=== PATIENT | female | born 1930 | race Caucasian/White ===

== ENCOUNTER 2018-11-15 14:53 | Inpatient (IN) ==
[2018-11-15] MEDS ORDERED: traMADol 50 MG TABLET PO PRN (17:03)
[2018-11-15] MEDS ORDERED: Naloxone 0.4 MG/ML INJ IVP PRN (17:03)
--- NOTE | 2018-11-15 17:12 | Internal Med History&Physical ---
Date of Encounter: 11/15/18 Time of Encounter: 17:09 Internal Medicine - H&P: HPI Admitted From: Home Plans for Post Hospital Care: Home History of present illness: Ms. Reyes is a 88 year old female with past medical history of CHF, hypertension, hyperlipidemia, and irregular rhythm WHO presented to [facility] ED for shortness of breath. She went to see her PCP on Monday for urinary tract infection, a routine EKG found new onset of atrial fibrillation, patient was started on Bactrim. She already taking metoprolol and heart rate was controlled. She did not receive anticoagulation with unknown reason. She also has known history of CHF, about 2-1/2 weeks ago Lasix dose has been adjusted by nephrology due to worsening leg swelling. Today, patient states that he she experienced worsening shortness of breath, accompanied by daughter, she went to emergency room. Labs revealed an elevated troponin, patient received 1 dose of 40 mg Lasix IV, and was transferred to this hospital for further evaluation and management. Upon arrival, patient is alert and oriented 3. Her vital signs were stable with heart rate about 80 degrees. Telemetry showed atrial fibrillation, rate controlled. Patient will be admitted for further evaluation and treatment. CODE STATUS discussed with the patient, she wishes full code at this point. Past Med Surg Social Fam HX - Past Medical History Medical history: cancer, hyperlipidemia, hypertension Additional medical history: colon ca, Psychiatric history: no psych history - Past Surgical History Surgical History: colectomy Additional surgical history: CTR - Social History Smoking Status: Never smoker Smokeless Tobacco Status: No Alcohol use: none Drug use: none Internal Medicine - H&P: Meds Amlodipine Besylate 5 mg PO DAILY 05/10/17 [History] Aspirin [Lo-Dose Aspirin EC] 81 mg PO DAILY 05/10/17 [History] Atorvastatin Calcium [Lipitor] 20 mg PO HS 05/10/17 [History] Cranberry Conc/C/Bacill Coag [Cranberry Tablet] 1 each PO DAILY 05/10/17 [History] Ergocalciferol (VITAMIN D2) [Vitamin D] 400 unit PO DAILY 05/10/17 [History] Furosemide [Lasix] 40 mg PO TID 05/10/17 [History] Magnesium 500 mg PO DAILY 05/10/17 [History] Melatonin [Melatin] 3 mg PO HS 05/10/17 [History] Metoprolol Succinate 100 mg PO DAILY 05/10/17 [History] Multivit-Min/FA/Lycopen/Lutein [Centrum Silver Tablet] 1 each PO DAILY 05/10/17 [History] Oxybutynin [Ditropan] 5 mg PO HS 05/10/17 [History] raNITIdine HCl [Zantac] 150 mg PO BID 05/10/17 [History] Allergy/AdvReac Type Severity Reaction Status Date / Time No Known Allergies Allergy Verified 05/10/17 08:08 All Systems PM: A 10-system review of systems was performed and is negative for pertinent findings except as documented above in the HPI. Review of systems: REVIEW OF SYSTEMS: CONSTITUTIONAL: No weight loss, fever, chills, weakness or fatigue. HEENT: Eyes: No visual loss, blurred vision, double vision or yellow sclerae. Ears, Nose, Throat: No hearing loss, sneezing, congestion, runny nose or sore throat. SKIN: No rash or itching. CARDIOVASCULAR: No chest pain, chest pressure or chest discomfort. No palpitations. see HPI. RESPIRATORY: No shortness of breath, cough or sputum. GASTROINTESTINAL: No anorexia, nausea, vomiting or diarrhea. No abdominal pain or blood. GENITOURINARY: No dysuria, urgency, or frequency. NEUROLOGICAL: No headache, dizziness, syncope, paralysis, ataxia, numbness or tingling in the extremities. No change in bowel or bladder control. MUSCULOSKELETAL: No muscle, back pain, joint pain or stiffness. HEMATOLOGIC: No anemia, bleeding or bruising. LYMPHATICS: No enlarged nodes. No history of splenectomy. PSYCHIATRIC: No history of depression or anxiety. ENDOCRINOLOGIC: No reports of sweating, cold or heat intolerance. No polyuria or polydipsia. - Constitutional Vitals: Temp Pulse BP Pulse Ox 97.9 F 78 127/76 83 11/15/18 16:44 11/15/18 16:44 11/15/18 16:44 11/15/18 16:44 General appearance: Present: cooperative, A&O X 3, answers questions appropriately Exam: PHYSICAL EXAMINATION: GENERAL APPEARANCE: The patient is alert, oriented and in no acute distress. HEENT: Head is normocephalic. The sinuses are nontender. Pupils are equal and reactive. The nares are patent. Oropharynx clear without lesions. NECK: Supple without lymphadenopathy. HEART: Regular rate and rhythm. LUNGS: No crackles or wheezes are heard. ABDOMEN: Soft, nontender, nondistended with good bowel sounds heard. Inguinal area is normal. EXTREMITIES: 2 + edema on BLE. NEUROLOGICAL: Gross nonfocal. SKIN: Warm and dry without any rash. - Assessment and plan (1) CHF (congestive heart failure), NYHA class III Current Visit: Yes Status: Acute Assessment and plan: A 80-year-old female with history of CHF presented with worsening shortness of breath and leg edema. She received IV Lasix at outside hospital ED. Patient stated she never see any cardiology for her heart failure. Unclear whether there was echocardiogram was done in the past. - Patient was clearly volume overloaded on physical exam, we will continue IV Lasix. - Labs including BNP, TSH, BMP in the morning, echocardiogram in the morning. - Chest x-ray ordered. - Cardiology consult for newly diagnosed CHF. Qualifiers: Congestive heart failure chronicity: acute on chronic Qualified Code(s): I50.23 - Acute on chronic systolic (congestive) heart failure (2) Afib Current Visit: Yes Status: Acute Assessment and plan: Patient reported that she has been diagnosed with irregular rhythm in the past, unclear it is atrial fibrillation or not because there is no record available. EKG at [facility] ED showed atrial fibrillation. She already take metoprolol 100 mg once a day at home, heart rate was controlled. - chads score 3, unclear why the patient was not on anticoagulation, maybe because it was diagnosed recently. - Pending TSH and echocardiogram. - Cardiology consult. Qualifiers: Atrial fibrillation type: chronic Qualified Code(s): I48.2 - Chronic atrial fibrillation (3) HTN (hypertension) Current Visit: No Status: Chronic Assessment and plan: BP controlled, continue home medications. Qualifiers: Hypertension type: essential hypertension Qualified Code(s): I10 - Essential (primary) hypertension (4) Hyperlipidemia Current Visit: No Status: Chronic Assessment and plan: Continue home medication. Qualifiers: Hyperlipidemia type: pure hypercholesterolemia Qualified Code(s): E78.00 - Pure hypercholesterolemia, unspecified; E78.0 - Pure hypercholesterolemia (5) Elevated troponin Current Visit: Yes Status: Acute Assessment and plan: Report received from [facility] stated the patient has elevated troponin. Unknown etiology as his chronic, and unknown baseline, could be caused by CHF/tachycardia/demanding ischemia. Continue cycling troponin, (6) DVT prophylaxis Current Visit: Yes Status: Acute Assessment and plan: Heparin subcutaneous. - Time Spent With Patient Total time spent is greater than 50% in coordination of care (as documented) at patient's floor/unit and/or counseling patient: Greater than 35 minutes
[2018-11-15 17:57] LABS: Calcium 9.5 mg/dL (8.6-10.3); Potassium 3.2 mEq/L (3.5-5.1)
[2018-11-15 18:02] LABS: Troponin I 0.1 ng/mL (< 0.04)
[2018-11-15] MEDS: Furosemide 80 MG in 0.9 % Sodium Chloride 50 ML IVPB SCH (18:35)
[2018-11-15] MEDS: Famotidine 20 MG TABLET PO SCH (20:18)
[2018-11-15] MEDS: Melatonin 3 MG TABLET PO SCH (20:18)
[2018-11-15] MEDS: *HR* Heparin 5,000 UNIT/ML VIAL SQ SCH (21:39)
[2018-11-15] MEDS: Acetaminophen 325 MG TABLET PO PRN (21:55)
[2018-11-16 04:09] LABS: Bilirubin,Urine Negative (Negative); Blood,Urine Negative (Negative); Clarity,Urine Clear (Clear); Color,Urine Yellow (Yellow); Glucose,Urine (UA) Normal (Normal); Ketones,Urine Negative (Negative); Leukocyte Esterase,Urine Moderate (Negative); Nitrite,Urine Negative (Negative); PH,Urine 7.5 pH Units (5.0-8.0); Protein,Urine Negative (Neg-Trace); Specific Gravity,Urine 1.014 (1.010-1.025); Urobilinogen,Urine Normal (Normal)
[2018-11-16 04:11] LABS: Bacteria,Urine None Seen per hpf (None-Few); Hyaline Casts,Urine None Seen per lpf (None-Few); Squamous Epithelial Cell,Urine Moderate per lpf (None-Few)
[2018-11-16] MEDS: *HR* Heparin 5,000 UNIT/ML VIAL SQ SCH ×2 (05:26→18:29)
[2018-11-16] MEDS: Furosemide 80 MG in 0.9 % Sodium Chloride 50 ML IVPB SCH (05:26)
[2018-11-16 06:19] LABS: Basophils % 0.5 %; Eosinophils # 0.1 K/mcL (0.0-0.6); Eosinophils % 1.4 %; Hematocrit 29.9 % (35.3-44.9); Hemoglobin 9.4 g/dL (11.5-15.4); Immature Granulocytes % 0.2 % (0-4); Lymphocytes # 1.2 K/mcL (0.6-4.6); Lymphocytes % 19.5 %; Mean Corpuscular HGB Conc 31.4 g/dL (31.6-35.5); Mean Corpuscular Hemoglobin 27.2 pg (28.0-33.3); Mean Corpuscular Volume 86.4 fL (83.0-100.0); Mean Platelet Volume 9.6 fL (9.4-12.4); Monocytes # 0.8 K/mcL (0.0-1.3); Monocytes % 12.7 %; Neutrophils # 4.1 K/mcL (1.6-8.9); Platelet Count 209 K/mcL (140-400); Red Blood Count 3.46 M/mcL (3.82-4.97); Red Cell Distribution Width 14.8 % (11.5-14.5); Segmented Neutrophils % 65.7 %
[2018-11-16 06:20] LABS: INR 1.3; Prothrombin Time 14.7 Seconds (9.4-12.1)
[2018-11-16 06:43] LABS: Albumin 3.2 g/dL (3.5-5.7); Albumin/Globulin Ratio 1.1 (1.1-2.2); Bilirubin,Total 0.9 mg/dL (0.3-1.0); Globulin 2.9 g/dL (2.4-3.5); Magnesium 2.4 mg/dL (1.6-2.6); Potassium 3.3 mEq/L (3.5-5.1); Total Protein 6.1 g/dL (6.4-8.9)
[2018-11-16 06:48] LABS: Thyroid Stimulating Hormone 0.77 mcIU/mL (0.340-5.600)
--- NOTE | 2018-11-16 08:55 | Cardiology Consult Note ---
<Angie Monroe - Last Filed: 11/16/18 13:04> Date of Encounter: 11/16/18 Time of Encounter: 08:15 Assessment and Plan (1) CHF (congestive heart failure), NYHA class III Current Visit: Yes Status: Acute But likely exacerbation as she has been on lasix outpatient in the past and recently in the past one month her edema and shortness of breath has worsened. BNP is at 544. She does follow outpatient with nephrology, and her creatinine at admission was 1.96 and this morning is 2.10, appears to have CKD stage 4. Her output has not been very significant. She may need nephrology based hemodialysis if her edema does not improve and continues to have shortness of breath. -Continue Lasix 80 mg IV BID -Fluid restriction of less than 2 liters -Strict fluid restriction diet Qualifiers: Congestive heart failure chronicity: acute on chronic Qualified Code(s): I50.23 - Acute on chronic systolic (congestive) heart failure (2) Afib Current Visit: Yes Status: Acute New onset atrial fibrillation noted at outpatient office 4 days ago. She does give history of irregular heart rhythm in the past but is not sure of the ariel gnosis. She is rate controlled and was already on metoprolol 100 mg daily at home. Is not on any home anticoagulants. Her ChadsVac score is 5 so she is high risk and would likely benefit from an anticoagulant. Recommended GI evaluation first as she stated history of bloody bowel movement one month ago and currently anemic. -Repeat EKG pending -Continue home metoprolol Qualifiers: Atrial fibrillation type: chronic Qualified Code(s): I48.2 - Chronic atrial fibrillation (3) Elevated troponin Current Visit: Yes Status: Acute Elevated troponin in setting of CHF exacerbation. Troponin 0.10, 0.10 and 0.09 at admission. She denies any previous or current chest pain. No previous echo. -TTE pending Discussion w patient/family: The assessment and plan as outlined above was discussed with the patient and/or family members who expressed understanding and agreement. All questions were answered. Thank you for involving us in the care of your patient. Please call with any questions. History of Present Illness Consult date: 11/15/18 Requesting physician: Jorge Romero Consult reason: CHF Chief complaint: shortness of breath History of present illness: Ms. Reyes is a 88 year old female with past medical history of CHF, hypertension and irregylar rhythm who presented to the hospital from [facility] due to shortness of breath ongoing for the past one month. She had presented to her ED on Monday for a UTI and was noted to have atrial fibrillation. She is already on metoprolol 100 mg oral daily. She is not on any anticoagulation. She has been following with nephrology and noted they increased her lasix 2.5 weeks ago due to worsening edema. She does not follow a fluid restriction diet. This morning she is resting in bed with 2 liters of nasal cannula with oxygen saturation of 86%. She denied feeling short of breath this morning with the nasal canula. She said her shortness of breath has improved since her admission but also noted she is usually not short of breath at rest and it worsens with walking. She also noted decrease in ability to fully empty her bladder. She denied PND or orthopnea. She denies fever, chills, emesis or chest pain. Past Med Surg Social Fam HX - Past Medical History Medical history: cancer, hyperlipidemia, hypertension Additional medical history: colon ca, Psychiatric history: no psych history - Past Surgical History Surgical History: colectomy Additional surgical history: CTR - Social History Smoking Status: Never smoker Smokeless Tobacco Status: No Alcohol use: none Drug use: none - Family History Father Living Status: Age at : 71 Cause of : heart trouble Hx Family Cardiac Disorders: Yes Hx Family Respiratory Disorders: No Hx Family Cancer: No Hx Family GI Disorders: No Hx Family Genitourinary Disorders: No Hx Family Endocrine Disorder: No Hx Family Musculoskeletal Disorders: No Hx Family Neuromuscular Disorders: No Hx Family Neurologic Disorders: No Hx Family HEENT Disorders: No Hx Family Autoimmune Disorders: No Hx Family Reproductive Disorders: No Hx Family Psychosocial Disorders: No Hx Family Medical Disorders: Yes Medications and Allergies RX: Aspirin [Lo-Dose Aspirin EC] 81 mg PO DAILY 05/10/17 [History] RX: Atorvastatin Calcium [Lipitor] 20 mg PO HS 05/10/17 [History] RX: Cranberry Conc/C/Bacill Coag [Cranberry Tablet] 1 each PO DAILY 05/10/17 [History] RX: Ergocalciferol (VITAMIN D2) [Vitamin D] 400 unit PO DAILY 05/10/17 [History] RX: Furosemide [Lasix] 80 mg PO DAILY 05/10/17 [History] RX: Melatonin [Melatin] 3 mg PO HS 05/10/17 [History] RX: Multivit-Min/FA/Lycopen/Lutein [Centrum Silver Tablet] 1 each PO DAILY 05/10/17 [History] RX: Oxybutynin [Ditropan] 5 mg PO HS 05/10/17 [History] Amlodipine Besylate 5 mg PO DAILY 11/15/18 [History] Metoprolol Succinate [Toprol Xl] 100 mg PO DAILY 11/15/18 [History] RX: Sulfamethoxazole/Trimeth DS [Bactrim Ds] 1 tab PO BID 11/15/18 [History] Ranitidine HCl [Zantac 75] 75 mg PO DAILY 11/15/18 [History] Allergy/AdvReac Type Severity Reaction Status Date / Time No Known Allergies Allergy Verified 11/15/18 21:48 All Systems Review: The remainder of the systems were reviewed and are negative - Constitutional Constitutional: no chills, no fever(s), no weakness - Cardiovascular Cardiovascular: dyspnea on exertion, no chest pain at rest, no chest pain with exertion, no dyspnea at rest, no orthopnea, no palpitations, no paroxysmal nocturnal dyspnea - Respiratory Respiratory: dyspnea, no cough, no wheezing - Gastrointestinal Gastrointestinal: no constipation, no diarrhea - Integumentary Integumentary: no erythema, no rash - Neurological Neurological: no focal weakness, no numbness - Psychiatric Psychiatric: no anxiety, no depression Physical Examination Vital Signs, Last 4 Hours Temp Pulse Resp BP Pulse Ox 11/16/18 06:49 97.2 F L 79 16 114/65 94 General: Conversant, No Apparent Distress HEENT: Atraumatic, Normocephaly, Mucus Membranes Moist Neck: No JVD, Normal carotid pulses Cardiac: Reg Rate and Rhythm, Normal S1 and S2, No Murmur Lungs: Normal Breath Sounds, Other (crackles bilateral lower lobes) Neuro: Alert and responsive Abdomen: Soft, Non-Tender Skin: No rashes noted on visualized skin Musculoskeletal: No Chest Wall Tenderness Extremities: No Cyanosis, No Edema, Normal Pulses Results 11/16/18 05:12 11/16/18 05:12 Lab Results 11/15/18 11/15/18 11/16/18 17:13 23:41 05:12 WBC Hgb Hct Plt Count INR Sodium 136 Potassium 3.2 L Chloride 94 L Carbon Dioxide 31 H BUN 17 Creatinine 1.96 H Glucose 105 Calcium 9.5 Magnesium Total Bilirubin AST ALT Alkaline Phosphatase Troponin I 0.10 H* 0.10 H* 0.09 H* B-Natriuretic Peptide TSH 11/16/18 11/16/18 11/16/18 05:12 05:12 05:12 WBC 6.2 Hgb 9.4 L Hct 29.9 L Plt Count 209 INR 1.3 Sodium 137 Potassium 3.3 L Chloride 95 L Carbon Dioxide 32 H BUN 19 Creatinine 2.10 H Glucose 84 Calcium 9.0 Magnesium 2.4 Total Bilirubin 0.9 AST 26 ALT 13 Alkaline Phosphatase 72 Troponin I B-Natriuretic Peptide TSH 11/16/18 11/16/18 05:12 05:12 WBC Hgb Hct Plt Count INR Sodium Potassium Chloride Carbon Dioxide BUN Creatinine Glucose Calcium Magnesium Total Bilirubin AST ALT Alkaline Phosphatase Troponin I B-Natriuretic Peptide 544 H TSH 0.770 Consult Discharge Plan - Plan Referrals: NONE,PCP [Primary Care Provider] - <Sergio Aleman - Last Filed: 11/16/18 14:16> Date of Encounter: 11/16/18 - Attending Attestation I examined this patient and my medical decision-making was reviewed with the Resident Physician. I agree with the documented findings, disposition and treatment plan as described except to the extent set forth below. AF of uncertain duration, presents with fluid overload. Recommend diuresis, will evaluate echo. Assessment and Plan Discussion w patient/family: The assessment and plan as outlined above was discussed with the patient and/or family members who expressed understanding and agreement. All questions were answered. Thank you for involving us in the care of your patient. Please call with any questions. History of Present Illness History of present illness: Ms. Reyes is a 88 year old female All Systems Review: The remainder of the systems were reviewed and are negative Physical Examination Vital Signs, Last 4 Hours Temp Pulse Resp BP Pulse Ox 11/16/18 11:07 98 F 75 16 120/71 93 Results 11/16/18 05:12 11/16/18 05:12 Lab Results 11/15/18 11/15/18 11/16/18 17:13 23:41 05:12 WBC Hgb Hct Plt Count INR Sodium 136 Potassium 3.2 L Chloride 94 L Carbon Dioxide 31 H BUN 17 Creatinine 1.96 H Glucose 105 Calcium 9.5 Magnesium Total Bilirubin AST ALT Alkaline Phosphatase Troponin I 0.10 H* 0.10 H* 0.09 H* B-Natriuretic Peptide TSH 11/16/18 11/16/18 11/16/18 05:12 05:12 05:12 WBC 6.2 Hgb 9.4 L Hct 29.9 L Plt Count 209 INR 1.3 Sodium 137 Potassium 3.3 L Chloride 95 L Carbon Dioxide 32 H BUN 19 Creatinine 2.10 H Glucose 84 Calcium 9.0 Magnesium 2.4 Total Bilirubin 0.9 AST 26 ALT 13 Alkaline Phosphatase 72 Troponin I B-Natriuretic Peptide TSH 11/16/18 11/16/18 05:12 05:12 WBC Hgb Hct Plt Count INR Sodium Potassium Chloride Carbon Dioxide BUN Creatinine Glucose Calcium Magnesium Total Bilirubin AST ALT Alkaline Phosphatase Troponin I B-Natriuretic Peptide 544 H TSH 0.770
[2018-11-16] MEDS ORDERED: [UNRECOGNIZED DRUG - OTHER] PO SCH (09:00)
--- NOTE | 2018-11-16 09:15 | Internal Med Progress Note ---
Hospitalist Progress Note - Encounter Date of Encounter: 11/16/18 Time of Encounter: 08:57 - Subjective Interval History: Patient seen and examined this morning at bedside. No acute overnight events. Breathing improved. Good urine output. Denies chest pain or palpitation. Mentions she has irregular heart rate for many years. Denies any urinary com plaints including dysuria abdominal pain or back pain. No fever or chills nausea vomiting or diarrhea. - Exam Vitals: Temp Pulse Resp BP Pulse Ox 97.2 F L 79 16 114/65 94 11/16/18 06:49 11/16/18 06:49 11/16/18 06:49 11/16/18 06:49 11/16/18 06:49 Exam: General: In no acute distress. Conversant.. Respiratory exam: no accessory muscle use, rhonchi, wheezes. Crackles at base b/l Cardiovascular exam: irregular, +S1, +S2. no murmur, gallop, rubs. GI/Abdominal exam: Non-tender, Non-distended, normal bowel sounds, soft, no peritoneal signs. Extremities exam: full ROM, 2+ pedal edema, warm, pulses palpable in b/l lower extremities. no calf tenderness Neurological exam: CN II-XII intact, AO X3, no focal deficits. no speech deficit Skin exam: b/l LE chronic dermatitis - Assessment and Plan (1) CHF (congestive heart failure), NYHA class III Current Visit: Yes Status: Acute (2) Afib Current Visit: Yes Status: Acute (3) HTN (hypertension) Current Visit: No Status: Chronic (4) Hyperlipidemia Current Visit: No Status: Chronic (5) DVT prophylaxis Current Visit: Yes Status: Acute (6) Elevated troponin Current Visit: Yes Status: Acute - Summary of Assessment and Plan Summary of Assessment and Plan: Acute on chronic CHF - unclear systolic vs diastolic - Patient with elevated BNP and sign of volume overload on admission - f/u Chest x-ray - Decrease lasix to 40 BID IV given renal function - Cardiology consulted Acute hypoxic respiratory failure - likely related to CHF - Lasix as above. - improved Elevated troponin - likely from chf - without chest pain - Cardiology recommendation appreciated. Afib - CHADSVASC score of 5 - unclear why the patient was not on anticoagulation. Patients Will start on anticoagulation on discharge. - On metoprolol for rate control - TSH normal - f/u echocardiogram. - Cardiology consulted. hypokalemia - f/u at 3 pm - Will replete if decreasing as on lasix. Anemia - Unknown baseline - No signs of acute bleeding. Did not have colonoscopy in past - Monitor for now. - add iron profile and ferritin to morning lab - f/u outpatient CKD - Unknown baseline - Mildly worse today - Was needing high dose of lasix from nephrology recently - Monitor renal function abnormal UA - aymtomatic - monitor for now HTN - BP stable - continue home medications. Hyperlipidemia - Continue home medication. DVT prophylaxis - Heparin subcutaneous. - Time Spent with Patient Total time spent is greater than 50% in coordination of care (as documented) at patient's floor/unit and/or counseling patient: Internal Medicine: Result - Labs CBC & Chem 7: 11/16/18 05:12 11/16/18 05:12 Labs: Short CBC 11/16/18 Range/Units 05:12 WBC 6.2 (4.3-11.1) K/mcL Hgb 9.4 L (11.5-15.4) g/dL Hct 29.9 L (35.3-44.9) % Plt Count 209 (140-400) K/mcL Neutrophils # 4.1 (1.6-8.9) K/mcL BMP 11/15/18 11/16/18 17:13 05:12 Sodium 136 137 Potassium 3.2 L 3.3 L Chloride 94 L 95 L Carbon Dioxide 31 H 32 H BUN 17 19 Creatinine 1.96 H 2.10 H Glucose 105 84 Calcium 9.5 9.0 Cardiac Enzymes 11/15/18 11/15/18 11/16/18 Range/Units 17:13 23:41 05:12 Troponin I 0.10 H* 0.10 H* 0.09 H* (< 0.04) ng/mL Liver Function 11/16/18 Range/Units 05:12 Total Bilirubin 0.9 (0.3-1.0) mg/dL AST 26 (13-39) Units/L ALT 13 (7-52) Units/L Alkaline Phosphatase 72 (34-104) Units/L Albumin 3.2 L (3.5-5.7) g/dL Urine 11/16/18 Range/Units 03:56 Urine Color Yellow (Yellow) Urine Clarity Clear (Clear) Urine pH 7.5 (5.0-8.0) pH Units Ur Specific [place] 1.014 (1.010-1.025) Urine Protein Negative (Neg-Trace) mg/dL Urine Glucose (UA) Normal (Normal) mg/dL - ABG Interpretation ABG results: PT/INR, D-dimer PT 14.7 Seconds (9.4-12.1) H 11/16/18 05:12 Consult Discharge Plan - Plan Referrals: NONE,PCP [Primary Care Provider] - (1) CHF (congestive heart failure), NYHA class III Qualifiers: Qualified Code(s): I50.23 - Acute on chronic systolic (congestive) heart failure (2) Afib Qualifiers: Qualified Code(s): I48.2 - Chronic atrial fibrillation (3) HTN (hypertension) Qualifiers: Qualified Code(s): I10 - Essential (primary) hypertension (4) Hyperlipidemia Qualifiers: Qualified Code(s): E78.00 - Pure hypercholesterolemia, unspecified; E78.0 - Pure hypercholesterolemia
[2018-11-16] MEDS: Multivit/Ca/Min/Fe/FA 1 TAB TABLET PO SCH (09:22)
[2018-11-16] MEDS: amLODIPine 5 MG TABLET PO SCH (09:22)
[2018-11-16] MEDS: Aspirin Enteric Coated 81 MG Tablet PO SCH (09:22)
[2018-11-16] MEDS: Metoprolol XL (24 HR) Succ 50 MG TAB.ER.24H PO SCH (09:22)
--- NOTE | 2018-11-16 12:35 | Electrocardiograph Report ---
[place] [id number] Test Date: 2018-11-16 Pat Name: Li Reyes Department: 111 Room: [id number] Gender: F Manager Hiv: CALLY : 1930 Requested By: Angie Monroe Order Number: [id number] Reading MD: Chucky Day Measurements Intervals [place] Rate: 77 P: CO: 0 QRS: 60 QRSD: 102 T: -14 QT: 417 QTc: 449 Interpretive Statements ATRIAL FIBRILLATION LOW QRS VOLTAGE IN EXTREMITY LEADS POSSIBLE ANTERIOR MYOCARDIAL INFARCTION, PROBABLY OLD ABNORMAL RHYTHM ECG Electronically Signed On 11-16-2018 12:33:44 EST by Chucky Day
--- NOTE | 2018-11-16 15:05 | Event Note ---
Date of Encounter: 11/16/18 Time of Encounter: 15:02 - Cardiology Event Note Echocardiogram reviewed by cardiology. EF preserved. TTE:LVEF 65-70%. Normal LV chamber size and systolic function. Mild concentric left ventricular hypertrophy. Indeterminate diastolic function. Normal right ventricular structure and function. Severely dilated left atrium. Mildly dilated right atrium. Moderate mitral regurgitation. Moderate tricuspid regurgitation. Moderate pulmonary hypertension. Small pericardial effusion without echocardiographic evidence of tamponade. Patient has diastolic CHF. Continue diuresis until euvolemic. Currently rate controlled afib. Discussed with Dr. Aleman, Ideally she should be on terminal superintendent AC with coumadin or NOAC due to high risk for CVA. Due to concern for melena in the past month recommend GI evaluation prior to starting. Continue asa. Out-pt f/u will be coordinated. Cardiology will sign off.
[2018-11-16 15:21] LABS: Calcium 9.3 mg/dL (8.6-10.3); Potassium 3.4 mEq/L (3.5-5.1)
[2018-11-16] MEDS: Furosemide 40 MG/4 ML VIAL IVP SCH (18:29)
[2018-11-16] MEDS: Melatonin 3 MG TABLET PO SCH (21:55)
[2018-11-16] MEDS: Famotidine 20 MG TABLET PO SCH (21:55)
[2018-11-17 04:11] LABS: Hematocrit 28.8 % (35.3-44.9); Hemoglobin 9.1 g/dL (11.5-15.4); Immature Reticulocyte % 32.8 % (11.0-38.0); Retculocyte # 0.05 M/mcL (0.05-0.10); Reticulocyte % 1.6 % (1.6-2.8)
[2018-11-17 04:33] LABS: Calcium 8.6 mg/dL (8.6-10.3); Potassium 3.2 mEq/L (3.5-5.1)
[2018-11-17] MEDS: *HR* Heparin 5,000 UNIT/ML VIAL SQ SCH ×2 (05:58→18:30)
[2018-11-17] MEDS: Furosemide 40 MG/4 ML VIAL IVP SCH ×2 (09:18→18:30)
[2018-11-17] MEDS: Metoprolol XL (24 HR) Succ 50 MG TAB.ER.24H PO SCH (09:18)
[2018-11-17] MEDS: Multivit/Ca/Min/Fe/FA 1 TAB TABLET PO SCH (09:19)
[2018-11-17] MEDS: amLODIPine 5 MG TABLET PO SCH (09:19)
[2018-11-17] MEDS: Magnesium Oxide 400 MG TABLET PO SCH (09:19)
[2018-11-17] MEDS: Aspirin Enteric Coated 81 MG Tablet PO SCH (09:19)
--- NOTE | 2018-11-17 10:44 | Internal Med Progress Note ---
Hospitalist Progress Note - Encounter Date of Encounter: 11/17/18 Time of Encounter: 10:22 - Subjective Interval History: Patient seen and examined this morning at bedside. No acute overnight events. Breathing improving. No chest pain or palpitation. Denies Dark BM. Wants to go home. - Exam Vitals: Temp Pulse Resp BP Pulse Ox 98.5 F 65 16 122/64 95 11/17/18 07:34 11/17/18 07:34 11/17/18 07:34 11/17/18 07:34 11/17/18 07:34 Exam: General: In no acute distress. Conversant.. Respiratory exam: no accessory muscle use, rhonchi, wheezes. Crackles at base and mid lungs b/l Cardiovascular exam: RRR +S1, +S2. no murmur, gallop, rubs. GI/Abdominal exam: Non-tender, Non-distended, normal bowel sounds, soft, no peritoneal signs. Extremities exam: full ROM, 2+ pedal edema, warm, pulses palpable in b/l lower extremities. no calf tenderness Neurological exam: CN II-XII intact, AO X3, no focal deficits. no speech deficit Skin exam: b/l LE chronic dermatitis - Assessment and Plan (1) CHF (congestive heart failure), NYHA class III Current Visit: Yes Status: Acute (2) Afib Current Visit: Yes Status: Acute (3) HTN (hypertension) Current Visit: No Status: Chronic (4) Hyperlipidemia Current Visit: No Status: Chronic (5) DVT prophylaxis Current Visit: Yes Status: Acute (6) Elevated troponin Current Visit: Yes Status: Acute - Summary of Assessment and Plan Summary of Assessment and Plan: Acute on chronic CHF - diastolic HF. EF 65-70%. indetermidate diastlic function. severely dialated lt atrium, mod Pul HTN. - c/w lasix 40 BID IV given renal function Acute hypoxic respiratory failure - likely related to CHF - Lasix as above. - improved Elevated troponin - likely from chf - without chest pain - Cardiology recommendation appreciated. No intervention. - Cardiology signed off. Afib - CHADSVASC score of 5 - unclear why the patient was not on anticoagulation. Likely related to concern of GI bleed. Patient mentions dark stool about a week ago and also has hemorrhoids. Mentions she had GI surery for colon cancer in . - On metoprolol for rate control - TSH normal - echocardiogram as above - Cardiology recommended GI workup before starting AC. - patient undecided whether wants to be on AC. - will monitor H&H and stool occult for now. If dropping agrees to get colo noscopy. hypokalemia - repleted Anemia - Unknown baseline - No signs of acute bleeding. Did not have colonoscopy in past - with iron deficiency - f/u H&H and stool occult. CKD - Unknown baseline - improved - c/w lasix 40 BID abnormal UA - aymtomatic. urine cultures negative - no antibiotics indicated. HTN - BP stable - continue home medications. Hyperlipidemia - Continue home medication. DVT prophylaxis - Heparin subcutaneous. - Time Spent with Patient Total time spent is greater than 50% in coordination of care (as documented) at patient's floor/unit and/or counseling patient: Internal Medicine: Result - Labs CBC & Chem 7: 11/17/18 03:53 11/17/18 03:53 Labs: Short CBC 11/17/18 Range/Units 03:53 Hgb 9.1 L (11.5-15.4) g/dL Hct 28.8 L (35.3-44.9) % BMP 11/16/18 11/17/18 14:48 03:53 Sodium 137 138 Potassium 3.4 L 3.2 L Chloride 94 L 96 L Carbon Dioxide 37 H 31 H BUN 21 20 Creatinine 2.17 H 1.83 H Glucose 119 H 89 Calcium 9.3 8.6 - ABG Interpretation ABG results: PT/INR, D-dimer PT 14.7 Seconds (9.4-12.1) H 11/16/18 05:12 - Impressions Impressions Echocardiogram 11/16/18 17:07 Impressions: LVEF 65-70%. Normal LV chamber size and systolic function. Mild concentric left ventricular hypertrophy. Indeterminate diastolic function. Normal right ventricular structure and function. Severely dilated left atrium. Mildly dilated right atrium. Moderate mitral regurgitation. Moderate tricuspid regurgitation. Moderate pulmonary hypertension. Small pericardial effusion without echocardiographic evidence of tamponade. Left Ventricular Wall Motion: Rest Echo Findings All wall segments showed normal motion. Findings: Study Quality * Technically adequate exam. ECG Findings * Atrial fibrillation. Left Ventricle * LVEF 65-70%. * Normal LV chamber size and systolic function. * Mild concentric left ventricular hypertrophy. * Indeterminate diastolic function. Right Ventricle * Normal right ventricular structure and function. Left Atrium * Severely dilated left atrium. Right Atrium * Mildly dilated right atrium. Interatrial Septum * Interatrial septum not well evaluated. * No evidence of PFO by color Doppler. Aortic Valve * Trileaflet aortic valve. * Mildly calcified aortic valve leaflets. * No aortic stenosis. * No aortic regurgitation. Mitral Valve * Normal mitral valve structure. * No mitral stenosis. * Moderate mitral regurgitation. Tricuspid Valve * Normal tricuspid valve structure. * No tricuspid stenosis. * Moderate tricuspid regurgitation. * Estimated RVSP is 55 mmHg. * Estimated RA pressure is 8 mmHg. * Moderate pulmonary hypertension. Pulmonic Valve * Pulmonic valve is not well visualized. * No pulmonic stenosis. * Trace pulmonic regurgitation. Aorta * Normally sized aortic root. Pericardium * There is a small pericardial effusion present. * There is no echocardiographic evidence of tamponade. * Excessive respiratory variation is absent. IVC * The IVC is dilated. * > 50% respiratory change Consult Discharge Plan - Plan Referrals: NONE,PCP [Primary Care Provider] - (1) CHF (congestive heart failure), NYHA class III Qualifiers: Congestive heart failure chronicity: acute on chronic Qualified Code(s): I50.23 - Acute on chronic systolic (congestive) heart failure (2) Afib Qualifiers: Atrial fibrillation type: chronic Qualified Code(s): I48.2 - Chronic atrial fibrillation (3) HTN (hypertension) Qualifiers: Hypertension type: essential hypertension Qualified Code(s): I10 - Essential (primary) hypertension (4) Hyperlipidemia Qualifiers: Hyperlipidemia type: pure hypercholesterolemia Qualified Code(s): E78.00 - Pure hypercholesterolemia, unspecified; E78.0 - Pure hypercholesterolemia
[2018-11-17] MEDS: Famotidine 20 MG TABLET PO SCH (20:35)
[2018-11-17] MEDS: Melatonin 3 MG TABLET PO SCH (20:36)
[2018-11-18 04:46] LABS: Calcium 8.8 mg/dL (8.6-10.3); Potassium 3.4 mEq/L (3.5-5.1)
[2018-11-18] MEDS: *HR* Heparin 5,000 UNIT/ML VIAL SQ SCH ×2 (06:37→19:06)
[2018-11-18] MEDS ORDERED: RANITIDINE HCL 75 MG PO SCH (09:00)
[2018-11-18] MEDS: amLODIPine 5 MG TABLET PO SCH (11:03)
[2018-11-18] MEDS: Multivit/Ca/Min/Fe/FA 1 TAB TABLET PO SCH (11:03)
[2018-11-18] MEDS: Magnesium Oxide 400 MG TABLET PO SCH (11:03)
[2018-11-18] MEDS: Metoprolol XL (24 HR) Succ 50 MG TAB.ER.24H PO SCH (11:03)
[2018-11-18] MEDS: Furosemide 40 MG/4 ML VIAL IVP SCH ×2 (11:04→19:06)
[2018-11-18] MEDS: Aspirin Enteric Coated 81 MG Tablet PO SCH (11:04)
[2018-11-18] MEDS: Cholecalciferol (D-3) 1,000 UNIT TABLET PO SCH (11:04)
[2018-11-18] MEDS: Melatonin 3 MG TABLET PO SCH (21:02)
[2018-11-18] MEDS: Famotidine 20 MG TABLET PO SCH (21:02)
--- NOTE | 2018-11-18 21:41 | Internal Med Progress Note ---
Hospitalist Progress Note - Encounter Date of Encounter: 11/18/18 Time of Encounter: 15:00 - Subjective Interval History: SUBJECTIVE: The patient feels better. She continues to have moderate swelling of her lower legs/feet. Despite the fact treatment with twice a day IV Lasix. It is not associated with hypoxia. Denies coughing and wheezing. Denies abdominal pain, nausea and vomiting. She makes fair amounts of urine. OBJECTIVE: Skin: Free of rash and discoloration. ENMT: Oral/pharyngeal mucosa is normal in appearance. Eyes: Sclera is white. There is no discharge from eyes. Respiratory: Normal breath sounds; no crackles or wheezes. CV: Heart is regular; no gallop or murmur. GI: Abdomen is soft and not tender. There is no palpable mass or visceromegaly. Neuro: There is no focal deficits. ADDITIONAL DATA: Potassium is 3.4; 3.2 yesterday. Bicarb is 36; 31 yesterday. Fasting glucose by BMP is 105. Hemoglobin was checked on 2 occasions. It was 9.4 and 9.1. ASSESSMENT AND PLAN: Acute on chronic diastolic heart failure with mitral regurgitation and atrial fibrillation. I will substituted IV Lasix with combination of her Lozol and Demadex. Fluid restriction of 0504-6313 mL per day. Atrial fibrillation. Rate controlled. To continue Toprol-XL. I will talk to her about anticoagulation; was not getting before this hospitalization. She will need GI workup first, as she does have microcytic iron deficiency anemia. This can be done outpatient. Hypertension. Under control. To continue Toprol-XL. Acute hypokalemia. Secondary to treatment with IV Lasix. We will give her a supplemental potassium chloride. Mildly elevated troponin. Level. Likely secondary to the factors mentioned above. DISPOSITION: I will try to discharge her tomorrow afternoon. I will see, how she is doing with combination of Lozol and Demadex. - Exam Vitals: Temp Pulse Resp BP Pulse Ox 98.0 F 75 16 142/88 95 11/18/18 19:31 11/18/18 19:31 11/18/18 19:31 11/18/18 19:31 11/18/18 19:31 Exam: xx - Assessment and Plan (1) Acute on chronic diastolic heart failure Current Visit: Yes Status: Acute (2) Mitral regurgitation Current Visit: Yes Status: Chronic (3) Afib Current Visit: Yes Status: Acute (4) HTN (hypertension) Current Visit: No Status: Chronic (5) Anemia Current Visit: Yes Status: Chronic (6) Acute hypokalemia Current Visit: Yes Status: Acute (7) Elevated troponin Current Visit: Yes Status: Acute - Time Spent with Patient Total time spent is greater than 50% in coordination of care (as documented) at patient's floor/unit and/or counseling patient: 25 - 35 minutes Plan of Care Discussed with: patient Internal Medicine: Result - Labs CBC & Chem 7: 11/17/18 03:53 11/18/18 04:08 Labs: BMP 11/18/18 04:08 Sodium 136 Potassium 3.4 L Chloride 95 L Carbon Dioxide 36 H BUN 20 Creatinine 1.87 H Glucose 105 Calcium 8.8 - ABG Interpretation ABG results: PT/INR, D-dimer PT 14.7 Seconds (9.4-12.1) H 11/16/18 05:12 Consult Discharge Plan - Plan Referrals: NONE,PCP [Primary Care Provider] - (3) Afib Qualifiers: Atrial fibrillation type: chronic Qualified Code(s): I48.2 - Chronic atrial fibrillation (4) HTN (hypertension) Qualifiers: Hypertension type: essential hypertension Qualified Code(s): I10 - Essential (primary) hypertension (5) Anemia Qualifiers: Anemia type: iron deficiency
[2018-11-19] MEDS: *HR* Heparin 5,000 UNIT/ML VIAL SQ SCH ×2 (06:24→17:42)
[2018-11-19] MEDS: Aspirin Enteric Coated 81 MG Tablet PO SCH (09:12)
[2018-11-19] MEDS: Magnesium Oxide 400 MG TABLET PO SCH (09:12)
[2018-11-19] MEDS: Metoprolol XL (24 HR) Succ 50 MG TAB.ER.24H PO SCH (09:12)
[2018-11-19] MEDS: Torsemide 20 MG TABLET PO SCH (09:12)
[2018-11-19] MEDS: Multivit/Ca/Min/Fe/FA 1 TAB TABLET PO SCH (09:12)
[2018-11-19] MEDS: Cholecalciferol (D-3) 1,000 UNIT TABLET PO SCH (09:12)
[2018-11-19] MEDS: amLODIPine 5 MG TABLET PO SCH (09:13)
--- NOTE | 2018-11-19 14:49 | Gastroenterology Consult Note ---
<Ameya Palma - Last Filed: 11/19/18 15:39> Date of Encounter: 11/19/18 Time of Encounter: 13:30 - Assessment and plan (1) Anemia Current Visit: Yes Status: Chronic Assessment and plan: Patient has new onset atrial fibrillation - cardiology wants GI to rule out bleed before prescribing anticoagulation Patient's Hgb 9.4 (11/16) > 9.1 (11/17) Positive stool occult blood today She admits to melena and fatigue for past 2 weeks Iron 18, % sat 4, transferrin 288, ferritin 38 Will bowel prep patient today Clear liquid diet NPO at midnight Plan for EGD and colonoscopy tomorrow Qualifiers: Anemia type: iron deficiency Qualified Code(s): D50.8 - Other iron defi ciency anemias - Time Spent With Patient Total time spent is greater than 50% in coordination of care (as documented) at patient's floor/unit and/or counseling patient: GI History of Present Illness - Data of Consult Consult date: 11/19/18 Requesting Physician: Guillermo Garcia - Consult Narrative Reason for consult: Low Hgb, possible GI bleed History of present illness: Ms. Reyes is a 88 year old female with PMHx of CHF, HTN, HLD, presents as a transfer to [place] with CHF exacerbation and new onset afib. GI was consulted for anemia with possible GI bleed. Patient's labs were significant for Hgb 9.4, BNP 544, trop 0.1 > 0.1 > 0.09, PT 14.7, INR 1.3, iron 18, transferrin and ferritin normal. Stool occult blood positive. Cardiology saw patient and agrees she needs to be started on anticoagulation for her new onset atrial fibrillation, and they would like GI to rule out bleed. Patient seen and examined today. She states she has noticed generalized weakness and fatigue progressing for the past 2 weeks. She had a bloody bowel movement about a month ago and was seen at [facility], but she denies receiving blood or having a scope at that time. She states for the past couple weeks she has noticed her stool is darker and sometimes tarry. She states she had SOB initially, but it is improving on oxygen. Patient denies ever having an EGD in the past. She reports her last colonoscopy was in 1995, and she had a partial colon resection at [facility] due to cancer. She states she followed up with the surgeon and oncologist for a couple years, but couldn't remember what additional treatments she had. She denies history of smoking, alcohol, and drug use. She denies abdominal pain, nausea, vomiting, CP, light- headedness, fevers/chills. Past Med Surg Social Fam HX - Past Medical History Medical history: cancer, hyperlipidemia, hypertension Additional medical history: colon ca, Psychiatric history: no psych history - Past Surgical History Surgical History: colectomy Additional surgical history: CTR - Social History Smoking Status: Never smoker Smokeless Tobacco Status: No Alcohol use: none Drug use: none - Family History Father Living Status: Age at : 71 Cause of : heart trouble Hx Family Cardiac Disorders: Yes Hx Family Respiratory Disorders: No Hx Family Cancer: No Hx Family GI Disorders: No Hx Family Genitourinary Disorders: No Hx Family Endocrine Disorder: No Hx Family Musculoskeletal Disorders: No Hx Family Neuromuscular Disorders: No Hx Family Neurologic Disorders: No Hx Family HEENT Disorders: No Hx Family Autoimmune Disorders: No Hx Family Reproductive Disorders: No Hx Family Psychosocial Disorders: No Hx Family Medical Disorders: Yes - Constitutional Vitals: Temp Pulse Resp BP Pulse Ox 98.1 F 72 15 124/68 94 11/19/18 07:30 11/19/18 07:30 11/19/18 07:30 11/19/18 07:30 11/19/18 07:30 General appearance: Present: A&O X 3, no acute distress - Respiratory Additional comments: crackles in lung bases bilaterally - Cardiovascular Additional comments: Irregular rhythm, regular rate, no murmurs appreciated - GI/Abdominal GI/Abdominal exam: Present: normal bowel sounds, soft, no peritoneal signs. Absent: distended, tenderness - Psychiatric Psychiatric exam: Present: normal affect, normal mood - Skin Skin exam: Present: normal color Results - Labs CBC & Chem 7: 11/17/18 03:53 11/18/18 04:08 Labs: Last Result Calcium 8.8 mg/dL (8.6-10.3) 11/18/18 04:08 Iron 18 mcg/dL (50-170) L 11/16/18 05:12 % Saturation 4 % (15-50) L 11/16/18 05:12 Transferrin 288 mg/dL (203-362) 11/16/18 05:12 Ferritin 38 ng/mL (10-120) 11/16/18 05:12 Troponin I 0.09 ng/mL (< 0.04) H* 11/16/18 05:12 Stool Occult Blood Positive (Negative) A 11/18/18 21:15 Entire Visit Hgb 9.1 g/dL (11.5-15.4) L 11/17/18 03:53 Hct 28.8 % (35.3-44.9) L 11/17/18 03:53 PT 14.7 Seconds (9.4-12.1) H 11/16/18 05:12 Ferritin 38 ng/mL (10-120) 11/16/18 05:12 Total Bilirubin 0.9 mg/dL (0.3-1.0) 11/16/18 05:12 AST 26 Units/L (13-39) 11/16/18 05:12 ALT 13 Units/L (7-52) 11/16/18 05:12 - ABG ABG results: PT/INR, D-dimer PT 14.7 Seconds (9.4-12.1) H 11/16/18 05:12 Consult Discharge Plan - Plan Referrals: NONE,PCP [Primary Care Provider] - <Alma Gale - Last Filed: 11/19/18 22:35> Date of Encounter: 11/19/18 Time of Encounter: 18:10 - Time Spent With Patient Total time spent is greater than 50% in coordination of care (as documented) at patient's floor/unit and/or counseling patient: GI History of Present Illness - Data of Consult Requesting Physician: Guillermo Garcia - Consult Narrative History of present illness: Ms. Reyes is a 88 year old female - Constitutional Vitals: Temp Pulse Resp BP Pulse Ox 98.3 F 107 19 152/84 98 11/19/18 16:58 11/19/18 19:27 11/19/18 16:58 11/19/18 19:27 11/19/18 21:56 Results - Labs CBC & Chem 7: 11/17/18 03:53 11/18/18 04:08 Labs: Last Result Calcium 8.8 mg/dL (8.6-10.3) 11/18/18 04:08 Iron 18 mcg/dL (50-170) L 11/16/18 05:12 % Saturation 4 % (15-50) L 11/16/18 05:12 Transferrin 288 mg/dL (203-362) 11/16/18 05:12 Ferritin 38 ng/mL (10-120) 11/16/18 05:12 Troponin I 0.09 ng/mL (< 0.04) H* 11/16/18 05:12 Stool Occult Blood Positive (Negative) A 11/18/18 21:15 Entire Visit Hgb 9.1 g/dL (11.5-15.4) L 11/17/18 03:53 Hct 28.8 % (35.3-44.9) L 11/17/18 03:53 PT 14.7 Seconds (9.4-12.1) H 11/16/18 05:12 Ferritin 38 ng/mL (10-120) 11/16/18 05:12 Total Bilirubin 0.9 mg/dL (0.3-1.0) 11/16/18 05:12 AST 26 Units/L (13-39) 11/16/18 05:12 ALT 13 Units/L (7-52) 11/16/18 05:12 - ABG ABG results: PT/INR, D-dimer PT 14.7 Seconds (9.4-12.1) H 11/16/18 05:12 - Attending Attestation I examined this patient and my medical decision-making was reviewed with the Resident Physician. I agree with the documented findings, disposition and treatment plan as described except to the extent set forth below. Pt seen. No overt bleeding. O/E Abd non tander. A: pt with anemia Rec; EGD/colon to r/o GI causes
[2018-11-19] MEDS: Melatonin 3 MG TABLET PO SCH (21:30)
[2018-11-19] MEDS: Famotidine 20 MG TABLET PO SCH (21:31)
[2018-11-19] MEDS: Acetaminophen 325 MG TABLET PO PRN (21:33)
--- NOTE | 2018-11-19 23:02 | Internal Med Progress Note ---
Hospitalist Progress Note - Encounter Date of Encounter: 11/19/18 Time of Encounter: 15:00 - Subjective Interval History: SUBJECTIVE: The patient feels pretty good. The swelling of her legs has decreased significantly. It is not associated with shortness of breath. She is 94% on 2 L/min nasal cannula oxygen. Denies chest pain. Denies abdominal pain, nausea and vomiting. She makes good amounts of urine. OBJECTIVE: Skin: Free of rash and discoloration. ENMT: Oral/pharyngeal mucosa is normal in appearance. Eyes: Sclera is white. There is no discharge from eyes. Respiratory: Normal breath sounds; no crackles or wheezes. CV: Heart is regular; no gallop or murmur. GI: Abdomen is soft and not tender. There is no palpable mass or visceromegaly. Neuro: There is no focal deficits. ADDITIONAL DATA: I am ordering BMP/magnesium for tomorrow morning. ASSESSMENT AND PLAN: Acute on chronic diastolic heart failure with mitral regurgitation and atrial fibrillation. I will continue Lozol/Demadex. Fluid restriction of 3650-5751 mL per day. Atrial fibrillation. Rate controlled. To continue Toprol-XL. I asked her GI service to evaluate this patient. She will have upper and lower endoscopy tomorrow. Then, we will decide whether she qualifies for anticoagulation. Hypertension. Under control. To continue Toprol-XL. Acute hypokalemia. On supplemental potassium chloride. Potassium and magnesium will be checked tomorrow morning. Mildly elevated troponin. Level. Likely secondary to the factors mentioned above. DISPOSITION: The patient can be discharged home after upper/lower endoscopy. With or without anticoagulation. - Exam Vitals: Temp Pulse Resp BP Pulse Ox 97.5 F L 88 19 136/82 98 11/19/18 22:52 11/19/18 22:52 11/19/18 16:58 11/19/18 22:52 11/19/18 21:56 Exam: xx - Assessment and Plan (1) Acute on chronic diastolic heart failure Current Visit: Yes Status: Acute (2) Mitral regurgitation Current Visit: Yes Status: Chronic (3) Afib Current Visit: Yes Status: Acute (4) HTN (hypertension) Current Visit: No Status: Chronic (5) Anemia Current Visit: Yes Status: Chronic (6) Acute hypokalemia Current Visit: Yes Status: Acute (7) Elevated troponin Current Visit: Yes Status: Acute - Time Spent with Patient Total time spent is greater than 50% in coordination of care (as documented) at patient's floor/unit and/or counseling patient: 25 - 35 minutes Plan of Care Discussed with: patient Internal Medicine: Result - Labs CBC & Chem 7: 11/17/18 03:53 11/18/18 04:08 - ABG Interpretation ABG results: PT/INR, D-dimer PT 14.7 Seconds (9.4-12.1) H 11/16/18 05:12 Consult Discharge Plan - Plan Referrals: NONE,PCP [Primary Care Provider] - __ (3) Afib Qualifiers: Atrial fibrillation type: chronic Qualified Code(s): I48.2 - Chronic atrial fibrillation (4) HTN (hypertension) Qualifiers: Hypertension type: essential hypertension Qualified Code(s): I10 - Essential (primary) hypertension (5) Anemia Qualifiers: Anemia type: iron deficiency Qualified Code(s): D50.8 - Other iron deficiency anemias
--- NOTE | 2018-11-19 23:16 | Anesthesia Evaluation PreOp ---
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 INSPECTOR History: Denies Any Significant HX Other Medical History: Other (anemia, colon ca s/p colectomy) Anesthesia History: No Prior Anesthetic Complications, Past Anesthesia (colectomy, CTR, skin ca) Alcohol Use: none Drug use: none Medications and Allergies Aspirin [Lo-Dose Aspirin EC] 81 mg PO DAILY 05/10/17 [History] Atorvastatin Calcium [Lipitor] 20 mg PO HS 05/10/17 [History] Cranberry Conc/C/Bacill Coag [Cranberry Tablet] 1 each PO DAILY 05/10/17 [History] Ergocalciferol (VITAMIN D2) [Vitamin D] 400 unit PO DAILY 05/10/17 [History] Furosemide [Lasix] 80 mg PO DAILY 05/10/17 [History] Melatonin [Melatin] 3 mg PO HS 05/10/17 [History] Multivit-Min/FA/Lycopen/Lutein [Centrum Silver Tablet] 1 each PO DAILY 05/10/17 [History] Oxybutynin [Ditropan] 5 mg PO HS 05/10/17 [History] Amlodipine Besylate 5 mg PO DAILY 11/15/18 [History] Metoprolol Succinate [Toprol Xl] 100 mg PO DAILY 11/15/18 [History] Ranitidine HCl [Zantac 75] 75 mg PO DAILY 11/15/18 [History] Sulfamethoxazole/Trimeth DS [Bactrim Ds] 1 tab PO BID 11/15/18 [History] Allergy/AdvReac Type Severity Reaction Status Date / Time No Known Allergies Allergy Verified 11/15/18 21:48 - Meds/Allergy Pre-op Review Medications Reviewed: Yes Allergies Reviewed: Yes Beta Blockers on Current Med List: Yes If Beta Blockers taken, Date/Time (Last Dose taken): 912am 11/19/18 Anesthesia Results - Labs 11/17/18 03:53 11/18/18 04:08 - Imaging EKG: report reviewed (ATRIAL FIBRILLATION LOW QRS VOLTAGE IN EXTREMITY LEADS POSSIBLE ANTERIOR MYOCARDIAL INFARCTION, PROBABLY OLD ABNORMAL RHYTHM ECG Electronically Signed On 11-16-2018 12:33:44 EST by Chucky Day) Additional studies: 11/16/18 Impressions: LVEF 65-70%. Normal LV chamber size and systolic function. Mild concentric left ventricular hypertrophy. Indeterminate diastolic function. Normal right ventricular structure and function. Severely dilated left atrium. Mildly dilated right atrium. Moderate mitral regurgitation. Moderate tricuspid regurgitation. Moderate pulmonary hypertension. Small pericardial effusion without echocardiographic evidence of tamponade. Anesthesia Exam Vital Signs/O2 Sat, Most Current Temp Pulse Resp BP Pulse Ox 97.5 F L 88 19 136/82 98 11/19/18 22:52 11/19/18 22:52 11/19/18 16:58 11/19/18 22:52 11/19/18 21:56 Weight: 75kg - HEENT Pupil (Motor): Pupils equal, EOMI Mallampati: II Denture Type: Upper: Complete Oral Opening: Greater than 3 - BOTTLE AND GLASS INSPECTOR LOC: Oriented BOTTLE AND GLASS INSPECTOR Motor: Normal RUE, Normal LUE, Normal RLE, Normal LLE, Normal Face BOTTLE AND GLASS INSPECTOR Sensory: Normal: RUE, LUE, RLE, LLE, Face - Cardiac Rhythm: Irregular - Pulmonary Breath Sounds: bilateral Clear Respiratory Effort: Symmetrical Anesthesia Assess/Plan ASA Score: 3 Level of consciousness: Cooperative Anesthetic Plan: General, MAC Monitoring Plan: Standard Monitors Recovery Plan: PACU
[2018-11-20] MEDS: *HR* Heparin 5,000 UNIT/ML VIAL SQ SCH ×2 (06:58→17:09)
[2018-11-20] MEDS: Magnesium Oxide 400 MG TABLET PO SCH (09:41)
[2018-11-20] MEDS: Aspirin Enteric Coated 81 MG Tablet PO SCH (09:41)
[2018-11-20] MEDS: amLODIPine 5 MG TABLET PO SCH (09:42)
[2018-11-20] MEDS: Torsemide 20 MG TABLET PO SCH (09:42)
[2018-11-20] MEDS: Cholecalciferol (D-3) 1,000 UNIT TABLET PO SCH (09:43)
[2018-11-20] MEDS: Multivit/Ca/Min/Fe/FA 1 TAB TABLET PO SCH (09:43)
[2018-11-20] MEDS: Metoprolol XL (24 HR) Succ 50 MG TAB.ER.24H PO SCH (09:43)
[2018-11-20 12:41] LABS: Basophils % 0.4 %; Eosinophils # 0.2 K/mcL (0.0-0.6); Eosinophils % 2.5 %; Hematocrit 33.5 % (35.3-44.9); Hemoglobin 10.5 g/dL (11.5-15.4); Immature Granulocytes % 0.3 % (0-4); Lymphocytes # 2.3 K/mcL (0.6-4.6); Lymphocytes % 29.7 %; Mean Corpuscular HGB Conc 31.3 g/dL (31.6-35.5); Mean Corpuscular Hemoglobin 27.4 pg (28.0-33.3); Mean Corpuscular Volume 87.5 fL (83.0-100.0); Mean Platelet Volume 9.3 fL (9.4-12.4); Monocytes # 0.9 K/mcL (0.0-1.3); Monocytes % 11.7 %; Neutrophils # 4.3 K/mcL (1.6-8.9); Platelet Count 258 K/mcL (140-400); Red Blood Count 3.83 M/mcL (3.82-4.97); Red Cell Distribution Width 15.1 % (11.5-14.5); Segmented Neutrophils % 55.4 %
[2018-11-20] MEDS ORDERED: 0.9 % Sodium Chloride 1,000 ML IVC SCH (12:45)
[2018-11-20 12:49] LABS: INR 1.1; Prothrombin Time 12.7 Seconds (9.4-12.1)
[2018-11-20] MEDS ORDERED: Propofol 500 MG/50 ML INFUS..BTL ONE (12:49)
[2018-11-20 13:01] LABS: Calcium 9.3 mg/dL (8.6-10.3); Magnesium 2.2 mg/dL (1.6-2.6); Phosphorous 3.1 mg/dL (2.7-4.5); Potassium 3.6 mEq/L (3.5-5.1)
[2018-11-20 13:56] LABS: Carcinoembryonic Antigen 16.5 ng/mL (Less than 5.0)
--- NOTE | 2018-11-20 14:24 | Event Note ---
Date of Encounter: 11/20/18 Time of Encounter: 14:00 Patient is s/p EGD and colonoscopy for rule out GI bleed. Patient was found to have a non-bleeding tumor at hepatic flexure. She has a history of colon cancer and is s/p partial colectomy. CEA ordered. Was going to order CT ab/pelvis and chest with contrast, but patient's creatinine was elevated at 1.9 on admission and 1.37 today. Oncology was consulted for further recommendations and staging. Other findings include inflammation of gastric fundus, melanosis of lower esophagus, and internal hemorrhoids.
--- NOTE | 2018-11-20 15:51 | Internal Med Progress Note ---
Hospitalist Progress Note - Encounter Date of Encounter: 11/20/18 Time of Encounter: 15:00 - Subjective Interval History: 88 y/o female w/ PMHx of HTN, HLD, Diastolic CHF, Atrial Fibrillation not on A/C for unknown reasons ? GI bleed in past admitted w/ Acute on Chronci CHF, Anemia and Hypokalemia. Pt seen and examine at bedside. Pt feels well, denies cp, SOB or dizziness - Exam Vitals: Temp Pulse Resp BP Pulse Ox 98.2 F 85 18 114/76 96 11/20/18 12:36 11/20/18 12:36 11/20/18 12:36 11/20/18 12:36 11/20/18 12:36 Exam: General - Pt laying in bed, NAD HEENT - NC/AT. PERRLA, MMM Neck - supple, no LN Lungs - CTA B/L CVS - RRR, nl S1, S2 Abd - soft NT/ND, BS+ Ext - pedal edema Neuro - no focal deficits - Summary of Assessment and Plan Summary of Assessment and Plan: 88 y/o female w/ PMHx of HTN, HLD, Diastolic CHF, Atrial Fibrillation not on A/C for unknown reasons ? GI bleed in past admitted w/ Acute on Chronci CHF, Anemia and Hypokalemia Acute on chronic CHF - Echo diastolic HF. EF 65-70%. indetermidate diastlic function. severely dialated lt atrium, mod Pul HTN. - completed course of IV lasix, now on PO torsemide - Mild troponemia due to demand - Cardiology recommendation appreciated. No intervention. - Cardiology signed off. Atrial fibrillation - CHADSVASC score of 5 - c/w metoprolol for rate control - TSH normal - echocardiogram as above - Cardiology recommended GI workup before starting AC. Anemia - stool occult positive - EGD/Colonoscopy today - cont to monitor - keep active T&S CKD, HypoK - Unknown baseline - improved - K repleted, now stable. HTN/HLD - Continue home medication. DVT prophylaxis - SCDs - Time Spent with Patient Total time spent is greater than 50% in coordination of care (as documented) at patient's floor/unit and/or counseling patient: Internal Medicine: Result - Labs CBC & Chem 7: 11/20/18 12:01 11/20/18 12:01 Labs: Short CBC 11/20/18 Range/Units 12:01 WBC 7.8 (4.3-11.1) K/mcL Hgb 10.5 L (11.5-15.4) g/dL Hct 33.5 L (35.3-44.9) % Plt Count 258 (140-400) K/mcL Neutrophils # 4.3 (1.6-8.9) K/mcL BMP 11/20/18 12:01 Sodium 137 Potassium 3.6 Chloride 94 L Carbon Dioxide 36 H BUN 15 Creatinine 1.37 H Glucose 95 Calcium 9.3 - ABG Interpretation ABG results: PT/INR, D-dimer PT 12.7 Seconds (9.4-12.1) H 11/20/18 12:01 Consult Discharge Plan - Plan Referrals: NONE,PCP [Primary Care Provider] -
--- NOTE | 2018-11-20 16:26 | Oncology Inp Consult Note ---
<Dashawn Diana S - Last Filed: 11/20/18 18:09> Date of Encounter: 11/20/18 - Data of Consult Requesting Physician: Beronica Russo Primary Care Provider: PCP NONE Medications and Allergies Aspirin [Lo-Dose Aspirin EC] 81 mg PO DAILY 05/10/17 [History] Atorvastatin Calcium [Lipitor] 20 mg PO HS 05/10/17 [History] Cranberry Conc/C/Bacill Coag [Cranberry Tablet] 1 each PO DAILY 05/10/17 [History] Ergocalciferol (VITAMIN D2) [Vitamin D] 400 unit PO DAILY 05/10/17 [History] Furosemide [Lasix] 80 mg PO DAILY 05/10/17 [History] Melatonin [Melatin] 3 mg PO HS 05/10/17 [History] Multivit-Min/FA/Lycopen/Lutein [Centrum Silver Tablet] 1 each PO DAILY 05/10/17 [History] Oxybutynin [Ditropan] 5 mg PO HS 05/10/17 [History] Amlodipine Besylate 5 mg PO DAILY 11/15/18 [History] Metoprolol Succinate [Toprol Xl] 100 mg PO DAILY 11/15/18 [History] Ranitidine HCl [Zantac 75] 75 mg PO DAILY 11/15/18 [History] Sulfamethoxazole/Trimeth DS [Bactrim Ds] 1 tab PO BID 11/15/18 [History] Allergy/AdvReac Type Severity Reaction Status Date / Time No Known Allergies Allergy Verified 11/15/18 21:48 Consult Discharge Plan - Plan Referrals: NONE,PCP [Primary Care Provider] - Inpatient Charges Provider: Dr. Andrew Diana Consult - Inpatient: [id number] - Attending Attestation I examined this patient and my medical decision-making was reviewed with the Advanced Practice Nurse. I agree with the documented findings, disposition and treatment plan as described except to the extent set forth below. 1. New diagnosis right colon/hepatic flexure infiltrating lesion nonobstructing. Concerning for right colon cancer. We will do CT chest, abdomen and pelvis without contrast for staging CEA elevated at 17. Surgical consult 2. Patient was admitted for cardiac reasons. Cardiology consult noted. Has history of CHF BNP around 500. Also atrial fibrillation with Dheeraj score 5. Currently not on anticoagulation. If cardiology recommends anticoagulation should be okay to start heparin and watch her closely. Echocardiogram 11/16/2018 showed ejection fraction 65-70% and moderate mitral regurgitation and significant and left atrial dilatation. 3. Anemia hemoglobin around 10.5 significant iron deficiency. We will proceed with IV Venofer 300 mg 1 dose. Also check her B12 and folate 4. Remote history of colon cancer 1995. She had surgical resection and adjuvant chemotherapy. I do not have that records to review <Araceli Graves L - Last Filed: 11/21/18 08:44> Date of Encounter: 11/20/18 Time of Encounter: 16:24 Assessment and Plan (1) Mass of hepatic flexure of colon Status: Acute Assessment and plan: EGD was performed today which revealed mucosal congestion which was biopsied. Colonoscopy today revealed an infiltrated, polypoid and ulcerated nonobstructing large mass at the hepatic flexure, the mass was non-circumferential and about 4 cm in length, no bleeding was present. Biopsy obtained. CEA elevated 16.5 No prior imaging has been obtained secondary to ARSLAN present on admission Of note patient has a history of colon cancer treated in 1995 status post hemicolectomy at [facility] followed by 6 weeks of chemotherapy, we will obtain these records Plan: S/P colonoscopy today with pathology pending Need further staging workup, no imaging has been obtained secondary to ARSLAN, CT C/A/P without contrast ordered, can consider PET scan as outpatient if needed Consider surgical evaluation while inpatient (2) Anemia Status: Chronic Assessment and plan: Likely secondary to blood loss from colon mass Hgb 10.5 Iron 18,4% saturation, Ferritin 38 Plan: Venofer x1 Check further nutritional studies with B12 and folate Qualifiers: Anemia type: iron deficiency Qualified Code(s): D50.8 - Other iron deficiency anemias (3) Afib Status: Acute Assessment and plan: Cardiology consult noted, patient with ChadsVasc score of 5, considered high risk and anticoagulation recommended On metoprolol for rate control In preparation for potential surgical intervention with surgical evaluation pending, oncology would be ok with heparin gtt should cardiology recommend anticoagulation be initiated She will need to be closely monitored for any s/s bleeding Qualifiers: Atrial fibrillation type: chronic Qualified Code(s): I48.2 - Chronic atrial fibrillation - Data of Consult Patient: new to practice Consult date: 11/20/18 Requesting Physician: Beronica Russo Primary Care Provider: PCP NONE - Consult Narrative Reason for consult: Hepatic flexure mass History of present illness: Ms. Reyes is an 88 year old female with past medical history significant for CHF, hypertension, hyperlipidemia. She initially presented to [facility] for worsening shortness of breath and admitted to [facility] for CHF exacerbation and new finding of atrial fibrillation (conflicting evidence on whether this is new for patient, patient has not been previously anticoagulated in past). Cardiology was consulted and recommended anticoagulation for new onset A. fib with ChadsVac score 5, however, first recommended consultation with gastroenterology given patient's reported history of hematochezia/melena over the several weeks, positive FOBT and presentation with anemia. GI was consulted, EGD was performed today which revealed mucosal congestion which was b iopsied. Colonoscopy today revealed an infiltrated, polypoid and ulcerated nonobstructing large mass at the hepatic flexure, the mass was non- circumferential and about 4 cm in length, no bleeding was present. Biopsy obtained. The scope was advanced to the ileocolonic anastomosis. Oncology is consulted for further recommendations. Patient has a history of colon cancer treated in 1995 status post hemicolectomy at [facility] followed by 6 weeks of chemotherapy according to patient, she is not able to give further details and we will need to obtain medical records Past Med Surg Social Fam HX - Past Medical History Medical history: cancer, hyperlipidemia, hypertension Additional medical history: colon ca, Psychiatric history: no psych history - Past Surgical History Surgical History: colectomy Additional surgical history: CTR - Social History Smoking Status: Never smoker Smokeless Tobacco Status: No Alcohol use: none Drug use: none - Family History Father Living Status: Age at : 71 Cause of : heart trouble Hx Family Cardiac Disorders: Yes Hx Family Respiratory Disorders: No Hx Family Cancer: No Hx Family GI Disorders: No Hx Family Genitourinary Disorders: No Hx Family Endocrine Disorder: No Hx Family Musculoskeletal Disorders: No Hx Family Neuromuscular Disorders: No Hx Family Neurologic Disorders: No Hx Family HEENT Disorders: No Hx Family Autoimmune Disorders: No Hx Family Reproductive Disorders: No Hx Family Psychosocial Disorders: No Hx Family Medical Disorders: Yes Constitutional: Present: anorexia, fatigue, weakness, weight loss. Absent: chills, fever(s), night sweats Eyes: Absent: change in vision Nose, mouth and throat: Absent: dysphagia, odynophagia Cardiovascular: Present: edema, irregular heart rhythm. Absent: chest pain, palpitations Respiratory: Present: dyspnea. Absent: cough, hemoptysis Gastrointestinal: Present: hematochezia, melena, nausea. Absent: abdominal pain, constipation, diarrhea, hematemesis, vomiting Genitourinary: Absent: dysuria, hematuria Musculoskeletal: Present: muscle weakness Integumentary: Absent: rash, wounds Neurological: Absent: confusion, focal weakness, frequent falls Psychiatric: Present: as per HPI Hematologic/Lymphatic: Present: as per HPI Oncology - Exam - Constitutional General appearance: cooperative, no acute distress, no febrile - Head Head exam: Present: atraumatic - ENT ENT exam: Present: mucous membranes moist, normal oropharynx - Respiratory Respiratory exam: Present: CTAB. Absent: respiratory distress - Cardiovascular Cardiovascular exam: Present: irregular rhythm - GI/Abdominal GI/Abdominal exam: Present: normal bowel sounds, soft. Absent: tenderness Additional comments: mildly distended, ventral hernia noted - Extremities Exam Extremities exam: Absent: calf tenderness Additional comments: chronic skin changes noted to BLE, 1+ pitting edema - Neurological Exam Neurological exam: Present: alert, oriented X3, no focal deficits, strengths equal and symetr throughout - Psychiatric Psychiatric exam: Present: normal affect, normal mood - Skin Skin exam: Present: dry, intact, normal color, warm
[2018-11-20] MEDS ORDERED: Iron Sucrose Complex 250 MG in 0.9 % Sodium Chloride 250 ML IVPB ONE (20:00)
[2018-11-20] MEDS: Famotidine 20 MG TABLET PO SCH (20:21)
[2018-11-20] MEDS: Melatonin 3 MG TABLET PO SCH (20:22)
[2018-11-20] MEDS: Acetaminophen 325 MG TABLET PO PRN (21:58)
[2018-11-21] MEDS: *HR* Heparin 5,000 UNIT/ML VIAL SQ SCH ×2 (06:40→20:13)
[2018-11-21] MEDS: Aspirin Enteric Coated 81 MG Tablet PO SCH (08:15)
[2018-11-21] MEDS: Torsemide 20 MG TABLET PO SCH (08:15)
[2018-11-21] MEDS: amLODIPine 5 MG TABLET PO SCH (08:16)
[2018-11-21] MEDS: Cholecalciferol (D-3) 1,000 UNIT TABLET PO SCH (08:16)
[2018-11-21] MEDS: Metoprolol XL (24 HR) Succ 50 MG TAB.ER.24H PO SCH (08:16)
[2018-11-21] MEDS: Multivit/Ca/Min/Fe/FA 1 TAB TABLET PO SCH (08:16)
[2018-11-21] MEDS: Magnesium Oxide 400 MG TABLET PO SCH (08:16)
[2018-11-21 08:44] LABS: Basophils % 0.5 %; Eosinophils # 0.2 K/mcL (0.0-0.6); Eosinophils % 2.3 %; Hematocrit 33.3 % (35.3-44.9); Hemoglobin 10.4 g/dL (11.5-15.4); Immature Granulocytes % 0.1 % (0-4); Lymphocytes # 2.7 K/mcL (0.6-4.6); Lymphocytes % 32.7 %; Mean Corpuscular HGB Conc 31.2 g/dL (31.6-35.5); Mean Corpuscular Hemoglobin 27.3 pg (28.0-33.3); Mean Corpuscular Volume 87.4 fL (83.0-100.0); Mean Platelet Volume 9.3 fL (9.4-12.4); Monocytes % 12.4 %; Neutrophils # 4.2 K/mcL (1.6-8.9); Platelet Count 270 K/mcL (140-400); Red Blood Count 3.81 M/mcL (3.82-4.97); Red Cell Distribution Width 15.1 % (11.5-14.5)
[2018-11-21 09:06] LABS: Calcium 9.3 mg/dL (8.6-10.3); Magnesium 2.2 mg/dL (1.6-2.6); Phosphorous 2.8 mg/dL (2.7-4.5); Potassium 3.9 mEq/L (3.5-5.1)
[2018-11-21 09:28] LABS: Vitamin B12 455 pg/mL (250-1100)
[2018-11-21 10:12] LABS: Folate > 22.3 ng/mL (3.0-16.0)
--- NOTE | 2018-11-21 10:39 | Oncology Inp Progress Note ---
<Yary Gordillo - Last Filed: 11/21/18 10:49> Date of Encounter: 11/21/18 Time of Encounter: 10:37 (1) Mass of hepatic flexure of colon Current Visit: Yes Status: Acute Assessment and plan: EGD 11/20 revealed mucosal congestion which was biopsied. Colonoscopy revealed an infiltrated, polypoid and ulcerated nonobstructing large mass at the hepatic flexure, the mass was non-circumferential and about 4 cm in length, no bleeding was present. Biopsy obtained. CEA elevated 16.5 Chest/abdomen/pelvis CT shows some mural irregularity just distal to the site of anastomosis of colon in mid abdomen; negative for lymphadenopathy Of note patient has a history of colon cancer treated in 1995 status post hemicolectomy at [facility] followed by 6 weeks of chemotherapy, we will obtain these records Plan: colonoscopy pathology pending consider PET scan as outpatient if needed surgery consulted, appreciate recommendations (2) Anemia Current Visit: Yes Status: Chronic Assessment and plan: Likely secondary to blood loss from colon mass Hgb 10.4 Iron 18,4% saturation, Ferritin 38 Received Venofer x1 B12 WNL, folate high Qualifiers: Anemia type: iron deficiency Qualified Code(s): D50.8 - Other iron deficiency anemias (3) Afib Current Visit: Yes Status: Chronic Assessment and plan: Cardiology consulted, appreciate recommendations --ChadsVasc 5 metoprolol for rate control In preparation for potential surgical intervention with surgical evaluation pending, oncology would be ok with heparin gtt should cardiology recommend anticoagulation be initiated with close monitoring for any s/s bleeding Qualifiers: Atrial fibrillation type: chronic Qualified Code(s): I48.2 - Chronic atrial fibrillation Oncology: Subj Interval history: Patient states she is feeling fine, she is asking if she can go home. She is also asking about getting a bath and washing her hair (aide was in room at the time of visit preparing material for a bath). - Constitutional Exam: General: alert, no acute distress HEENT: atraumatic, normocephalic, external ears normal, PEERLA EOMI, neck supple, trachea midline Heart: RRR Lungs: CTAB Abdomen: soft, nontender, bowel sounds present Extremities: no edema Skin: warm, dry, intact Neuro: A&Ox3, no focal deficits Psych: normal affect Oncology: Obj Data - Labs CBC & Chem 7: 01/30/19 08:15 11/21/18 08:15 Consult Discharge Plan - Plan Referrals: NONE,PCP [Primary Care Provider] - Inpatient Charges Provider: Dr. Andrew Diana <[email or web address] - Last Filed: 11/21/18 17:55> Date of Encounter: 11/21/18 Oncology: Obj Data - Labs CBC & Chem 7: 11/21/18 08:15 11/21/18 08:15 Inpatient Charges Provider: Dr. Andrew Diana Follow up - Inpatient: [id number] - Attending Attestation I examined this patient and my medical decision-making was reviewed with Dr. Yary gordillo. I agree with the documented findings, disposition and treatment plan as described except to the extent set forth below. 1. Mass in the hepatic flexure. Reviewed CAT scans. This is at the anastomotic site in she had previous right hemicolectomy. On further discussion this was in 1995. She was started on adjuvant chemotherapy but she quit immedia tely after the first dose or so. CEA elevated at 17. This is highly suspicious for colonic adenocarcinoma. Noncontrast CT chest abdomen and pelvis no evidence of metastasis. Appreciate Dr. disla's input. Patient not interested at surgery at this time. Patient and family understand untreated cancer can continue to progress and can lead to metastatic disease. Told her she can still think about it and make a decision as an outpatient. I will see her in the office in 2 weeks or so 2. Long-standing atrial fibrillation with left atrial dilatation and mitral regurgitation. She was not anticoagulated in the past.. Continue aspirin 81 mg a day. She understand her risk of bleeding goes up with anticoagulation or even with antiplatelet agents. 3. Iron deficiency anemia post IV Venofer . Hemoglobin around 10.4. B12 folate and TSH normal Patient and family had several questions and all the questions answered.
--- NOTE | 2018-11-21 15:08 | Internal Med Progress Note ---
Hospitalist Progress Note - Encounter Date of Encounter: 11/21/18 Time of Encounter: 15:00 - Subjective Interval History: 88 y/o female w/ PMHx of HTN, HLD, Diastolic CHF, Atrial Fibrillation not on A/C for unknown reasons ? GI bleed in past admitted w/ Acute on Chronic CHF, Anemia and Hypokalemia. Pt seen and examine at bedside. Pt feels well, denies cp, SOB or dizziness Pt reports LE edema seems unchanged even with diuretics. - Exam Vitals: Temp Pulse Resp BP Pulse Ox 97.6 F 101 18 110/76 93 11/21/18 11:14 11/21/18 11:14 11/21/18 11:14 11/21/18 11:14 11/21/18 11:14 Exam: General - Pt laying in bed, NAD HEENT - NC/AT. PERRLA, MMM Neck - supple, no LN Lungs - bibasilar rales CVS - RRR, nl S1, S2 Abd - soft NT/ND, BS+ Ext - 3+ pitting edema Neuro - no focal deficits - Summary of Assessment and Plan Summary of Assessment and Plan: 88 y/o female w/ PMHx of HTN, HLD, Diastolic CHF, Atrial Fibrillation not on A/C for unknown reasons ? GI bleed in past admitted w/ Acute on Chronic CHF, An emia and Hypokalemia Acute on chronic CHF - Echo diastolic HF. EF 65-70%. indetermidate diastlic function. severely dilated lt atrium, mod Pul HTN. Small pericardial effusion - completed course of IV lasix, now on PO torsemide; LE still signficantly edematous per pt, likely due to venous insufficiency. - Mild troponemia due to demand - Cardiology recommendation appreciated. No intervention. - Cardiology signed off. Colon Mass at Hepatic flecture - Oncology following - f/u biopsy - f/u surgery consult Atrial fibrillation - CHADSVASC score of 5 - c/w metoprolol for rate control - TSH normal - echocardiogram as above - Cardiology recommended GI workup before starting AC; spoke w/ Cardiology, no A/C given mass, pt already bled, although no active bleeding A/C puts patient at much higher risk for bleeding again - c/w just ASA Anemia - Likely from blood loss due mass - stool occult positive - EGD/Colonoscopy - mucosal congestion on EGD, Colonoscopy w/ an infiltrated, 4cm polypoid ulcerated nonobstructive large mass at hepatic flexture, no bleeding - cont to monitor - keep active T&S CKD, HypoK - Unknown baseline - improved - K repleted, now stable. HTN/HLD - Continue home medication. DVT prophylaxis - SCDs Explained to pt and family in detail risks of A/C given mass. Also relayed that I spoke w/ Cardiology [employer] who also did not recommend A/C in this setting. Family at bedside also concerned about fluid around heart which I stated is small and just needs regular monitoring however family still requesting to see Cardiology. - Time Spent with Patient Total time spent is greater than 50% in coordination of care (as documented) at patient's floor/unit and/or counseling patient: Plan of Care Discussed with: patient (and family) Internal Medicine: Result - Labs CBC & Chem 7: 11/21/18 08:15 11/21/18 08:15 Labs: Short CBC 11/21/18 Range/Units 08:15 WBC 8.1 (4.3-11.1) K/mcL Hgb 10.4 L (11.5-15.4) g/dL Hct 33.3 L (35.3-44.9) % Plt Count 270 (140-400) K/mcL Neutrophils # 4.2 (1.6-8.9) K/mcL BMP 11/21/18 08:15 Sodium 138 Potassium 3.9 Chloride 97 L Carbon Dioxide 32 H BUN 14 Creatinine 1.40 H Glucose 105 Calcium 9.3 - ABG Interpretation ABG results: PT/INR, D-dimer PT 12.7 Seconds (9.4-12.1) H 11/20/18 12:01 - Impressions Impressions Abdomen/Pelvis CT 11/20/18 18:05 IMPRESSION: 1. Some mural irregularity just distal to the site of anastomosis of colon in the mid abdomen. Correlation with endoscopy is advised to exclude recurrent disease. 2. No abdominopelvic lymphadenopathy. 3. No lymphadenopathy in the chest. 4. No dominant pulmonary nodule or mass. 5. Possible anterior abdominal wall open wound. Please correlate with physical exam. Immediately deep to this is a fat containing ventral hernia. D/ / 11/20/2018 19:17:26 Arnie Munoz / toni Interpreting Provider: Arnie Munoz Chest CT 11/20/18 18:05 IMPRESSION: 1. Some mural irregularity just distal to the site of anastomosis of colon in the mid abdomen. Correlation with endoscopy is advised to exclude recurrent disease. 2. No abdominopelvic lymphadenopathy. 3. No lymphadenopathy in the chest. 4. No dominant pulmonary nodule or mass. 5. Possible anterior abdominal wall open wound. Please correlate with physical exam. Immediately deep to this is a fat containing ventral hernia. D/ / 11/20/2018 19:17:26 Arnie muñoz Interpreting Provider: Arnie Munoz Consult Discharge Plan - Plan Referrals: NONE,PCP [Primary Care Provider] -
--- NOTE | 2018-11-21 16:07 | General Surgery Consult Note ---
Date of Encounter: 11/21/18 Time of Encounter: 15:00 History of Present Illness Consult date: 11/21/18 Requesting physician: Araceli Graves History of present illness: 88-year-old, referred for further surgical evaluation regarding hematochezia, anemia and evidence of recurrent tumor at a ileocolic anastomosis. The patient was apparently transferred from [facility] after presenting there with increased shortness of breath. Patient was found to have new onset atrial fibrillation. Rate was controlled medically, anticoagulation was not initiated. The patient returns to [facility] with worsening leg swelling and increasing shortness of breath. Labs demonstrated an elevated troponin and telemetry demonstrated recurrent atrial fibrillation. The patient was transferred to [facility] for further cardiac evaluation and intervention. This transfer occurred approximately 11/15/18. Since the patient's transfer she apparently has experienced continued hematochezia, hemogram falling from 9.4/29.9-9.1 and 28.8. There was also question of melena. EGD and colonoscopy were completed 11/20/18., by Dr Gale. Upper endoscopy was notable for mild gastritis. Abscesses are still pending. Colonoscopy demonstrated an infiltrative, polypoid, Ulcerated nonobstructing mass "at the hepatic flexure. The photographs demonstrate this mass to be essentially at the ileocolic anastomosis. The patient has a history of colon cancer treated at [facility], [place], [place], in 1995. That ends of a ileocolic anastomosis it is clear that the patient underwent a right colectomy. The colonoscopy demonstrates recurrent tumor, which whether benign or malignant appears to be the likely source of the patient's described hematochezia and anemia. Medical history: CHF, hypertension, hyperlipidemia and recent diagnosis of atrial fibrillation Surgical history: Right colectomy; carpal tunnel release Allergies no known drug allergies Medications: Amlodipine 5 mg by mouth daily Aspirin 81 mg by mouth daily Atorvastatin 20 mg by mouth daily at bedtime Cranberry tablet 1 by mouth daily Ergocalciferol (vitamin D2) 400 units by mouth daily Furosemide 40 mg by mouth 3 times a day Magnesium 500 mg by mouth daily Melatonin 3 mg by mouth daily at bedtime Metoprolol 100 mg by mouth daily Multivitamins with minerals, folic acid, lycopene, Lutein - one by mouth daily Oxybutynin 5 mg by mouth daily Ranitidine 150 mg by mouth twice a day Social history: Patient has never smoked, she denies any alcohol or illicit drug consumption. The patient is , her lives in 89 years of age Physical examination: Elderly, appropriate woman seated at bedside. The patient appears to be in no acute distress. Skin is warm, without obvious jaundice Lungs: Bibasilar scattered rales more pronounced on the right than the left Cardiac: Irregular rate without detected murmurs Abdomen: Soft, nontender. Surgical scarring consistent with a previous right colectomy is evident. Bowel sounds were hypoactive. There were no detected intra-abdominal masses. No rebound. Extremities: 4+ pitting edema from the knees distally CT abdomen/pelvis: reviewed with [facility]. Abdominal findings include 2 fat-containing abdominal wall hernias, one possibly with an associated skin defect there were no colonic abnormalities, wall thickening or evident metastatic disease. 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 Biopsies of this mass are pending. Regardless of whether this mass is malignant or benign, resection is necessary as this is the likely source of the patient's hematochezia and anemia. This was discussed in great detail with the patient and her family in attendance (daughter and granddaughter) The patient has newly diagnosed atrial fibrillation for which anticoagulation may be a consideration. This is contraindicated in the face of a colonic mass with lower GI hemorrhage. The patient does not wish to consider surgery. The family and the patient will discuss this further. The surgical risks include: Hemorrhage, infection, intra-abdominal abscess, injury to adjacent structures, respiratory failure requiring prolonged mechanical ventilation; cardiac dysrhythmia; MA; and stroke. The stress of surgery could certainly worsen the patient's atrial fibrillation as well as her CHF. These factors were all discussed in quite a bit of detail in case the patient should wish to consider surgical intervention. Without surgery, the patient is likely to continue to experience lower GI hemorrhage with worsening anemia. I have also discussed this with the hospitalist service. I have informed the family that I will return tomorrow to discuss surgical o ptions further Past Med Surg Social Fam HX - Past Medical History Medical history: cancer, hyperlipidemia, hypertension Additional medical history: colon ca, Psychiatric history: no psych history - Past Surgical History Surgical History: colectomy Additional surgical history: CTR - Social History Smoking Status: Never smoker Smokeless Tobacco Status: No Alcohol use: none Drug use: none - Family History Father Living Status: Age at : 71 Cause of : heart trouble Hx Family Cardiac Disorders: Yes Hx Family Respiratory Disorders: No Hx Family Cancer: No Hx Family GI Disorders: No Hx Family Genitourinary Disorders: No Hx Family Endocrine Disorder: No Hx Family Musculoskeletal Disorders: No Hx Family Neuromuscular Disorders: No Hx Family Neurologic Disorders: No Hx Family HEENT Disorders: No Hx Family Autoimmune Disorders: No Hx Family Reproductive Disorders: No Hx Family Psychosocial Disorders: No Hx Family Medical Disorders: Yes Medications and Allergies Aspirin [Lo-Dose Aspirin EC] 81 mg PO DAILY 05/10/17 [History] Atorvastatin Calcium [Lipitor] 20 mg PO HS 05/10/17 [History] Cranberry Conc/C/Bacill Coag [Cranberry Tablet] 1 each PO DAILY 05/10/17 [History] Ergocalciferol (VITAMIN D2) [Vitamin D] 400 unit PO DAILY 05/10/17 [History] Furosemide [Lasix] 80 mg PO DAILY 05/10/17 [History] Melatonin [Melatin] 3 mg PO HS 05/10/17 [History] Multivit-Min/FA/Lycopen/Lutein [Centrum Silver Tablet] 1 each PO DAILY 05/10/17 [History] Oxybutynin [Ditropan] 5 mg PO HS 05/10/17 [History] Amlodipine Besylate 5 mg PO DAILY 11/15/18 [History] Metoprolol Succinate [Toprol Xl] 100 mg PO DAILY 11/15/18 [History] Ranitidine HCl [Zantac 75] 75 mg PO DAILY 11/15/18 [History] Sulfamethoxazole/Trimeth DS [Bactrim Ds] 1 tab PO BID 11/15/18 [History] Allergy/AdvReac Type Severity Reaction Status Date / Time No Known Allergies Allergy Verified 11/15/18 21:48 Review of Systems All systems PM: The remainder of the systems were reviewed and are negative General Surgery Exam Initial Vital Signs Temp Pulse Resp BP Pulse Ox 98.2 F 86 13 124/79 92 11/15/18 00:00 11/15/18 00:00 11/15/18 00:00 11/15/18 00:00 11/15/18 00:00 Exam Initial Vital Signs Temp Pulse Resp BP Pulse Ox 98.2 F 86 13 124/79 92 11/15/18 00:00 11/15/18 00:00 11/15/18 00:00 11/15/18 00:00 11/15/18 00:00 Results - Labs 11/21/18 08:15 11/21/18 08:15 Abnormal lab results RBC 3.81 M/mcL (3.82-4.97) L 11/21/18 08:15 Hgb 10.4 g/dL (11.5-15.4) L 11/21/18 08:15 Hct 33.3 % (35.3-44.9) L 11/21/18 08:15 MCH 27.3 pg (28.0-33.3) L 11/21/18 08:15 MCHC 31.2 g/dL (31.6-35.5) L 11/21/18 08:15 RDW 15.1 % (11.5-14.5) H 11/21/18 08:15 MPV 9.3 fL (9.4-12.4) L 11/21/18 08:15 PT 12.7 Seconds (9.4-12.1) H 11/20/18 12:01 Chloride 97 mEq/L (98-107) L 11/21/18 08:15 Carbon Dioxide 32 mEq/L (23-29) H 11/21/18 08:15 Creatinine 1.40 mg/dL (0.60-1.20) H 11/21/18 08:15 Est GFR ( Amer) 43 (> 60) L 11/21/18 08:15 Est GFR (Non-Af Amer) 35 (> 60) L 11/21/18 08:15 Iron 18 mcg/dL (50-170) L 11/16/18 05:12 % Saturation 4 % (15-50) L 11/16/18 05:12 Troponin I 0.09 ng/mL (< 0.04) H* 11/16/18 05:12 B-Natriuretic Peptide 544 pg/mL (Less than 100) H 11/16/18 05:12 Serum Total Protein 6.1 g/dL (6.4-8.9) L 11/16/18 05:12 Albumin 3.2 g/dL (3.5-5.7) L 11/16/18 05:12 Carcinoembryonic Ag 16.5 ng/mL (Less than 5.0) H 11/20/18 12:01 Folate > 22.3 ng/mL (3.0-16.0) H 11/21/18 08:15 Ur Leukocyte Esterase Moderate (Negative) H 11/16/18 03:56 Urine Microscopic RBC 3-5 per hpf (0-3) H 11/16/18 03:56 Urine Microscopic WBC 5-15 per hpf (0-3) H 11/16/18 03:56 Ur Squamous Epith Cells Moderate per lpf (None-Few) H 11/16/18 03:56 Ur Culture Indicated? YES (NO) A 11/16/18 03:56 Stool Occult Blood Positive (Negative) A 11/18/18 21:15 Diabetes panel 11/21/18 Range/Units 08:15 Sodium 138 (136-145) mEq/L Potassium 3.9 (3.5-5.1) mEq/L Chloride 97 L (98-107) mEq/L Carbon Dioxide 32 H (23-29) mEq/L BUN 14 (8-23) mg/dL Creatinine 1.40 H (0.60-1.20) mg/dL Glucose 105 (70-105) mg/dL Calcium 9.3 (8.6-10.3) mg/dL Calcium panel 11/21/18 Range/Units 08:15 Calcium 9.3 (8.6-10.3) mg/dL Phosphorus 2.8 (2.7-4.5) mg/dL Pituitary panel 11/21/18 Range/Units 08:15 Sodium 138 (136-145) mEq/L Potassium 3.9 (3.5-5.1) mEq/L Chloride 97 L (98-107) mEq/L Carbon Dioxide 32 H (23-29) mEq/L BUN 14 (8-23) mg/dL Creatinine 1.40 H (0.60-1.20) mg/dL Glucose 105 (70-105) mg/dL Calcium 9.3 (8.6-10.3) mg/dL Adrenal panel 11/21/18 Range/Units 08:15 Sodium 138 (136-145) mEq/L Potassium 3.9 (3.5-5.1) mEq/L Chloride 97 L (98-107) mEq/L Carbon Dioxide 32 H (23-29) mEq/L BUN 14 (8-23) mg/dL Creatinine 1.40 H (0.60-1.20) mg/dL Glucose 105 (70-105) mg/dL Calcium 9.3 (8.6-10.3) mg/dL All other labs normal. Consult Discharge Plan - Plan Referrals: NONE,PCP [Primary Care Provider] -
[2018-11-21] MEDS: Melatonin 3 MG TABLET PO SCH (21:04)
[2018-11-21] MEDS: Famotidine 20 MG TABLET PO SCH (21:04)
[2018-11-22] MEDS: *HR* Heparin 5,000 UNIT/ML VIAL SQ SCH ×2 (05:23→18:09)
[2018-11-22 08:10] LABS: Basophils % 0.4 %; Eosinophils # 0.3 K/mcL (0.0-0.6); Eosinophils % 2.8 %; Hematocrit 37.3 % (35.3-44.9); Hemoglobin 11.6 g/dL (11.5-15.4); Immature Granulocytes % 0.2 % (0-4); Lymphocytes # 3.9 K/mcL (0.6-4.6); Lymphocytes % 38.6 %; Mean Corpuscular HGB Conc 31.1 g/dL (31.6-35.5); Mean Corpuscular Hemoglobin 27.2 pg (28.0-33.3); Mean Corpuscular Volume 87.6 fL (83.0-100.0); Mean Platelet Volume 9.2 fL (9.4-12.4); Monocytes # 1.3 K/mcL (0.0-1.3); Monocytes % 12.2 %; Neutrophils # 4.7 K/mcL (1.6-8.9); Platelet Count 311 K/mcL (140-400); Red Blood Count 4.26 M/mcL (3.82-4.97); Red Cell Distribution Width 15.2 % (11.5-14.5); Segmented Neutrophils % 45.8 %
[2018-11-22 08:26] LABS: Calcium 9.8 mg/dL (8.6-10.3); Magnesium 2.2 mg/dL (1.6-2.6); Phosphorous 2.8 mg/dL (2.7-4.5); Potassium 4.4 mEq/L (3.5-5.1)
--- NOTE | 2018-11-22 09:09 | Event Note ---
Date of Encounter: 11/22/18 Time of Encounter: 09:07 Plan is for patient discharge today. She is going to follow-up in [address] Diana if she wants to have surgery for her colonic mass. At this point in time, anticoagulation for her atrial fibrillation is contraindicated with a bleeding colonic mass. --Follow-up with Dr. Diana will be scheduled prior to patient discharge.
[2018-11-22] MEDS: Metoprolol XL (24 HR) Succ 50 MG TAB.ER.24H PO SCH (10:07)
[2018-11-22] MEDS: Multivit/Ca/Min/Fe/FA 1 TAB TABLET PO SCH (10:07)
[2018-11-22] MEDS: Aspirin Enteric Coated 81 MG Tablet PO SCH (10:08)
[2018-11-22] MEDS: Torsemide 20 MG TABLET PO SCH (10:08)
[2018-11-22] MEDS: Magnesium Oxide 400 MG TABLET PO SCH (10:08)
[2018-11-22] MEDS: amLODIPine 5 MG TABLET PO SCH (10:08)
[2018-11-22] MEDS: Cholecalciferol (D-3) 1,000 UNIT TABLET PO SCH (10:15)
--- NOTE | 2018-11-22 12:56 | General Surgery Progress Note ---
Date of Encounter: 11/22/18 Time of Encounter: 12:50 Subjective Narrative: General Surgery - retiurned to follow up with the patient regarding her status. Patient feeling better, H&H improved to 11.6/37.3 following administration venofer. The patient does not wish to consider surgery. Daughter - in - law present during this conversation. The patient seems well aware of the risk of continued lower GI bleeding and anemia. Biopsies from colonoscopy still pendiing Will sign off, thank for this consultation. Objective Vital Signs - Last 8 Hours Pulse BP 11/22/18 07:13 95 137/78 Intake and Output 11/21/18 11/22/18 11/22/18 23:59 07:59 15:59 Intake Total 100 / 100 Output Total 700 / 700 400 / 400 550 / 550 Balance -700 / -700 -300 / -300 -550 / -550 Intake: Oral 100 / 100 Output: Urine 700 / 700 400 / 400 550 / 550 Other: Weight 72.4 kg Patient Weight 11/22/18 23:59 Weight 72.4 kg - Labs 11/22/18 07:56 11/22/18 07:56 Diabetes panel 11/22/18 Range/Units 07:56 Sodium 136 (136-145) mEq/L Potassium 4.4 (3.5-5.1) mEq/L Chloride 98 (98-107) mEq/L Carbon Dioxide 29 (23-29) mEq/L BUN 12 (8-23) mg/dL Creatinine 1.34 H (0.60-1.20) mg/dL Glucose 115 H (70-105) mg/dL Calcium 9.8 (8.6-10.3) mg/dL Calcium panel 11/22/18 Range/Units 07:56 Calcium 9.8 (8.6-10.3) mg/dL Phosphorus 2.8 (2.7-4.5) mg/dL Pituitary panel 11/22/18 Range/Units 07:56 Sodium 136 (136-145) mEq/L Potassium 4.4 (3.5-5.1) mEq/L Chloride 98 (98-107) mEq/L Carbon Dioxide 29 (23-29) mEq/L BUN 12 (8-23) mg/dL Creatinine 1.34 H (0.60-1.20) mg/dL Glucose 115 H (70-105) mg/dL Calcium 9.8 (8.6-10.3) mg/dL Adrenal panel 11/22/18 Range/Units 07:56 Sodium 136 (136-145) mEq/L Potassium 4.4 (3.5-5.1) mEq/L Chloride 98 (98-107) mEq/L Carbon Dioxide 29 (23-29) mEq/L BUN 12 (8-23) mg/dL Creatinine 1.34 H (0.60-1.20) mg/dL Glucose 115 H (70-105) mg/dL Calcium 9.8 (8.6-10.3) mg/dL Consult Discharge Plan - Plan Referrals: Yasmine Erwin MD [Non-Partnered Physician] - 11/29/18 10:40 am
--- NOTE | 2018-11-22 14:12 | Discharge Summary ---
- NOTES TO OUTPATIENT PROVIDER Notes to Outpatient Provider: CBC and Chemistry panel in 1 week Orders not resulted at time of discharge: Pending orders 11/20/18 13:27 Surgical Pathology [PTH] Routine Date of Encounter: 11/22/18 Time of Encounter: 14:10 - Discharge Diagnosis (1) Acute hypokalemia Priority: Secondary Status: Acute (2) Acute on chronic diastolic heart failure Priority: Primary Status: Acute (3) Mass of hepatic flexure of colon Priority: Secondary Status: Acute (4) Afib Priority: Secondary Status: Chronic Qualifiers: Atrial fibrillation type: chronic Qualified Code(s): I48.2 - Chronic atrial fibrillation (5) Anemia Priority: Secondary Status: Chronic Qualifiers: Anemia type: iron deficiency Qualified Code(s): D50.8 - Other iron deficiency anemias (6) HTN (hypertension) Priority: Secondary Status: Chronic Qualifiers: Hypertension type: essential hypertension Qualified Code(s): I10 - Essential (primary) hypertension (7) Hyperlipidemia Priority: Secondary Status: Chronic Qualifiers: Hyperlipidemia type: pure hypercholesterolemia Qualified Code(s): E78.00 - Pure hypercholesterolemia, unspecified; E78.0 - Pure hypercholesterolemia Hospital course: Ms. Reyes is a 88 year old female - Time Spent with Patient Total time spent providing and/or coordinating discharge services: - Discharge Medications Prescriptions: Indapamide [Lozol] 2.5 mg PO 0800 #30 tablet Magnesium Oxide [Mag-Ox] 400 mg PO DAILY #30 tablet Torsemide [Demadex] 20 mg PO DAILY #30 tablet Home Medications: Aspirin [Lo-Dose Aspirin EC] 81 mg PO DAILY 05/10/17 [History] Atorvastatin Calcium [Lipitor] 20 mg PO HS 05/10/17 [History] Cranberry Conc/C/Bacill Coag [Cranberry Tablet] 1 each PO DAILY 05/10/17 [History] Ergocalciferol (VITAMIN D2) [Vitamin D] 400 unit PO DAILY 05/10/17 [History] Melatonin [Melatin] 3 mg PO HS 05/10/17 [History] Multivit-Min/FA/Lycopen/Lutein [Centrum Silver Tablet] 1 each PO DAILY 05/10/17 [History] Oxybutynin [Ditropan] 5 mg PO HS 07/19/17 [History] Amlodipine Besylate 5 mg PO DAILY 11/15/18 [History] Metoprolol Succinate [Toprol Xl] 100 mg PO DAILY 11/15/18 [History] Ranitidine HCl [Zantac 75] 75 mg PO DAILY 11/15/18 [History] Indapamide [Lozol] 2.5 mg PO 0800 #30 tablet 11/22/18 [Rx] Magnesium Oxide [Mag-Ox] 400 mg PO DAILY #30 tablet 11/22/18 [Rx] Torsemide [Demadex] 20 mg PO DAILY #30 tablet 11/22/18 [Rx] Allergies/Adverse Reactions: Allergy/AdvReac Type Severity Reaction Status Date / Time No Known Allergies Allergy Verified 11/15/18 21:48 Date of admission: 11/16/18 14:44 Primary care physician: PCP NONE Consults: 11/15/18 17:08 Consult to Cardiology [CONS] Routine Comment: Consulting Provider: Cardiology Yelena Reason for Consult: CHF Call Completed: Yes 11/15/18 17:15 Consult to Bridge Attacher [CONS] Routine Reason for SW Consult: Patient wants to call [place] to see about HH and if she can get any benefits from her who 11/16/18 09:00 Consult to Nurse Navigator [CONS] Routine Comment: CHF 11/19/18 10:14 Consult to Gastroenterology [CONS] Routine Consulting Provider: Gastroenterology Yelena Reason for Consult: IRON-DEFFICIENCY ANEMIA; NEEDS GI WORKUP TO GET HER STARTED WITH ANICOAGULATION (AF) Time Notified: 10:00 Call Completed: Yes 11/20/18 14:15 Consult to Oncology [CONS] Routine Consulting Provider: Oncology [facility] Yelena Reason for Consult: Mass in ascending colon, history of colon cancer in 1995 s/p partial colectomy Time Notified: 14:00 Call Completed: Yes 11/21/18 08:47 Consult to Surgery [CONS] Routine Consulting Provider: Surgery [facility] Reason for Consult: colon mass at hepatic flexure Call Completed: Yes - Constitutional Vitals: Temp Pulse Resp BP Pulse Ox 98.2 F 95 14 137/78 90 11/22/18 03:50 11/22/18 07:13 11/22/18 03:50 11/22/18 07:13 11/22/18 03:50 General appearance: Present: cooperative, A&O X 3, answers questions appropriately - Discharge Instructions Follow Up With: Yasmine Erwin MD [Non-Partnered Physician] - 11/29/18 10:40 am
--- NOTE | 2018-11-22 19:54 | Internal Med Progress Note ---
Hospitalist Progress Note - Encounter Date of Encounter: 11/22/18 Time of Encounter: 10:00 - Subjective Interval History: 88 y/o female w/ PMHx of HTN, HLD, Diastolic CHF, Atrial Fibrillation not on A/C for unknown reasons ? GI bleed in past admitted w/ Acute on Chronic CHF, Anemia and Hypokalemia. Pt seen and examine at bedside. Pt feels well, denies cp, SOB or dizziness Pt reports LE edema improved this morning. Pt reports she still does not want surgery after speaking with family - Exam Vitals: Temp Pulse Resp BP Pulse Ox 98.2 F 85 14 121/77 90 11/22/18 03:50 11/22/18 17:13 11/22/18 03:50 11/22/18 17:13 11/22/18 03:50 Exam: General - Pt laying in bed, NAD HEENT - NC/AT. PERRLA, MMM Neck - supple, no LN Lungs - bibasilar rales CVS - RRR, nl S1, S2 Abd - soft NT/ND, BS+ Ext - 2.5+ pitting edema Neuro - no focal deficits - Summary of Assessment and Plan Summary of Assessment and Plan: 88 y/o female w/ PMHx of HTN, HLD, Diastolic CHF, Atrial Fibrillation not on A/C due to hx of Colon ca, GI bleed in past admitted w/ Acute on Chronic CHF, Anemia and Hypokalemia Acute on chronic CHF - Echo diastolic HF. EF 65-70%. indetermidate diastlic function. severely dilated lt atrium, mod Pul HTN. Small pericardial effusion - completed course of IV lasix, now on PO torsemide; LE still signficantly edematous per pt, likely due to venous insufficiency. - Mild troponemia due to demand - Cardiology recommendation appreciated. No intervention. - Cardiology signed off. Anemia - Likely from blood loss due mass - stool occult positive - EGD/Colonoscopy - mucosal congestion on EGD, Colonoscopy w/ an infiltrated, 4cm polypoid ulcerated nonobstructive large mass at hepatic flexture, no bleeding - cont to monitor - keep active T&S Colon Mass at Hepatic flecture - Oncology following - f/u biopsy - surgery consult appreciated - pt does NOT want surgery Atrial fibrillation - CHADSVASC score of 5 - c/w metoprolol for rate control - TSH normal - echocardiogram as above - Cardiology recommended GI workup before starting AC; spoke w/ Cardiology, no A/C given mass, pt already bled, although no active bleeding A/C puts patient at much higher risk for bleeding again - c/w just ASA CKD, HypoK - Unknown baseline - improved - K repleted, now stable. HTN/HLD - Continue home medication. DVT prophylaxis - HSQ - Time Spent with Patient Total time spent is greater than 50% in coordination of care (as documented) at patient's floor/unit and/or counseling patient: Internal Medicine: Result - Labs CBC & Chem 7: 11/22/18 07:56 11/22/18 07:56 Labs: Short CBC 11/22/18 Range/Units 07:56 WBC 10.2 (4.3-11.1) K/mcL Hgb 11.6 (11.5-15.4) g/dL Hct 37.3 (35.3-44.9) % Plt Count 311 (140-400) K/mcL Neutrophils # 4.7 (1.6-8.9) K/mcL BMP 11/22/18 07:56 Sodium 136 Potassium 4.4 Chloride 98 Carbon Dioxide 29 BUN 12 Creatinine 1.34 H Glucose 115 H Calcium 9.8 - ABG Interpretation ABG results: PT/INR, D-dimer PT 12.7 Seconds (9.4-12.1) H 11/20/18 12:01 Consult Discharge Plan - Plan Referrals: Yasmine Erwin MD [Non-Partnered Physician] - 11/29/18 10:40 am Prescriptions: Indapamide [Lozol] 2.5 mg PO 0800 #30 tablet Magnesium Oxide [Mag-Ox] 400 mg PO DAILY #30 tablet Torsemide [Demadex] 20 mg PO DAILY #30 tablet
[2018-11-22] MEDS: Melatonin 3 MG TABLET PO SCH (20:49)
[2018-11-22] MEDS: Famotidine 20 MG TABLET PO SCH (20:49)
[2018-11-23 06:08] LABS: Basophils % 0.4 %; Eosinophils # 0.3 K/mcL (0.0-0.6); Eosinophils % 2.7 %; Hemoglobin 10.9 g/dL (11.5-15.4); Immature Granulocytes % 0.2 % (0-4); Lymphocytes # 3.1 K/mcL (0.6-4.6); Lymphocytes % 32.3 %; Mean Corpuscular HGB Conc 31.1 g/dL (31.6-35.5); Mean Corpuscular Hemoglobin 27.5 pg (28.0-33.3); Mean Corpuscular Volume 88.2 fL (83.0-100.0); Mean Platelet Volume 9.6 fL (9.4-12.4); Monocytes # 1.1 K/mcL (0.0-1.3); Monocytes % 11.8 %; Nucleated Red Blood Cells 0.2 /100 WBC (0); Platelet Count 287 K/mcL (140-400); Red Blood Count 3.97 M/mcL (3.82-4.97); Red Cell Distribution Width 15.5 % (11.5-14.5); Segmented Neutrophils % 52.6 %
[2018-11-23 06:20] LABS: Calcium 9.5 mg/dL (8.6-10.3); Magnesium 2.2 mg/dL (1.6-2.6); Phosphorous 3.3 mg/dL (2.7-4.5); Potassium 4.4 mEq/L (3.5-5.1)
[2018-11-23] MEDS: *HR* Heparin 5,000 UNIT/ML VIAL SQ SCH (06:26)
[2018-11-23 07:17] VITALS: BP 147/83
[2018-11-23] MEDS: Metoprolol XL (24 HR) Succ 50 MG TAB.ER.24H PO SCH (09:38)
[2018-11-23] MEDS: Aspirin Enteric Coated 81 MG Tablet PO SCH (09:38)
[2018-11-23] MEDS: Cholecalciferol (D-3) 1,000 UNIT TABLET PO SCH (09:38)
[2018-11-23] MEDS: Multivit/Ca/Min/Fe/FA 1 TAB TABLET PO SCH (09:38)
[2018-11-23] MEDS: amLODIPine 5 MG TABLET PO SCH (09:38)
[2018-11-23] MEDS: Magnesium Oxide 400 MG TABLET PO SCH (09:38)
[2018-11-23] MEDS: Torsemide 20 MG TABLET PO SCH (09:38)
--- NOTE | 2018-11-23 11:03 | Discharge Summary ---
Orders not resulted at time of discharge: Pending orders 11/20/18 13:27 Surgical Pathology [PTH] Routine Date of Encounter: 11/23/18 Time of Encounter: 11:00 - Discharge Diagnosis (1) CKD (chronic kidney disease) stage 3, GFR 30-59 ml/min Priority: Secondary Status: Chronic (2) CHF (congestive heart failure), NYHA class III Priority: Primary Status: Acute Comments: as Qualifiers: Congestive heart failure type: diastolic Congestive heart failure chronicity: acute on chronic Qualified Code(s): I50.33 - Acute on chronic diastolic (congestive) heart failure (3) Afib Priority: Secondary Status: Chronic Qualifiers: Atrial fibrillation type: chronic Qualified Code(s): I48.2 - Chronic atrial fibrillation (4) HTN (hypertension) Priority: Secondary Status: Chronic Qualifiers: Hypertension type: essential hypertension Qualified Code(s): I10 - Essential (primary) hypertension (5) Hyperlipidemia Priority: Secondary Status: Chronic Qualifiers: Hyperlipidemia type: pure hypercholesterolemia Qualified Code(s): E78.00 - Pure hypercholesterolemia, unspecified; E78.0 - Pure hypercholesterolemia (6) Anemia Priority: Secondary Status: Chronic Qualifiers: Anemia type: iron deficiency Qualified Code(s): D50.8 - Other iron deficiency anemias (7) Mass of hepatic flexure of colon Priority: Secondary Status: Acute Hospital course: Ms. Reyes is a 88 year old female she was admitted on 11/15 for SOB from atrial fib and anemia 88 y/o female w/ PMHx of HTN, HLD, Diastolic CHF, Atrial Fibrillation not on A/C due to hx of Colon ca, GI bleed in past admitted w/ Acute on Chronic CHF, Anemia and Hypokalemia Acute on chronic diastolic CHF exacerbation - Echo diastolic HF. EF 65-70%. indetermidate diastlic function. severely dilated lt atrium, mod Pul HTN. Small pericardial effusion - completed course of IV lasix, now on PO torsemide; - Mild troponemia due to demand - Cardiology recommendation appreciated. No intervention. - Cardiology signed off. follow up as OP Anemia of iron deficiency from possible GI bleeding - Likely from blood loss due mass - stool occult positive - EGD/Colonoscopy - mucosal congestion on EGD, Colonoscopy w/ an infiltrated, 4cm polypoid ulcerated nonobstructive large mass at hepatic flexture, no bleeding - cont to monitor - keep active T&S Colon Mass at Hepatic flecture - Oncology following - f/u biopsy - surgery consult appreciated - pt does NOT want surgery follow up with Oncology for further treatment Atrial fibrillation - CHADSVASC score of 5 - c/w metoprolol for rate control - TSH normal - echocardiogram as above - Cardiology recommended GI workup before starting AC; spoke w/ Cardiology, no A/C given mass, pt already bled, although no active bleeding A/C puts patient at much higher risk for bleeding again - c/w just ASA 81 mg daily CKD III, Cr improved hypokalmeia resolved HTN/HLD - Continue home medication. B/L venostasis wound, mild cellulitis, duplex was negative for DVT on 11/22, discharge on doxycline for 10 days, follow up with PCP DVT prophylaxis - HSQ - Time Spent with Patient Total time spent providing and/or coordinating discharge services: - Discharge Medications Prescriptions: Doxycycline 100 mg PO BID #20 capsule Indapamide [Lozol] 2.5 mg PO 0800 #30 tablet Magnesium Oxide [Mag-Ox] 400 mg PO DAILY #30 tablet Torsemide [Demadex] 20 mg PO DAILY #30 tablet Home Medications: Aspirin [Lo-Dose Aspirin EC] 81 mg PO DAILY 05/10/17 [History] Atorvastatin Calcium [Lipitor] 20 mg PO HS 05/10/17 [History] Cranberry Conc/C/Bacill Coag [Cranberry Tablet] 1 each PO DAILY 05/10/17 [History] Ergocalciferol (VITAMIN D2) [Vitamin D] 400 unit PO DAILY 05/10/17 [History] Melatonin [Melatin] 3 mg PO HS 05/10/17 [History] Multivit-Min/FA/Lycopen/Lutein [Centrum Silver Tablet] 1 each PO DAILY 05/10/17 [History] Oxybutynin [Ditropan] 5 mg PO HS 05/10/17 [History] Amlodipine Besylate 5 mg PO DAILY 11/15/18 [History] Metoprolol Succinate [Toprol Xl] 100 mg PO DAILY 11/15/18 [History] Ranitidine HCl [Zantac 75] 75 mg PO DAILY 11/15/18 [History] Indapamide [Lozol] 2.5 mg PO 0800 #30 tablet 11/22/18 [Rx] Magnesium Oxide [Mag-Ox] 400 mg PO DAILY #30 tablet 11/22/18 [Rx] Torsemide [Demadex] 20 mg PO DAILY #30 tablet 11/22/18 [Rx] Doxycycline 100 mg PO BID #20 capsule 11/23/18 [Rx] Allergies/Adverse Reactions: Allergy/AdvReac Type Severity Reaction Status Date / Time No Known Allergies Allergy Verified 11/15/18 21:48 Date of admission: 11/16/18 14:44 Primary care physician: PCP NONE Consults: 11/15/18 17:08 Consult to Cardiology [CONS] Routine Comment: Consulting Provider: Cardiology Yelena Reason for Consult: CHF Call Completed: Yes 11/15/18 17:15 Consult to Stonemason Helper [CONS] Routine Reason for SW Consult: [facility] and if she can get any benefits from her who 11/16/18 09:00 Consult to Nurse Navigator [CONS] Routine Comment: CHF 11/19/18 10:14 Consult to Gastroenterology [CONS] Routine Consulting Provider: Gastroenterology Yelena Reason for Consult: IRON-DEFFICIENCY ANEMIA; NEEDS GI WORKUP TO GET HER STARTED WITH ANICOAGULATION (AF) Time Notified: 10:00 Call Completed: Yes 11/20/18 14:15 Consult to Oncology [CONS] Routine Consulting Provider: Oncology [facility] Yelena Reason for Consult: Mass in ascending colon, history of colon cancer in 1995 s/p partial colectomy Time Notified: 14:00 Call Completed: Yes 11/21/18 08:47 Consult to Surgery [CONS] Routine Consulting Provider: Surgery Garcia Surg - Sinandrew Reason for Consult: colon mass at hepatic flexure Call Completed: Yes Anticipated date of discharge: 11/23/18 - Constitutional Vitals: Temp Pulse Resp BP Pulse Ox 97.2 F L 80 82 147/83 90 11/23/18 07:14 11/23/18 04:32 11/23/18 07:14 11/23/18 07:14 11/23/18 07:14 General appearance: Present: cooperative, A&O X 3, answers questions appropriately Exam: CONSTITUTIONAL: patient appears as an age appropriate female in no acute distress. EYES Clear sclerae, bilateral pupils are equal, reactive to light. EMOI. RESPIRATORY: No accessory muscle use, bilateral basilar crackles to auscultation. CARDIOVASCULAR: Regular heart rate, normal S1 and S2, no murmurs GASTROINTESTINAL: bowel sounds present, soft, no tenderness. MUSCULOSKELETAL: Joints in normal range of motion, no clubbing, ++ edema, no cyanosis. Bilateral peripheral pulses 2+. NEUROLOGIC: CN II to XII are grossly intact, no focal neurological deficit. - Patient Status Disposition: Home, Self-Care Condition: Good Functional capacity at discharge: independent ambulation Overall status at discharge: patient is back to baseline - Discharge Instructions Follow Up With: Yasmine Erwin MD [Non-Partnered Physician] - 11/29/18 10:40 am Dashawn Diana MD [Partnered Physician] - Sergio Aleman MD [Partnered Physician] - - Diet and Activity Diet: low fat, low cholesterol
== END 2018-11-23 14:20 | disposition home or self-care (01) | DRG 291 ==
LOC: 2NENU → SUATTDRO 16:22
PROVIDERS: ADMIT Hospitalist; ATTEND Hospitalist
PROC: ENDOCBX (2018-11-20 13:00)
PROC: ENDOEBX (2018-11-20 13:00)

== ENCOUNTER 2018-12-03 15:39 | Inpatient (IN) ==
[2018-12-03] MEDS ORDERED: Haloperidol Lactate 5 MG/ML VIAL IM ONE ×2 (17:08→18:26)
--- NOTE | 2018-12-03 17:11 | Emergency Department Note ---
Disposition Clinical Impression: Hyponatremia, Combative behavior, Hypokalemia Disposition: Admitted As Inpatient Condition: Fair General Adult HPI - General Stated complaint: low sodium Time Seen by Provider: 12/03/18 15:53 - Related Data Home Medications Medication Instructions Recorded Confirmed RX: Aspirin [Lo-Dose Aspirin EC] 81 mg PO DAILY 05/10/17 12/03/18 RX: Atorvastatin Calcium [Lipitor] 20 mg PO HS 05/10/17 12/03/18 RX: Cranberry Conc/C/Bacill Coag 1 each PO DAILY 05/10/17 12/03/18 [Cranberry Tablet] RX: Ergocalciferol (VITAMIN D2) 400 unit PO DAILY 05/10/17 12/03/18 [Vitamin D] RX: Melatonin [Melatin] 3 mg PO HS 05/10/17 12/03/18 RX: Multivit-Min/FA/Lycopen/Lutein 1 each PO DAILY 05/10/17 12/03/18 [Centrum Silver Tablet] RX: Oxybutynin [Ditropan] 5 mg PO HS 05/10/17 12/03/18 RX: Amlodipine Besylate 5 mg PO DAILY 11/15/18 12/03/18 RX: Metoprolol Succinate [Toprol 100 mg PO DAILY 11/15/18 12/03/18 Xl] RX: Ranitidine HCl [Zantac 75] 75 mg PO DAILY 11/15/18 12/03/18 Citalopram Hydrobromide 10 mg PO DAILY 12/03/18 12/03/18 [Citalopram HBr] RX: Indapamide [Lozol] 2.5 mg PO DAILY 12/03/18 12/03/18 Previous Rx's Medication Instructions Recorded RX: Doxycycline 100 mg PO BID #20 capsule 11/23/18 RX: Torsemide [Demadex] 20 mg PO DAILY #30 tablet 11/23/18 Allergies Allergy/AdvReac Type Severity Reaction Status Date / Time ammonium lactate Allergy Rash Uncoded 12/03/18 10:23 Past Medical History - Past Medical History Medical history: Reports: cancer, hyperlipidemia, hypertension Surgical history: Reports: colectomy Psychiatric history: Reports: no psych history - Social History Smoking Status: Never smoker Smokeless Tobacco Status: No Alcohol use: Reports: none Drug use: Reports: none Course Vital Signs Temperature 97.9 F 12/03/18 17:36 Pulse Rate 79 12/03/18 17:36 Respiratory Rate 16 12/03/18 17:36 Blood Pressure 139/106 12/03/18 17:36 O2 Sat by Pulse Oximetry 100 12/03/18 17:36 Temperature 96.6 F L 12/04/18 03:00 Pulse Rate 75 12/04/18 06:00 Respiratory Rate 16 12/04/18 06:00 Blood Pressure 126/69 12/04/18 06:00 O2 Sat by Pulse Oximetry 96 12/04/18 06:00 Oxygen Delivery Oxygen Delivery Nasal Cannula Medical Decision Making - Lab Data Result diagrams: 12/04/18 07:14 Lab Results 12/03/18 Range/Units 22:23 POC Glucose 90 (70-99) mg/dL Attestation Statement - Attestation Attestation: Resident Attestation: I examined this patient and my medical decision making was reviewed with the Resident Physician. I agree with the documented findings, disposition and treatment plan as described except to the extent set forth below. We independently had [id number] contact with the patient. Patient was initially seen at the cancer center earlier today for a checkup when she was found to be significantly combative. Blood work was performed and the patient's sodium was found to be 117 with a potassium of 2.5. This is an acute change from her most recent labs. The patient was told to return to the emergency department. Patient has been taking care of by power of health care attorney who is her daughter. Power of health care attorney states that she has been confused agitated and irritated and not herself over the past 2 days. On my evaluation the patient knows her name, date, place, president. She states she does not want to be in the hospital and does not want anything to be performed. A significant amount of effort was made to get a better idea of her mental status. After approximately 1 hour of noncontinuous one-on-one time in multiple interviews, she repeatedly states the same thing that she has her care in "Gods hands". But is unable to state further insight into medical condition or the fact that she could go home and from either a heart attack or seizure, aspiration, hypoxia. Patient has refused medical treatment in the past including surgery for colon cancer as well as chemotherapy and radiation. At this time I discussed the patient's ability to make decisions for herself with family. Power of health care attorney and [id number] are adamant that the patient needs to be in the hospital and is not safe to go home. The patient would not want to go home if she was in her right mind new that she could from a preventable electrolyte disturbance. The son is unsure if this is best. I did give him a significant amount of time to discuss this at bedside. After the son had a furt her chance to interview his mother he understands that this is the best treatment option at this time. During my interviews with them they did disclose that the patient tried getting out of a moving vehicle. Her confusion has caused her to not want to take any of her medications. She has had nausea and vomiting and has not been keeping up with hydration. At this point, her decisions are putting herself in harm's way. I do believe that if the patient went home with her current condition she would likely have a bad outcome. The patient despite her being awake alert and oriented to year, person, place, she does not understand the consequences of her decisions nor understand alternative treatment pathways. The patient has had an acute change noted by power of health care attorney as well as cancer doctors that would both like further evaluation. Patient is also unable to state that her wish is for palliative care. After extensive discussion with family and the patient, we have decided to adm inreplaced by [facility] Haldol in order to allow us to repeat electrolytes as well as provide normal saline. Dr. Cadet, nephrology was contacted when the patient initially arrived in the emergency department in regards to recommendations for hyponatremia treatment plan. Does not recommend hypertonic saline, but does recommend normal saline at 100 mL's per hour for 5 hours and a repeat sodium at that time. Patient is awaiting IV placement at this time. She has been given medications to allow for treatment plan. The case was signed out to Dr. Morgan to ensure that an IV was placed prior to patient going to the floor.
--- NOTE | 2018-12-03 17:12 | Emergency Department Note ---
Disposition Clinical Impression: Hyponatremia, Combative behavior, Hypokalemia Disposition: Admitted As Inpatient Condition: Fair Forms: ED Satisfaction Letter Time of Disposition: 18:43 General Adult HPI - General Stated complaint: low sodium Time Seen by Provider: 12/03/18 15:53 Source: patient, family Mode of arrival: wheelchair Limitations: altered mental status Nursing Notes Reviewed: Yes Vital Signs Reviewed: Yes - History of Present Illness HPI Narrative: Patient is an 88-year-old female with past medical history of colon cancer in which she refused undergoing surgery for but did not undergo radiation treatment presents immersed department at the request of her oncologist today after having abnormal lab values as well as being combative and confused. She is found to negro ve a low sodium of 117. She is also bad of the staff at the oncology center. He is concerned that this is causing her to have altered mental status. Family states that she is also attempted jumping out of the moving vehicle on the way here. She keeps stating that God does not want her to pursue further medical treatment does not want to take anymore medicine. According to family patient not eating, drinking, multiple episodes of vomiting. Appointment at the cancer center today and was combative. Patient was found to have a critically low sodium. - Related Data Home Medications Medication Instructions Recorded Confirmed Aspirin [Lo-Dose Aspirin EC] 81 mg PO DAILY 05/10/17 12/03/18 Atorvastatin Calcium [Lipitor] 20 mg PO HS 05/10/17 12/03/18 Cranberry Conc/C/Bacill Coag 1 each PO DAILY 05/10/17 12/03/18 [Cranberry Tablet] Ergocalciferol (VITAMIN D2) 400 unit PO DAILY 05/10/17 12/03/18 [Vitamin D] Melatonin [Melatin] 3 mg PO HS 05/10/17 12/03/18 Multivit-Min/FA/Lycopen/Lutein 1 each PO DAILY 05/10/17 12/03/18 [Centrum Silver Tablet] Oxybutynin [Ditropan] 5 mg PO HS 05/10/17 12/03/18 Amlodipine Besylate 5 mg PO DAILY 11/15/18 12/03/18 Metoprolol Succinate [Toprol Xl] 100 mg PO DAILY 11/15/18 12/03/18 Ranitidine HCl [Zantac 75] 75 mg PO DAILY 11/15/18 12/03/18 Citalopram Hydrobromide 10 mg PO DAILY 12/03/18 12/03/18 [Citalopram HBr] Indapamide [Lozol] 2.5 mg PO DAILY 12/03/18 12/03/18 Previous Rx's Medication Instructions Recorded Doxycycline 100 mg PO BID #20 capsule 11/23/18 Torsemide [Demadex] 20 mg PO DAILY #30 tablet 11/23/18 Allergies Allergy/AdvReac Type Severity Reaction Status Date / Time ammonium lactate Allergy Rash Uncoded 12/03/18 10:23 All systems ED: reviewed and negative except as stated. Review of Systems: As Per HPI Constitutional: Denies: fever, chills Cardiovascular: Denies: chest pain, palpitations, dyspnea on exertion Respiratory: Denies: cough, dyspnea Gastrointestinal: Reports: nausea, vomiting. Denies: abdominal pain Genitourinary: Denies: urgency, dysuria Neurological: Denies: headache, weakness, numbness, paresthesias Past Medical History - Past Medical History Attestation: Yes The following information was validated with the patient. Medical history: Reports: cancer, hyperlipidemia, hypertension Surgical history: Reports: colectomy Psychiatric history: Reports: no psych history - Social History Smoking Status: Never smoker Smokeless Tobacco Status: No Alcohol use: Reports: none Drug use: Reports: none Physical Exam - General Limitations: no limitations, other (Patient is oriented x 3) - Head Head exam: atraumatic, normocephalic, normal inspection - Eye Eye exam: Present: normal appearance, PERRL, EOMI - ENT ENT exam: normal exam, normal oropharynx, mucous membranes moist - Neck Neck exam: Present: normal inspection, full ROM, trachea midline - Chest Chest inspection: Present: normal inspection, symmetric chest wall rise - Respiratory Respiratory exam: Present: normal lung sounds bilaterally - Cardiovascular Cardiovascular exam: Present: regular rate, normal rhythm, normal heart sounds, +S1, +S2 - Abdominal Exam Abdominal exam: Present: soft, Non-Tender. Absent: tenderness, distention, guarding, rebound, rigidity - Extremities Exam Extremities exam: Present: normal inspection, full ROM. Absent: tenderness, pedal edema - Back Exam Back exam: Present: normal inspection, full ROM. Absent: tenderness - Neurological Exam Neurological exam: Present: alert, oriented X3 - Psychiatric Psychiatric exam: Present: agitated - Skin Skin exam: Present: warm, dry, intact, normal color Course Course Narrative: Patient's case was discussed extensively between my attending and the patient's power of finance attorney which is her daughter as well as her son who are present. Dr. Cadet, campus receptionist was also present. The patient at the time of discussion appears to have decision-making capacity however given her recent behavior changes as well as her sodium of 117 our concern is that she does not actually have the capacity. The plan at this time is to sedate the patient with Haldol after thorough discussions with the patient's family members at bedside group consensus was to attempt to treat the patient. I do not think that she is making appropriate decisions for herself at this time. The patient ultimately be admitted the hospital Dr. Cadet states the patient will need normal saline 100 ML's per hour with recheck of labs. - Reevaluation(s) Reevaluation #1: Patient accepted to the Hospital by Dr. Gabriel. Time: 18:45 Vital Signs Temperature 97.9 F 12/03/18 17:36 Pulse Rate 79 12/03/18 17:36 Respiratory Rate 16 12/03/18 17:36 Blood Pressure 139/106 12/03/18 17:36 O2 Sat by Pulse Oximetry 100 12/03/18 17:36 Temperature 97.9 F 12/03/18 17:36 Pulse Rate 79 12/03/18 17:36 Respiratory Rate 16 12/03/18 17:36 Blood Pressure 139/106 12/03/18 17:36 O2 Sat by Pulse Oximetry 100 12/03/18 17:36 Oxygen Delivery Oxygen Delivery Room Air Medical Decision Making - Medical Records Medical records reviewed: Yes I reviewed the patient's medical records. - Lab Data Lab results reviewed: Yes I reviewed the patient's lab results.
--- NOTE | 2018-12-03 18:16 | Nephrology Consult Note ---
Date of Encounter: 12/03/18 Time of Encounter: 18:11 Assessment and Plan (1) Hyponatremia Status: Acute The patient presents with acute hyponatremia of unclear etiology. She is possibly asymptomatic. After talking with Dr. Nicholas in the emergency room I evaluated the patient with her power of business attorney and 2 other family members present. I had a very prolonged conversation with the patient. Overall the patient appears to be comfortable and in no acute distress. Unfortunately the patient does not seem to be completely oriented, although she has a fairly decent idea of what is going on. Her refusal of medical therapy at this time would be difficult to honor as it is unclear if this is what she would truly want. With the risk of worsening hyponatremia along with the possibility of cardiac arrhythmias from her severe hypokalemia in the context of a power of business attorney and family wanting more aggressive care I think it is rational to continue with treatment for now. The patient has multiple metabolic derangements that could contribute to altered mental status including severe hyponatremia, and an unexplained leukocytosis. While in the end she will likely not want aggressive care based on the conversation with the patient and her family I do think is reasonable to manage her acute electrolyte problems at this time. I recommend repeating her basic metabolic panel, and checking a magnesium level, serum and urine osmolality. With her history of decreased oral intake I would recommend that she receive normal saline if her repeat sodium remains low. I had an extensive conversation with the family and the patient as well as with Dr. Nicholas. A total of 51 minutes was spent in the care of this patient with greater than one half of that time being in coordination of care and/or counseling. (2) Hypokalemia Status: Acute Refer to hyponatremia. (3) Leukocytosis Status: Acute Could be related to her neoplasm versus other. Qualifiers: Qualified Code(s): D72.829 - Elevated white blood cell count, unspecified (4) Adenocarcinoma Status: Acute Recent diagnosis. We will defer to oncology. History of Present Illness - Reason for Consult Consult date: 12/03/18 hyponatremia - Chief Complaint Hyponatremia - History of Present Illness Mrs. Magallon is an 88-year-old woman with a recent diagnosis of adenocarcinoma of the colon who presents from home after lab results earlier today revealed a sodium of 117. The patient was admitted to the emergency room and I was called by the emergency room physician to evaluate the patient and assist with management of hyponatremia that is probably symptomatic. The patient recently was diagnosed with adenocarcinoma of the colon and was in to see her oncologist today. At the time my evaluation the patient reports that she feels okay, and that she wants to go home. She is refusing repeat lab draw, and refusing admission into the hospital. The power of business attorney is in the room along with 2 other family members. The power of business attorney thinks that the patient is confused along with one of the family members and would like for her to be admitted for management. I had a very prolonged discussion with the patient who seemed to no most details of her life, however was unable to tell me exactly where she was, and thought that her labs were drawn yesterday as opposed to today. She felt that she was forced to come to the hospital. She states that she did not want labs drawn earlier, but just wanted her urine checked. She repeatedly states that she talks to God and that God states that she is going to be fine. She does not complain of anything, but she does want somebody to drink. Past Med Surg Social Fam HX - Past Medical History Medical history: cancer, hyperlipidemia, hypertension Additional medical history: colon ca, Psychiatric history: no psych history - Past Surgical History Surgical History: colectomy Additional surgical history: CTR - Social History Smoking Status: Never smoker Smokeless Tobacco Status: No Alcohol use: none Drug use: none - Family History Father Living Status: Hx Family Cardiac Disorders: Yes Hx Family Respiratory Disorders: No Hx Family Cancer: No Hx Family GI Disorders: No Hx Family Endocrine Disorder: No Hx Family Neuromuscular Disorders: No Hx Family Neurologic Disorders: No Hx Family HEENT Disorders: No Hx Family Autoimmune Disorders: No Medications and Allergies Aspirin [Lo-Dose Aspirin EC] 81 mg PO DAILY 05/10/17 [History] Atorvastatin Calcium [Lipitor] 20 mg PO HS 05/10/17 [History] Cranberry Conc/C/Bacill Coag [Cranberry Tablet] 1 each PO DAILY 05/10/17 [History] Ergocalciferol (VITAMIN D2) [Vitamin D] 400 unit PO DAILY 05/10/17 [History] Melatonin [Melatin] 3 mg PO HS 05/10/17 [History] Multivit-Min/FA/Lycopen/Lutein [Centrum Silver Tablet] 1 each PO DAILY 05/10/17 [History] Oxybutynin [Ditropan] 5 mg PO HS 05/10/17 [History] Amlodipine Besylate 5 mg PO DAILY 11/15/18 [History] Metoprolol Succinate [Toprol Xl] 100 mg PO DAILY 11/15/18 [History] Ranitidine HCl [Zantac 75] 75 mg PO DAILY 11/15/18 [History] Doxycycline 100 mg PO BID #20 capsule 11/23/18 [Rx] Torsemide [Demadex] 20 mg PO DAILY #30 tablet 11/23/18 [Rx] Citalopram Hydrobromide [Citalopram HBr] 10 mg PO DAILY 12/03/18 [History] Indapamide [Lozol] 2.5 mg PO DAILY 12/03/18 [History] Allergy/AdvReac Type Severity Reaction Status Date / Time ammonium lactate Allergy Rash Uncoded 12/03/18 10:23 Review of Systems All Systems: reviewed and no additional remarkable complaints except as stated (As per history of present illness) Exam - Vital Signs Vital signs: Initial Vital Signs Temp Pulse Resp BP Pulse Ox 0 F L 0 0 0/0 0 12/03/18 17:36 12/03/18 17:36 12/03/18 17:36 12/03/18 17:36 12/03/18 17:36 Vital Signs - Last 8 Hours Temp Pulse Resp BP Pulse Ox 12/03/18 17:36 0 F L 0 0 0/0 0 Intake and Output 12/03/18 12/03/18 12/03/18 07:59 15:59 23:59 Other: Weight 66.678 kg Patient Weight 12/03/18 23:59 Weight 66.678 kg - General Appearance General appearance: well-developed, well-nourished, frail EENT: ATNC Neck: supple Additional Comments: Her respirations are unlabored Cardiology: no edema Additional Comments: She is tachycardic Integumentary: warm and dry Additional Comments: She is alert to self, but does not know where she is (she thinks she is in the cancer office, but knows she is in the hospital as she does not want to stay here) and is occasionally wrong about time. Psychiatric: mood/affect appropriate
[2018-12-03] MEDS ORDERED: *HR* LORazepam 2 MG/ML VIAL IM ONE (19:15)
[2018-12-03] MEDS: 0.9 % Sodium Chloride 1,000 ML IVC SCH ×2 (20:39→23:12)
[2018-12-03] MEDS ORDERED: Naloxone 0.4 MG/ML INJ IVP PRN (23:12)
[2018-12-03] MEDS ORDERED: Acetaminophen 325 MG TABLET PO PRN (23:15)
--- NOTE | 2018-12-03 23:16 | Internal Med History&Physical ---
Date of Encounter: 12/03/18 Time of Encounter: 23:16 Internal Medicine - H&P: HPI History of present illness: Ms. Reyes is a 88 year old female Past Med Surg Social Fam HX - Past Medical History Medical history: cancer, hyperlipidemia, hypertension Additional medical history: colon ca, Psychiatric history: no psych history - Past Surgical History Surgical History: colectomy Additional surgical history: CTR - Social History Smoking Status: Never smoker Smokeless Tobacco Status: No Alcohol use: none Drug use: none - Family History Father Living Status: Hx Family Cardiac Disorders: Yes Hx Family Respiratory Disorders: No Hx Family Cancer: No Hx Family GI Disorders: No Hx Family Endocrine Disorder: No Hx Family Neuromuscular Disorders: No Hx Family Neurologic Disorders: No Hx Family HEENT Disorders: No Hx Family Autoimmune Disorders: No Internal Medicine - H&P: Meds Aspirin [Lo-Dose Aspirin EC] 81 mg PO DAILY 05/10/17 [History] Atorvastatin Calcium [Lipitor] 20 mg PO HS 05/10/17 [History] Cranberry Conc/C/Bacill Coag [Cranberry Tablet] 1 each PO DAILY 05/10/17 [History] Ergocalciferol (VITAMIN D2) [Vitamin D] 400 unit PO DAILY 05/10/17 [History] Melatonin [Melatin] 3 mg PO HS 05/10/17 [History] Multivit-Min/FA/Lycopen/Lutein [Centrum Silver Tablet] 1 each PO DAILY 05/10/17 [History] Oxybutynin [Ditropan] 5 mg PO HS 05/10/17 [History] Amlodipine Besylate 5 mg PO DAILY 11/15/18 [History] Metoprolol Succinate [Toprol Xl] 100 mg PO DAILY 11/15/18 [History] Ranitidine HCl [Zantac 75] 75 mg PO DAILY 11/15/18 [History] Doxycycline 100 mg PO BID #20 capsule 11/23/18 [Rx] Torsemide [Demadex] 20 mg PO DAILY #30 tablet 11/23/18 [Rx] Citalopram Hydrobromide [Citalopram HBr] 10 mg PO DAILY 12/03/18 [History] Indapamide [Lozol] 2.5 mg PO DAILY 12/03/18 [History] Allergy/AdvReac Type Severity Reaction Status Date / Time ammonium lactate Allergy Rash Uncoded 12/03/18 10:23 All Systems PM: A 10-system review of systems was performed and is negative for pertinent findings except as documented above in the HPI. - Constitutional Vitals: Temp Pulse Resp BP Pulse Ox 97.9 F 59 16 100/52 94 12/03/18 17:36 12/03/18 22:11 12/03/18 22:11 12/03/18 22:11 12/03/18 22:11 - Time Spent With Patient Total time spent is greater than 50% in coordination of care (as documented) at patient's floor/unit and/or counseling patient:
[2018-12-03] MEDS ORDERED: *HR* LORazepam 2 MG/ML VIAL IVP PRN (23:19)
[2018-12-04 00:07] LABS: Potassium 2.4 mEq/L (3.5-5.1)
[2018-12-04 00:08] LABS: Albumin 3.4 g/dL (3.5-5.7); Albumin/Globulin Ratio 1.2 (1.1-2.2); Bilirubin,Total 1.2 mg/dL (0.3-1.0); Calcium 9.4 mg/dL (8.6-10.3); Globulin 2.9 g/dL (2.4-3.5); Magnesium 2.3 mg/dL (1.6-2.6); Total Protein 6.3 g/dL (6.4-8.9)
--- NOTE | 2018-12-04 00:11 | Internal Med History&Physical ---
Date of Encounter: 12/03/18 Time of Encounter: 20:15 Internal Medicine - H&P: HPI Chief complaint: abnormal labs; AMS Admitted From: Emergency Dept Plans for Post Hospital Care: Home History of present illness: Ms. Reyes is a 88 year old female who presents to the ER tonight from the cancer center for concerns of critical lab results and altered mental status. Altered mental status started about 1 week ago and has progressed until today. Two weeks ago, she was fully independent, coherent, and caring for herself. Patient was recently diagnosed with recurrence of her colon cancer a few weeks ago. She refused surgery and/or any further intervention at her last hospital stay a few weeks ago. She followed up with the Cancer Center today to discuss treatment options, if any. She had some labs drawn while at that visit. She was noted to be critically hyponatremic and hypokalemic. She also reportedly had significant altered mental status, confusion, and combativeness as detailed by family and ER staff. Her family brought her to the ER, and patient had to be sedated in the ER due to combativeness and agitation and confusion. She was then admitted to hospitalist service for further workup and care. Upon my assessment of the patient in the ER, I met with several family members, including the power of senior attorney, which is her daughter. She is somnolent and responds only to pain now. She does not provide any history whatsoever. All history is obtained from old records, my prolonged discussion with family, ER records, and cancer center records. Family states she had protracted nausea, vomiting, and diarrhea over the last several days. She has had no fevers. She has had no chest pain or shortness of breath. I reviewed her old and recent hospital records were she refused to have any further surgery and/or treatment for colon cancer. Family confirmed that. However, family now wants proceed with further treatment options. I informed them that we would monitor her sodium levels and treat her medically at this time. However, I spoke with family at length and recommended that when she is fully awake, coherent, and able to make her own decisions, we have to morally, ethically, and legally respect her decisions -- even if they go against the family wishes. Family voiced understanding and agreed with my recommendations at this time. For now, she will remain full code until we can further elaborate with her the code status when she is coherent, cognizant, and competent to discuss and make her own decisions. Of note, based upon the history, patient had nausea, vomiting, and diarrhea, concerning for dehydration. She received a liter saline bolus in ER and then MIV at 100 ml/hr. I stopped her MIV for now until we could obtain further labs. She is also on 2 different diuretics which could also contribute to her hyponatreamia. Additionally, she has colon cancer and may be developing SIADH. I informed family of my concerns and that she is critical now. Additionally, if she loses her capacity to make her own decisions beyond this point, then family/POA will need to make further decisions upon her behalf and not the family's wishes. They all voiced understanding, including POA. Past Med Surg Social Fam HX - Past Medical History Source: old records reviewed, obtained from family, other (ER, Cancer Center records) Medical history: cancer, hyperlipidemia, hypertension Additional medical history: colon ca, Psychiatric history: no psych history - Past Surgical History Surgical History: colectomy Additional surgical history: CTR - Social History Smoking Status: Never smoker Smokeless Tobacco Status: No Alcohol use: none Drug use: none Current living situation: Home, With Family Activity Level: Independent ambulation Recent Out of Country Travel Within the Last 8 Weeks: No - Family History Father Living Status: Hx Family Cardiac Disorders: Yes Hx Family Respiratory Disorders: No Hx Family Cancer: No Hx Family GI Disorders: No Hx Family Endocrine Disorder: No Hx Family Neuromuscular Disorders: No Hx Family Neurologic Disorders: No Hx Family HEENT Disorders: No Hx Family Autoimmune Disorders: No Internal Medicine - H&P: Meds Aspirin [Lo-Dose Aspirin EC] 81 mg PO DAILY 05/10/17 [History] Atorvastatin Calcium [Lipitor] 20 mg PO HS 05/10/17 [History] Cranberry Conc/C/Bacill Coag [Cranberry Tablet] 1 each PO DAILY 05/10/17 [History] Ergocalciferol (VITAMIN D2) [Vitamin D] 400 unit PO DAILY 05/10/17 [History] Melatonin [Melatin] 3 mg PO HS 05/10/17 [History] Multivit-Min/FA/Lycopen/Lutein [Centrum Silver Tablet] 1 each PO DAILY 05/10/17 [History] Oxybutynin [Ditropan] 5 mg PO HS 05/10/17 [History] Amlodipine Besylate 5 mg PO DAILY 11/15/18 [History] Metoprolol Succinate [Toprol Xl] 100 mg PO DAILY 11/15/18 [History] Ranitidine HCl [Zantac 75] 75 mg PO DAILY 11/15/18 [History] Doxycycline 100 mg PO BID #20 capsule 11/23/18 [Rx] Torsemide [Demadex] 20 mg PO DAILY #30 tablet 11/23/18 [Rx] Citalopram Hydrobromide [Citalopram HBr] 10 mg PO DAILY 12/03/18 [History] Indapamide [Lozol] 2.5 mg PO DAILY 12/03/18 [History] Allergy/AdvReac Type Severity Reaction Status Date / Time ammonium lactate Allergy Rash Uncoded 12/03/18 10:23 ROS unobtainable: due to mental status All Systems PM: As in [place] per family; patient sedated now and unable to provide ROS. - Constitutional Vitals: Temp Pulse Resp BP Pulse Ox 97.3 F L 54 14 90/45 100 12/03/18 22:30 12/03/18 23:00 12/03/18 23:00 12/03/18 23:00 12/03/18 23:00 General appearance: Present: no acute distress Exam: somnolent; arousable to pain only now; maintaining and protecting airway - Head Head exam: Present: atraumatic, normal inspection - Eye Eye exam: Present: PERRL. Absent: scleral icterus - ENT ENT exam: Present: mucous membranes dry, normal exam, normal oropharynx - Neck Neck exam general surgery: Present: full ROM, supple, trachea midline. Absent: tenderness, nuchal rigidity, thyromegaly - Respiratory Respiratory exam: Present: CTAB. Absent: chest wall tenderness, rales, rhonchi, wheezes - Cardiovascular Cardiovascular exam: Present: distant heart sounds, RRR, +S1, +S2. Absent: diastolic murmur, systolic murmur - GI/Abdominal GI/Abdominal exam: Present: normal bowel sounds, soft. Absent: hepatomegaly, mass, splenomegaly, tenderness - Extremities Exam Extremities exam: Present: full ROM, normal capillary refill, warm, radial pulses palpable and symmetrical. Absent: calf tenderness, pedal edema, tenderness - Back Exam Back exam: Absent: CVA tenderness (L), CVA tenderness (R) - Neurological Exam Neurological exam: Present: altered Additional comments: somnolent due to sedation; withdraws to pain and loud verbal stimuli - Psychiatric Additional comments: unable to assess - Skin Skin exam: Present: dry, intact, warm Internal Med - H&P Results - Labs Labs: I reviewed her last my cancer Center and include the following: Sodium 117 Potassium 2.4 Chloride 77 Carbon dioxide 30 BUN 26 Creatinine 1.83 Glucose 129 - Assessment and plan (1) Encephalopathy acute Current Visit: Yes Status: Acute Assessment and plan: 1. Likely due to hyponatremia suspected gastroenteritis. 2. Patient had to be sedated in ER for combative behavior. 3. Will monitor closely and hold all mind-altering medications. 4. Will order CT head to rule out intracranial causes. 5. Monitor in seizure precautions. (2) Hyponatremia Current Visit: Yes Status: Acute Assessment and plan: 1. IVF stopped for now. Patient received one liter bolus saline and some MIV prior to my assessment. 2. Will order urine osmoles and urine sodium. 3. Will monitor every four hours. 4. Nephrology consulted. 5. Suspect due to volume depletion (vomiting and diarrhea), diuretics (demadex and Lozol), and possibly SIADH (colon cancer). (3) Hypokalemia Current Visit: Yes Status: Acute Assessment and plan: 1. Will order EKG and monitor on telemetry. 2. Will correct potassium with IV K-riders. Once awake, will order oral replacement. (4) Adenocarcinoma Current Visit: Yes Status: Chronic Assessment and plan: 1. Once fully awake and coherent, patient, family, and primary team need to discuss plan/goals of care. 2. At last hospital stay, patient refused surgery and further treatment as reported to me by family. If that is the case and patient confirms her wishes, then her wishes should be honored, even if family members disagree with her wishes. I explained that to family members and POA who were all present. They voiced understanding. (5) DVT prophylaxis Current Visit: Yes Status: Acute Assessment and plan: 1. Heparin SQ.
[2018-12-04] MEDS ORDERED: Potassium Chloride 40 MEQ, Lidocaine 1% 2 ML in D5% in Water 500 ML IVPB ONE (00:19)
[2018-12-04 00:40] LABS: Bilirubin,Urine Negative (Negative); Blood,Urine Negative (Negative); Clarity,Urine Clear (Clear); Color,Urine Yellow (Yellow); Glucose,Urine (UA) Normal (Normal); Ketones,Urine Negative (Negative); Leukocyte Esterase,Urine Negative (Negative); Nitrite,Urine Negative (Negative); PH,Urine 6.5 pH Units (5.0-8.0); Protein,Urine Negative (Neg-Trace); Specific Gravity,Urine 1.012 (1.010-1.025); Urobilinogen,Urine Normal (Normal)
--- NOTE | 2018-12-04 02:00 | Event Note ---
Date of Encounter: 12/04/18 Time of Encounter: 01:30 Called by resident (Dr. Hemphill) and RN for concerns of bradycardia and hypotension. I ordered Dopamine infusion and went to discuss with patient EDDIE (Deepali). I explained to her the situation and that she may not survive the night. I asked her about patient wishes and about CODE STATUS. EDDIE and her daughter are present. They remain reluctant to make a change in CODE STATUS until they can confer with family. For now, she will remain FULL CODE until they can discuss with family urgently. Meanwhile, they request and agree to proceed with CVC placement for Dopamine infusion and potassium replacement. If patient arrests before CODE STATUS changes, EDDIE and her daughter request we "do everything" until they discuss with family.
--- NOTE | 2018-12-04 02:35 | Procedure Note ---
<Joey Stoddard - Last Filed: 12/04/18 02:32> Date of procedure: 12/04/18 Pre-op diagnosis: symptomatic bradycardia Post-op diagnosis: same Procedure: Central Venous Catheter (CVC, Central Line) Placement Date: 12/04/18 Time: 0233 Indication: Hemodynamic monitoring/Intravenous access, symptomatic bradycardia Resident: joey stoddard Attending: Dr. Kuhn A time-out was completed verifying correct patient, procedure, site, positioning, and special equipment if applicable. The patient was placed in a dependent position appropriate for central line placement based on the vein to be cannulated. The patients right groin> was prepped and draped in sterile fashion. 1% Lidocaine was used to anesthetize the surrounding skin area. A triple lumen catheter was introduced into the the common femoral vein using the Seldinger technique and under ultrasound guidance. The catheter was threaded smoothly over the guide wire and appropriate blood return was obtained. Each lumen of the catheter was evacuated of air and flushed with sterile saline. The catheter was then sutured in place to the skin and a sterile dressing applied. Perfusion to the extremity distal to the point of catheter insertion was checked and found to be adequate. Myself, Dr. Hemphill and the attending was present for the entire procedure. Estimated Blood Loss: 5cc The patient tolerated the procedure well and there were no complications. Anesthesia: local Surgeon: Joey Stoddard Was there an front office medical assistant present: Yes Marine Engine Mechanic: Dheeraj Hemphill Estimated blood loss (cc): 5 IV fluids (cc): 0 Urine output (cc): 0 Specimen: none Pathology: none sent Condition: stable Disposition: ICU <Stiven Hammond - Last Filed: 12/04/18 03:42> Procedure: I was present and supervised during the entire procedure. Dr. Hemphill was present and assisted as well.
[2018-12-04 03:13] LABS: INR 1.1; Prothrombin Time 12.1 Seconds (9.4-12.1)
[2018-12-04 03:15] LABS: Activated Partial Thrombo Time 30.8 Seconds (26.0-36.0)
[2018-12-04 03:30] LABS: Calcium 9.5 mg/dL (8.6-10.3); Magnesium 2.9 mg/dL (1.6-2.6); Potassium 2.4 mEq/L (3.5-5.1)
--- NOTE | 2018-12-04 03:47 | Event Note ---
Date of Encounter: 12/04/18 Time of Encounter: 02:45 I met with Deepali (POA), granddaughter, and son-in-law after CVC placement and further monitoring. Deepali contacted all family members and states they all wish to keep patient FULL CODE. Given the patient's situation, I will consult palliative care to meet with family and discuss goals of care. If patient survives and exhibits medical decision making capacity, we have to honor her wishes. I expressed this to EDDIE and present family members. They all voiced agreement and understanding.
[2018-12-04] MEDS: *HR* Heparin 5,000 UNIT/ML VIAL SQ SCH ×4 (04:48→20:11)
[2018-12-04] MEDS: Pantoprazole 40 MG VIAL IVP SCH ×2 (04:49→05:46)
[2018-12-04 08:19] LABS: Calcium 9.8 mg/dL (8.6-10.3); Magnesium 2.7 mg/dL (1.6-2.6); Potassium 2.9 mEq/L (3.5-5.1)
--- NOTE | 2018-12-04 09:00 | Event Note ---
Date of Encounter: 12/04/18 Time of Encounter: 08:56 Patient was seen and examined. I agree with the progress note as written by the resident physician. Patient with history of colon cancer that is recurrent with biopsy of adenocarcinoma at the hepatic flexure grade 2 to grade 3, chronic kidney disease, A. fib not on anticoagulation who was sent from her oncologist due to abnormal labs were significant for significant hyponatremia and hypokalemia. The patient has been having loose stools for couple days. She was started on IV fluids and given potassium. Sodium was 119 and potassium 2.4 on admission. Those have improved to 125 and 2.9 respectively. Kidney function was a creatinine of 1.76 on admission and started on 1.56. Regarding her cancer she has refused repeat surgery as well as chemotherapy. Palliative is consulted. Staging and has not been able to be done due to inability to give IV contrast due to kidney function. GEN: NAD CVS: RRR. S1, S2, No m/r/g RESP: CTAB ABD: Soft, NT, ND, +BS EXT: No edema. 2+ DP. No rashes NEURO: A 2. Nonfocal Continue IV fluids and trend labs. Wean dopamine as tolerated No imaging studies of the abdomen done in the ED and I do not believe that we need to. Mental status seems to be improving but there is a CT head that is pending ordered by the night hospitalist Sent stool for GI panel including C. difficile. Patient was recently on antibiotics. Palliative consult and nephrology consult Hold diuretics DVT prophylaxis
[2018-12-04] MEDS ORDERED: Potassium Chloride 40 MEQ/200 ML BAG IVPB PRN (11:29)
--- NOTE | 2018-12-04 11:43 | Internal Med Progress Note ---
Hospitalist Progress Note - Encounter Date of Encounter: 12/04/18 Time of Encounter: 08:00 - Subjective Interval History: This morning patient is easily arousable but remained somnolent. Her speech is difficult to recognize at times. She does report she has she is at [place], and that she did not want to come here. Other than that patient is difficult to understand. - Exam Vitals: Temp Pulse Resp BP Pulse Ox 99.2 F 76 20 122/70 99 12/04/18 08:00 12/04/18 08:00 12/04/18 08:00 12/04/18 08:00 12/04/18 08:00 Exam: General: pleasant, somnolent HEENT: Head atraumatic, normocephalic, EOMI, PERRL, absent ear discharge or trauma, Neck: nontender to palpation, absent lymphadenopathy, Cardiovascualr: Regular rate and rhythm with no murmur, absent gallops or rubs, absent pedal edema, radial pulses 2 out of 4 Lungs: Clear to auscultation bilaterally, not in respiratory distress Abdomen: Soft nontender, nondistended positive bowel sounds, Skin: warm and dry, absent rash, absent open wounds and nodules MSK: absent clubbing, cyanosis, joints without swelling Neuro: Somnolent, alert t at times and oriented to self and place only. Psych: Difficult to assess due to mental status. - Assessment and Plan (1) Hyponatremia Current Visit: Yes Status: Acute Assessment and Plan: Multifactorial etiology: Vomiting, diarrhea, diuretic use Hypovolemic, hypotonic hyponatremia TSH within normal limits. Magnesium 2.7. patient is receiving IV fluids 0.9% NC at 100 mL an hour Sodium has improved from 119-125 Will continue to monitor sodium every 4 hours. Appreciate nephrology recommendations. (2) Diarrhea Current Visit: Yes Status: Acute Assessment and Plan: According to EMR patient has had multiple bouts of diarrhea Likely viral gastroenteritis. Currently she has a rectal tube Continue IV fluids. (3) Colon cancer Current Visit: Yes Status: Acute Assessment and Plan: Patient has adenocarcinoma of the colon Endoscopy report on October 2018 showed malignant tumor in the hepatic flexure She was recently evaluated by her oncologist who stated patient declined surgical removal by Dr. Marie She was also started on adjuvant chemotherapy but she quit after the first dose. Palliative care was consultative patient has declined treatments multiple times for her colon cancer. (4) Acute hypokalemia Current Visit: Yes Status: Acute Assessment and Plan: Patient has acute hypokalemia likely secondary to diarrhea Electrolyte protocol in place. Recheck every 4 hours. (5) Afib Current Visit: Yes Status: Chronic Assessment and Plan: Patient has a history of atrial fibrillation currently she is rate controlled. Not on anticoagulation due to history of GI bleed. (6) DVT prophylaxis Current Visit: Yes Status: Acute Assessment and Plan: Heparin subcutaneous (7) Encephalopathy acute Current Visit: Yes Status: Acute Assessment and Plan: Combination of metabolic encephalopathy from hyponatremia as well as malignancy. Furthermore patient was given Ativan and Benadryl and Haldol in the emergency department for agitation This is not resolving. This morning patient was able to be arousable and was awake and oriented to self and place. (8) Diastolic CHF Current Visit: Yes Status: Chronic Assessment and Plan: Patient has a history of diastolic congestive heart failure and is on torsemide at home. Were holding diuretics due to her hyponatremia and hypokalemia. - Time Spent with Patient Total time spent is greater than 50% in coordination of care (as documented) at patient's floor/unit and/or counseling patient: Internal Medicine: Result - Labs CBC & Chem 7: 12/04/18 07:14 Labs: BMP 12/03/18 12/04/18 12/04/18 23:25 02:40 07:14 Sodium 119 L* 121 L 125 L Potassium 2.4 L* 2.4 L* 2.9 L Chloride 80 L 78 L 82 L Carbon Dioxide 34 H 34 H 33 H BUN 26 H 25 H 22 Creatinine 1.76 H 1.69 H 1.56 H Glucose 85 137 H 114 H Calcium 9.4 9.5 9.8 Liver Function 12/03/18 Range/Units 23:25 Total Bilirubin 1.2 H (0.3-1.0) mg/dL AST 53 H (13-39) Units/L ALT 23 (7-52) Units/L Alkaline Phosphatase 63 (34-104) Units/L Albumin 3.4 L (3.5-5.7) g/dL Urine 12/04/18 Range/Units 00:00 Urine Color Yellow (Yellow) Urine Clarity Clear (Clear) Urine pH 6.5 (5.0-8.0) pH Units Ur Specific [place] 1.012 (1.010-1.025) Urine Protein Negative (Neg-Trace) mg/dL Urine Glucose (UA) Normal (Normal) mg/dL - ABG Interpretation ABG results: PT/INR, D-dimer PT 12.1 Seconds (9.4-12.1) 12/04/18 02:40 - Impressions Impressions Chest X-Ray 12/04/18 00:19 IMPRESSION: No acute disease. Cardiomegaly. D/ / Gaston Burgos MD / Gaston Burgos MD Interpreting Provider: Gaston Burgos MD Consult Discharge Plan - Plan Referrals: Yasmine Erwin MD [Primary Care Provider] - (2) Diarrhea Qualifiers: Diarrhea type: presumed infectious Qualified Code(s): R19.7 - Diarrhea, unspecified (3) Colon cancer Qualifiers: Colon location: hepatic flexure Qualified Code(s): C18.3 - Malignant neoplasm of hepatic flexure (5) Afib Qualifiers: Atrial fibrillation type: chronic Qualified Code(s): I48.2 - Chronic atrial fibrillation (8) Diastolic CHF Qualifiers: Heart failure chronicity: chronic Qualified Code(s): I50.32 - Chronic diastolic (congestive) heart failure
[2018-12-04 12:40] LABS: Calcium 9.4 mg/dL (8.6-10.3); Magnesium 2.4 mg/dL (1.6-2.6); Potassium 2.5 mEq/L (3.5-5.1)
[2018-12-04] MEDS: 0.9 % Sodium Chloride 1,000 ML IVC SCH (13:27)
[2018-12-04] MEDS ORDERED: Potassium Chloride Elixir 20 MEQ/15 ML UDC PO ONE (13:33)
--- NOTE | 2018-12-04 13:59 | Palliative - Consult Note ---
Date of Encounter: 12/04/18 Time of Encounter: 09:00 - Assessment and Plan (1) Goals of care, counseling/discussion Current Visit: Yes Status: Acute Assessment and plan: 35 minutes meeting with pt's Daughter Deepali (DOMINIQUE) and son Juan Carlos. Discussed current medical condition, trajectory of illness, GOC and treatment options. Family stated that pt have previously expressed her wishes to be DNRCC, be kept comfortable and in her own home as her did. Children want at this point to change code status back to DNRCC, form filled. per family, primary goal is to stabilize pt to a point where she can return home with hospice. Expressed the concern that pt may be too critical to be discharged home, but all attempts will be made. Pt is on Dopamine drip due to hypotension and bradycardia. Plan is to wean from dopamine, and if pt stable for transport will discharge home with hospice. Family requested [facility], referral made, [facility] Shaheen Merino appreciated. (2) Encephalopathy acute Current Visit: Yes Status: Acute Assessment and plan: Pt has multiple electrolyte abnormalities, that can explain AMS. Mental status somewhat improved today. (3) Hyponatremia Current Visit: Yes Status: Acute Assessment and plan: Pt receiving IVF, Na 119->125. continue to monitor (4) Diarrhea Current Visit: Yes Status: Acute Assessment and plan: Pt reportedly had diarrhea for few days. Rectal tube in place with a small amount of stool continue supportive care. Qualifiers: Diarrhea type: presumed infectious Qualified Code(s): R19.7 - Diarrhea, unspecified (5) Colon cancer Current Visit: Yes Status: Acute Assessment and plan: Patient has adenocarcinoma of the colon Endoscopy report on October 2018 showed malignant tumor in the hepatic flexure She was recently evaluated by her oncologist who stated patient declined surgery, chemo and radiations. Comfort measures only. Qualifiers: Colon location: hepatic flexure Qualified Code(s): C18.3 - Malignant neoplasm of hepatic flexure Palliative-CN HPI - Data of Consult Patient: new to practice Consult date: 12/04/18 Requesting Physician: Kris Palacios MD Primary Care Provider: Yasmine Erwin MD - Consult Narrative Palliative Care/Comfort Measures: Palliative care Reason for consult: goals of care History of present illness: Ms. Reyes is a 88 year old female with PMH of colon ca, was diagnosed with recurrence of cancer in 10/2018, and declined any treatment, including chemotherapy, radiation or surgery. History from pt's family, as pt i unable to participate in the conversation. Pt was seen by oncology today, accompanied by her children, and at the time of exam was complaining of AMS and diarrhea. Blood work were drawn in the office and she returned home. Labs showed a critical value of Na 118 and K 5.3. Pt was recalled and recommended to present to ED. Per pt's children, pt was combative as she did no want to return to the hospital and be admitted. At the time of admission, family agreed for aggressive treatment, pt was hypotensive and bradycardic, central line was placed and dopamine started, code status was changed to Full Code. Palliative care consult was called for GOC clarification. At the time of exam, pt was drowsy, but arousable. She was able to give her name, but disoriented to place. She endorsed not pain, SOB, nausea or vomiting. Patient was having diarrhea for few days, rectal tube in place with small amount of semi-formed stool. CC: Kris Palacios MD - Time Spent with Patient Time: Total time spent is greater than 50% in coordination of care (as documented) at patient's floor/unit and/or counseling patient: Time with patient: 60 minutes Past Med Surg Social Fam HX - Past Medical History Medical history: cancer, hyperlipidemia, hypertension Additional medical history: colon ca, Psychiatric history: no psych history - Past Surgical History Surgical History: colectomy Additional surgical history: CTR - Social History Smoking Status: Never smoker Smokeless Tobacco Status: No Alcohol use: none Drug use: none - Family History Father Living Status: Hx Family Cardiac Disorders: Yes Hx Family Respiratory Disorders: No Hx Family Cancer: No Hx Family GI Disorders: No Hx Family Endocrine Disorder: No Hx Family Neuromuscular Disorders: No Hx Family Neurologic Disorders: No Hx Family HEENT Disorders: No Hx Family Autoimmune Disorders: No Medications and Allergies Aspirin [Lo-Dose Aspirin EC] 81 mg PO DAILY 05/10/17 [History] Atorvastatin Calcium [Lipitor] 20 mg PO HS 05/10/17 [History] Multivit-Min/FA/Lycopen/Lutein [Centrum Silver Tablet] 1 each PO DAILY 05/10/17 [History] Oxybutynin [Ditropan] 5 mg PO HS 05/10/17 [History] Amlodipine Besylate 5 mg PO DAILY 11/15/18 [History] Metoprolol Succinate [Toprol Xl] 100 mg PO DAILY 11/15/18 [History] Ranitidine HCl [Zantac 75] 75 mg PO DAILY 11/15/18 [History] Torsemide [Demadex] 20 mg PO DAILY #30 tablet 11/23/18 [Rx] Citalopram Hydrobromide [Citalopram HBr] 10 mg PO DAILY 12/03/18 [History] Indapamide [Lozol] 2.5 mg PO DAILY 12/03/18 [History] Magnesium Oxide [Mag-Oxide Magnesium] 400 mg PO DAILY 12/04/18 [History] Allergy/AdvReac Type Severity Reaction Status Date / Time ammonium lactate Allergy Rash Uncoded 12/03/18 10:23 ROS unobtainable: due to mental status Palliative Care-Exam - Constitutional Vitals: Temp Pulse Resp BP Pulse Ox 98.2 F 82 18 122/62 99 12/04/18 12:26 12/04/18 12:00 12/04/18 12:00 12/04/18 12:00 12/04/18 12:00 General appearance: Present: average body habitus, no acute distress - Head Head Exam: Present: atraumatic - ENT ENT exam: Present: mucous membranes moist, normal exam - Neck Neck exam: Present: full ROM - Respiratory Respiratory exam: Present: CTAB. Absent: accessory muscle use, rales, wheezes - Cardiovascular Cardiovascular exam: Present: bradycardia, +S1, +S2. Absent: irregular rhythm - GI/Abdominal Exam GI/Abdominal exam: Present: soft, tenderness (RLQ) - Extremities Exam Extremities exam: Present: full ROM - Expanded Upper Extremities Exam Shoulder exam: Present: full ROM. Absent: swelling - Neurological Exam Neurological exam: Present: alert Additional comments: oriented to self, following simple commands. Internal Medicine - CN: Reslt - Labs CBC & Chem 7: 12/04/18 11:15 Labs: BMP 12/03/18 12/04/18 12/04/18 23:25 02:40 07:14 Sodium 119 L* 121 L 125 L Potassium 2.4 L* 2.4 L* 2.9 L Chloride 80 L 78 L 82 L Carbon Dioxide 34 H 34 H 33 H BUN 26 H 25 H 22 Creatinine 1.76 H 1.69 H 1.56 H Glucose 85 137 H 114 H Calcium 9.4 9.5 9.8 12/04/18 11:15 Sodium 130 L Potassium 2.5 L* Chloride 86 L Carbon Dioxide 33 H BUN 19 Creatinine 1.39 H Glucose 105 Calcium 9.4 Liver Function 12/03/18 Range/Units 23:25 Total Bilirubin 1.2 H (0.3-1.0) mg/dL AST 53 H (13-39) Units/L ALT 23 (7-52) Units/L Alkaline Phosphatase 63 (34-104) Units/L Albumin 3.4 L (3.5-5.7) g/dL Urine 12/04/18 Range/Units 00:00 Urine Color Yellow (Yellow) Urine Clarity Clear (Clear) Urine pH 6.5 (5.0-8.0) pH Units Ur Specific [place] 1.012 (1.010-1.025) Urine Protein Negative (Neg-Trace) mg/dL Urine Glucose (UA) Normal (Normal) mg/dL - ABG Interpretation ABG results: PT/INR, D-dimer PT 12.1 Seconds (9.4-12.1) 12/04/18 02:40 - Impressions Impressions Chest X-Ray 12/04/18 00:19 IMPRESSION: No acute disease. Cardiomegaly. D/ / Gaston Burgos MD / Gaston Burgos MD Interpreting Provider: Gaston Burgos MD Consult Discharge Plan - Plan Referrals: Yasmine Erwin MD [Primary Care Provider] - Palliative Quality Palliative Quality: Screen for Code Status: Yes, Screen for Goals of Care: Yes, Screen for Pain: Yes, If Pain Regimen Started, Initiate Bowel Regimen: NA, Screen for Nausea/Vomitting: Yes Code Status: 12/03/18 23:12 Resuscitation Status: Active [RES] Routine Comment: Resuscitation Status: Full Code 12/04/18 10:22 Resuscitation Status: Active [RES] Stat Comment: Resuscitation Status: DNR-Comfort Care Palliative Scale - Palliative Performance Scale How ambulatory is this patient?: Mainly in bed What is patient's level of activity and evidence of disease?: Unable to do any work, Extensive disease How much self-care assistance does patient require?: Mainly assistance How much oral intake does the patient have?: Normal or reduced What is this patient's level of consciousness?: Full or drowsy with or without confusion Palliative Performance Score: 30 %
[2018-12-04] MEDS ORDERED: D5% in Water 250 ML IVC SCH (16:15)
--- NOTE | 2018-12-04 18:30 | Electrocardiograph Report ---
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
[2018-12-04 19:33] LABS: Calcium 8.9 mg/dL (8.6-10.3); Magnesium 2.3 mg/dL (1.6-2.6); Potassium 3.2 mEq/L (3.5-5.1)
--- NOTE | 2018-12-05 02:32 | Nephrology Progress Note ---
Date of Encounter: 12/04/18 Time of Encounter: 09:30 - Assessment and Plan (1) Hyponatremia Current Visit: Yes Status: Acute The patient presents with acute hyponatremia associated with decreased oral intake. She has responded to gentle saline. Continue with current therapy and slow correction of her sodium. Recommend palliative consult. (2) Hypokalemia Current Visit: Yes Status: Acute Replace per protocol (3) Leukocytosis Current Visit: No Status: Acute Qualifiers: Qualified Code(s): D72.829 - Elevated white blood cell count, unspecified (4) Adenocarcinoma Current Visit: Yes Status: Chronic Subjective Principal diagnosis: hyponatremia Interval history: Patient seen. She was asleep. Objective - Vital Signs Vital signs: Vital Signs Temp Pulse Resp BP Pulse Ox 12/05/18 00:17 98.3 F 12/04/18 20:39 97.9 F 12/04/18 20:20 75 12/04/18 20:00 68 18 110/57 96 12/04/18 17:23 99.1 F 12/04/18 16:00 81 18 127/67 97 12/04/18 15:00 81 12/04/18 12:26 98.2 F 12/04/18 12:00 82 18 122/62 99 12/04/18 11:00 82 12/04/18 08:00 99.2 F 76 20 122/70 99 12/04/18 07:00 76 12/04/18 06:00 75 16 126/69 96 12/04/18 05:42 73 16 133/68 98 12/04/18 05:00 65 16 123/71 98 12/04/18 04:00 62 14 127/56 97 12/04/18 03:00 96.6 F L 64 14 130/68 96 Intake and Output 12/04/18 12/04/18 12/05/18 15:59 23:59 07:59 Intake Total 185 / 185 270 / 270 Output Total 2400 / 2400 600 / 600 250 / 250 Balance -2215 / -2215 -330 / -330 -250 / -250 Intake: IV Fluids 185 / 185 270 / 270 Dextrose 5% 250 ML @ Wide Open 250 / 250 IVC .Q0M [facility] Rx#:[id number] DOPamine Premix 400mg/250mL 400 185 / 185 20 / 20 mg In 250 ml @ 2.5 MCG/KG/MIN 6.45 mls/hr IVC .Q24H [facility] Rx#: [id number] Oral 0 / 0 Output: Rectal Tube 50 / 50 0 / 0 Catheter 2400 / 2400 550 / 550 250 / 250 Other: Blood Glucose* 98 85 - General Appearance General appearance: Present: well-developed, well-nourished EENT: Present: ATNC Cardiology: Present: regular rate Integumentary: Present: warm and dry - Lab 12/04/18 18:46 Most recent lab results Calcium 8.9 mg/dL (8.6-10.3) 12/04/18 18:46 Magnesium 2.3 mg/dL (1.6-2.6) 12/04/18 18:46 Urine Sodium 42.9 mEq/L 12/04/18 00:00 Consult Discharge Plan - Plan Referrals: Yasmine Erwin MD [Primary Care Provider] -
[2018-12-05] MEDS: 0.9 % Sodium Chloride 1,000 ML IVC SCH (04:16)
[2018-12-05] MEDS: Pantoprazole 40 MG VIAL IVP SCH (04:17)
[2018-12-05] MEDS: *HR* Heparin 5,000 UNIT/ML VIAL SQ SCH ×3 (04:17→20:38)
[2018-12-05 04:38] LABS: Calcium 9.1 mg/dL (8.6-10.3); Magnesium 2.3 mg/dL (1.6-2.6); Potassium 3.4 mEq/L (3.5-5.1)
--- NOTE | 2018-12-05 08:48 | Internal Med Progress Note ---
<Rashmi Dalal M - Last Filed: 12/05/18 16:57> Hospitalist Progress Note - Encounter Date of Encounter: 12/05/18 Time of Encounter: 09:50 - Subjective Interval History: Patient is more interactive and talkative. Family at bedside. She is eating breakfast. She has no complaints. Discussed with patient and family again goals of care. Dopamine was discontinued this morning and vitals have remained stable. - Exam Vitals: Temp Pulse Resp BP Pulse Ox 97.6 F 75 18 110/57 96 12/05/18 07:40 12/04/18 20:20 12/04/18 20:00 12/04/18 20:00 12/04/18 20:00 Exam: Gen: alert and oriented, no acute distress, eating breakfast Head: normocephalic, atraumatic Eyes: normal conjunctiva, no scleral icterus ENT: oral mucosa moist Neck: trachea midline, supple Cardiac: regular rate and rhythm, no murmur Respiratory: clear to auscultation bilaterally, no wheezing Abdomen: soft, nontender, nondistended extremities: no calf tenderness, no pitting edema Neuro: awake and alert to person and place. Skin: warm and dry - Assessment and Plan (1) Hyponatremia Current Visit: Yes Status: Acute Assessment and Plan: Likely multifactorial secondary to vomiting and diarrhea, diuretic use Hypovolemic, hypotonic hyponatremia TSH within normal limits. Magnesium 2.7. Continue IV fluids 0.9% NC at 100 mL an hour Sodium has improved from 119-129 Patient tolerating PO diet. Nephrology following, appreciate their recommendations Plan is for discharge home with hospice care tomorrow, [facility]. Supplemental oxygen discontinued. DNRCC (2) Hypokalemia Current Visit: Yes Status: Acute Assessment and Plan: Likely secondary to diarrhea Improving. K+ 3.4 today (3) Encephalopathy acute Current Visit: Yes Status: Resolved Assessment and Plan: Likely secondary to metabolic encephalopathy from hyponatremia and malignancy Received ativan, benadryl, haldol in the ER for agitation. Much more alert and responsive today. Answering questions appropriately, eating, and talking with family. (4) Diarrhea Current Visit: Yes Status: Acute Assessment and Plan: Likely due to viral gastroenteritis improving. rectal tube removed Patient tolerating PO. IVFs discontinued. (5) Afib Current Visit: Yes Status: Chronic Assessment and Plan: Rate controlled. Not on anticoagulation due to history of GIB (6) Colon cancer Current Visit: Yes Status: Acute Assessment and Plan: Adenocarcinoma of the colon, recurrent Endoscopy report on October 2018 showed malignant tumor in the hepatic flexure She was recently evaluated by her oncologist who stated patient declined surgical removal by Dr. Marie She was also started on adjuvant chemotherapy but she quit after the first dose. Palliative care following. Appreciate their recommendations. Plan is to d ischarge home with hospice. DNRCC (7) Diastolic CHF Current Visit: Yes Status: Chronic Assessment and Plan: Patient has a history of diastolic congestive heart failure and is on torsemide at home. Continue to hold diuretics due to hyponatremia and hypokalemia. DVT Prophylaxis: subq heparin - Time Spent with Patient Total time spent is greater than 50% in coordination of care (as documented) at patient's floor/unit and/or counseling patient: Plan of Care Discussed with: family Internal Medicine: Result - Labs CBC & Chem 7: 12/05/18 04:00 Labs: BMP 12/04/18 12/04/18 12/05/18 11:15 18:46 04:00 Sodium 130 L 129 L 129 L Potassium 2.5 L* 3.2 L D 3.4 L Chloride 86 L 89 L 90 L Carbon Dioxide 33 H 34 H 35 H BUN 19 17 16 Creatinine 1.39 H 1.44 H 1.32 H Glucose 105 113 H 93 Calcium 9.4 8.9 9.1 - ABG Interpretation ABG results: PT/INR, D-dimer PT 12.1 Seconds (9.4-12.1) 12/04/18 02:40 Consult Discharge Plan - Plan Referrals: Yasmine Erwin MD [Primary Care Provider] - <James Sierra - Last Filed: 12/05/18 18:55> Hospitalist Progress Note - Encounter Date of Encounter: 12/05/18 - Exam Vitals: Temp Pulse Resp BP Pulse Ox 98.6 F 96 14 144/114 95 12/05/18 18:29 12/05/18 18:29 12/05/18 18:29 12/05/18 18:29 12/05/18 18:29 - Assessment and Plan (1) Hyponatremia Current Visit: Yes Status: Acute (2) Encephalopathy acute Current Visit: Yes Status: Resolved (3) Colon cancer Current Visit: Yes Status: Acute (4) Diarrhea Current Visit: Yes Status: Acute (5) Goals of care, counseling/discussion Current Visit: Yes Status: Acute - Time Spent with Patient Total time spent is greater than 50% in coordination of care (as documented) at patient's floor/unit and/or counseling patient: Internal Medicine: Result - Labs CBC & Chem 7: 12/05/18 04:00 Labs: BMP 12/04/18 12/05/18 18:46 04:00 Sodium 129 L 129 L Potassium 3.2 L D 3.4 L Chloride 89 L 90 L Carbon Dioxide 34 H 35 H BUN 17 16 Creatinine 1.44 H 1.32 H Glucose 113 H 93 Calcium 8.9 9.1 - ABG Interpretation ABG results: PT/INR, D-dimer PT 12.1 Seconds (9.4-12.1) 12/04/18 02:40 - Attending Attestation I examined this patient and my medical decision-making was reviewed with the Resident Physician. I agree with the documented findings, disposition and treatment plan as described except to the extent set forth below. <Rashmi Dalal - Last Filed: 12/05/18 16:57> (4) Diarrhea Qualifiers: Diarrhea type: presumed infectious Qualified Code(s): R19.7 - Diarrhea, unspecified (5) Afib Qualifiers: Atrial fibrillation type: chronic Qualified Code(s): I48.2 - Chronic atrial fibrillation (6) Colon cancer Qualifiers: Colon location: hepatic flexure Qualified Code(s): C18.3 - Malignant neoplasm of hepatic flexure (7) Diastolic CHF Qualifiers: Heart failure chronicity: chronic Qualified Code(s): I50.32 - Chronic diastolic (congestive) heart failure <James Sierra - Last Filed: 12/05/18 18:55> (3) Colon cancer Qualifiers: Colon location: hepatic flexure Qualified Code(s): C18.3 - Malignant neoplasm of hepatic flexure (4) Diarrhea Qualifiers: Diarrhea type: presumed infectious Qualified Code(s): R19.7 - Diarrhea, unspecified
--- NOTE | 2018-12-05 10:30 | Palliative Progress Note ---
<Juan Carlos Raines - Last Filed: 12/05/18 10:50> Date of Encounter: 12/05/18 Time of Encounter: 09:45 - Assessment and plan (1) Goals of care, counseling/discussion Current Visit: Yes Status: Acute Assessment and plan: Case was discussed with the patient's daughter Deepali (DOMINIQUE) and son Juan Carlos at bedside. Patient wishes to be DNRCC, kept comfortable, and allowed to pass away in her own home as her did. DNRCC form was filled out and signed. Patient expressed the desire to possibly stay in the hospital 1 more day to get stronger before going home with [facility]. Patient has been weaned from the Dopamine ggt, BP remains stable, and supplemental oxygen was discontinued today. If patient remains stable and is cleared for transfer by the medicine team, social worker health services will arrange transport to home with [facility]. (2) Hyponatremia Current Visit: Yes Status: Acute Assessment and plan: Hypovolemic hyponatremia the setting of diarrhea Serum sodium improved from 117 to 129 over the past 48 hours Continue gentle IV hydration per nephrology recommendations Continue to monitor (3) Diarrhea Current Visit: Yes Status: Acute Assessment and plan: Patient presented with diarrhea ongoing for a few days prior to arrival Rectal tube remains in place with a small amount of liquid stool Consider removing rectal tube and continue supportive care Qualifiers: Diarrhea type: presumed infectious Qualified Code(s): R19.7 - Diarrhea, uns pecified (4) Colon cancer Current Visit: Yes Status: Acute Assessment and plan: Colonoscopy on 11/20/18 revealed 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 Continue comfort measures only Qualifiers: Colon location: hepatic flexure Qualified Code(s): C18.3 - Malignant neoplasm of hepatic flexure (5) Encephalopathy acute Current Visit: Yes Status: Resolved Assessment and plan: Resolved. Acute metabolic encephalopathy etiology was likely due to multiple electrolyte abnormalities. Do not recommend further blood work. - Time Spent With Patient Total time spent is greater than 50% in coordination of care (as documented) at patient's floor/unit and/or counseling patient: - Subjective Interval history: Patient seen and examined resting comfortably in bed eating breakfast. Patient is alert and conversant this morning. She is now off the dopamine drip and remains on 3 L supplemental oxygen via nasal cannula. Case was discussed with the patient's daughter Deepali (DOMINIQUE) and son Juan Carlos at bedside. Patient expressed the desire to possibly stay in the hospital 1 more day to get stronger before going home with [facility]. - Constitutional Vitals: Abnormal lab results Sodium 129 mEq/L (136-145) L 12/05/18 04:00 Potassium 3.4 mEq/L (3.5-5.1) L 12/05/18 04:00 Chloride 90 mEq/L (98-107) L 12/05/18 04:00 Carbon Dioxide 35 mEq/L (23-29) H 12/05/18 04:00 Creatinine 1.32 mg/dL (0.60-1.20) H 12/05/18 04:00 Est GFR ( Amer) 46 (> 60) L 12/05/18 04:00 Est GFR (Non-Af Amer) 38 (> 60) L 12/05/18 04:00 Serum Osmolality 255 mOsm/kg (280-300) L 12/03/18 23:25 Calculated Osmolality 269 (280-300) L 12/05/18 04:00 Total Bilirubin 1.2 mg/dL (0.3-1.0) H 12/03/18 23:25 AST 53 Units/L (13-39) H 12/03/18 23:25 Serum Total Protein 6.3 g/dL (6.4-8.9) L 12/03/18 23:25 Albumin 3.4 g/dL (3.5-5.7) L 12/03/18 23:25 Urine Osmolality 228 mOsm/kg (300-1090) L 12/04/18 00:00 General appearance: Present: average body habitus, cooperative, no acute distress - Head Head exam: Present: atraumatic, normocephalic - Eye Eye exam: Present: EOMI, sclera anicteric - ENT ENT exam: Present: mucous membranes moist, normal exam - Neck Neck exam: Present: full ROM, normal inspection - Respiratory Respiratory exam: Present: CTAB. Absent: accessory muscle use, rales, respiratory distress, wheezes Additional comments: Wearing 3 L supplemental oxygen - Cardiovascular Cardiovascular exam: Present: +S1, +S2, tachycardia. Absent: irregular rhythm - GI/Abdominal GI/Abdominal exam: Present: normal bowel sounds, soft, tenderness (RLQ). Absent: distended, guarding - Rectal Additional comments: rectal tube in place - Additional comments: Melendez in place - Extremities Exam Extremities exam: Present: full ROM, tenderness. Absent: pedal edema - Back Exam Back exam: Present: normal inspection. Absent: paraspinal tenderness, tenderness - Neurological Exam Neurological exam: Present: alert (Oriented to self, responds appropriately to questions, follows simple commands), no focal deficits, strengths equal and symetr throughout. Absent: altered, facial droop, speech deficit - Psychiatric Psychiatric exam: Present: normal affect, normal mood - Skin Skin exam: Present: dry, erythema (Chronic venous stasis bilateral lower extremities), normal color Palliative Quality Palliative Quality: Screen for Code Status: Yes, Screen for Goals of Care: Yes, Screen for Pain: Yes, If Pain Regimen Started, Initiate Bowel Regimen: NA, Screen for Nausea/Vomitting: Yes Code Status: 12/03/18 23:12 Resuscitation Status: Active [RES] Routine Comment: Resuscitation Status: Full Code 12/04/18 10:22 Resuscitation Status: Active [RES] Stat Comment: Resuscitation Status: DNR-Comfort Care - Labs CBC & Chem 7: 12/05/18 04:00 Labs: Laboratory Results - last 24 hr 12/04/18 12/04/18 12/04/18 05:36 11:15 11:26 Sodium 130 L Potassium 2.5 L* Chloride 86 L Carbon Dioxide 33 H BUN 19 Creatinine 1.39 H Est GFR ( Amer) 43 L Est GFR (Non-Af Amer) 36 L BUN/Creatinine Ratio 14 Glucose 105 POC Glucose 134 H 98 Calculated Osmolality 273 L Calcium 9.4 Magnesium 2.4 12/04/18 12/04/18 12/05/18 18:46 23:49 04:00 Sodium 129 L 129 L Potassium 3.2 L D 3.4 L Chloride 89 L 90 L Carbon Dioxide 34 H 35 H BUN 17 16 Creatinine 1.44 H 1.32 H Est GFR ( Amer) 42 L 46 L Est GFR (Non-Af Amer) 34 L 38 L BUN/Creatinine Ratio 12 12 Glucose 113 H 93 POC Glucose 85 Calculated Osmolality 270 L 269 L Calcium 8.9 9.1 Magnesium 2.3 2.3 - ABG Interpretation ABG results: PT/INR, D-dimer PT 12.1 Seconds (9.4-12.1) 12/04/18 02:40 - Pulse Oximetry Interpretation Digit-Finger O2 Sat by Pulse Oximetry: 96 (on 3 L supplemental oxygen via nasal cannula) Actions taken: other (turned off O2) Palliative Scale - Palliative Performance Scale How ambulatory is this patient?: Mainly in bed What is patient's level of activity and evidence of disease?: Unable to do any work, Extensive disease How much self-care assistance does patient require?: Mainly assistance How much oral intake does the patient have?: Normal or reduced What is this patient's level of consciousness?: Full or drowsy with or without confusion Palliative Performance Score: 30 % Consult Discharge Plan - Plan Referrals: Yasmine Erwin MD [Primary Care Provider] - <Sharri Kuhn - Last Filed: 12/05/18 14:52> Date of Encounter: 12/05/18 - Assessment and plan (1) Goals of care, counseling/discussion Current Visit: Yes Status: Acute (2) Encephalopathy acute Current Visit: Yes Status: Resolved (3) Hyponatremia Current Visit: Yes Status: Acute (4) Diarrhea Current Visit: Yes Status: Acute Qualifiers: Diarrhea type: presumed infectious Qualified Code(s): R19.7 - Diarrhea, unspecified (5) Colon cancer Current Visit: Yes Status: Acute Qualifiers: Colon location: hepatic flexure Qualified Code(s): C18.3 - Malignant neoplasm of hepatic flexure - Time Spent With Patient Total time spent is greater than 50% in coordination of care (as documented) at patient's floor/unit and/or counseling patient: - Constitutional Vitals: Abnormal lab results Sodium 129 mEq/L (136-145) L 12/05/18 04:00 Potassium 3.4 mEq/L (3.5-5.1) L 12/05/18 04:00 Chloride 90 mEq/L (98-107) L 12/05/18 04:00 Carbon Dioxide 35 mEq/L (23-29) H 12/05/18 04:00 Creatinine 1.32 mg/dL (0.60-1.20) H 12/05/18 04:00 Est GFR ( Amer) 46 (> 60) L 12/05/18 04:00 Est GFR (Non-Af Amer) 38 (> 60) L 12/05/18 04:00 Serum Osmolality 255 mOsm/kg (280-300) L 12/03/18 23:25 Calculated Osmolality 269 (280-300) L 12/05/18 04:00 Total Bilirubin 1.2 mg/dL (0.3-1.0) H 12/03/18 23:25 AST 53 Units/L (13-39) H 12/03/18 23:25 Serum Total Protein 6.3 g/dL (6.4-8.9) L 12/03/18 23:25 Albumin 3.4 g/dL (3.5-5.7) L 12/03/18 23:25 Urine Osmolality 228 mOsm/kg (300-1090) L 12/04/18 00:00 - Attending Attestation I performed a history and physical examination of the patient and discussed his management with the resident. I reviewed the residents note and agree with the documented findings and plan of care, except as follow: Pt today was alert and oriented, sitting in bed and eating breakfast. Electrolytes improved. She stated to be feeling better, is aware of her medical condition and the fact that she has colon cancer and that she does not want any treatment. Pt was agreeable to remain in the hospital until medically stable before discharge. Family was at the bedside, very pleased with her improvement. Goals is medical optimization, then d/c home with [facility]. patient remains DNRCC. Case discussed with primary hospitalist Dr. Sierra Palliative Quality Code Status: 12/03/18 23:12 Resuscitation Status: Active [RES] Routine Comment: Resuscitation Status: Full Code 12/04/18 10:22 Resuscitation Status: Active [RES] Stat Comment: Resuscitation Status: DNR-Comfort Care - Labs CBC & Chem 7: 12/05/18 04:00 Labs: Laboratory Results - last 24 hr 12/04/18 12/04/18 12/04/18 05:36 11:26 18:46 Sodium 129 L Potassium 3.2 L D Chloride 89 L Carbon Dioxide 34 H BUN 17 Creatinine 1.44 H Est GFR ( Amer) 42 L Est GFR (Non-Af Amer) 34 L BUN/Creatinine Ratio 12 Glucose 113 H POC Glucose 134 H 98 Calculated Osmolality 270 L Calcium 8.9 Magnesium 2.3 12/04/18 12/05/18 23:49 04:00 Sodium 129 L Potassium 3.4 L Chloride 90 L Carbon Dioxide 35 H BUN 16 Creatinine 1.32 H Est GFR ( Amer) 46 L Est GFR (Non-Af Amer) 38 L BUN/Creatinine Ratio 12 Glucose 93 POC Glucose 85 Calculated Osmolality 269 L Calcium 9.1 Magnesium 2.3 - ABG Interpretation ABG results: PT/INR, D-dimer PT 12.1 Seconds (9.4-12.1) 12/04/18 02:40
[2018-12-05] MEDS ORDERED: Acetaminophen 325 MG TABLET PO PRN (11:49)
[2018-12-05] MEDS ORDERED: *HR* LORazepam 2 MG/ML VIAL IVP PRN (11:49)
[2018-12-06 04:31] LABS: BUN/Creatinine Ratio 13 (6-26); Blood Urea Nitrogen 12 mg/dL (8-23); Calcium 8.5 mg/dL (8.6-10.3); Carbon Dioxide 28 mEq/L (23-29); Chloride 82 mEq/L (98-107); Glucose 158 mg/dL (70-105); Osmolality,Calculated 251 (280-300); Potassium 3.2 mEq/L (3.5-5.1); Sodium 119 mEq/L (136-145); eGFR For Non-African Americans 56 (> 60)
[2018-12-06] MEDS ORDERED: 0.9 % Sodium Chloride 1,000 ML IVC SCH (05:30)
[2018-12-06] MEDS: *HR* Heparin 5,000 UNIT/ML VIAL SQ SCH ×2 (05:54→13:08)
--- NOTE | 2018-12-06 05:54 | Event Note ---
Date of Encounter: 12/06/18 Time of Encounter: 04:35 Alerted by patient's nurse RAMESH Felder that patient had critical lab sodium of 119. Previous sodium is 129. Patient had changed CODE STATUS to DNR CC and will be discharging today with hospice. Reviewed palliative and nephrology notes. Nephrology notes recommend gentle IV hydration to manage hyponatremia. 100 mL's per hour of 0.9 ordered per nephrology's recommendations. Patient wishes to be discharged home to as her did when she is deemed fit to be transferred home.
--- NOTE | 2018-12-06 08:07 | Internal Med Progress Note ---
Hospitalist Progress Note - Encounter Date of Encounter: 12/06/18 - Exam Vitals: Temp Pulse Resp BP Pulse Ox 98.1 F 100 15 121/66 92 12/06/18 06:04 12/06/18 06:04 12/06/18 06:04 12/06/18 06:04 12/06/18 06:04 - Assessment and Plan (1) Hyponatremia Current Visit: Yes Status: Acute (2) Hypokalemia Current Visit: Yes Status: Acute (3) Encephalopathy acute Current Visit: Yes Status: Resolved (4) Diarrhea Current Visit: Yes Status: Acute (5) Afib Current Visit: Yes Status: Chronic (6) Colon cancer Current Visit: Yes Status: Acute (7) Diastolic CHF Current Visit: Yes Status: Chronic - Time Spent with Patient Total time spent is greater than 50% in coordination of care (as documented) at patient's floor/unit and/or counseling patient: Internal Medicine: Result - Labs CBC & Chem 7: 12/06/18 03:27 Labs: BMP 12/06/18 03:27 Sodium 119 L* D Potassium 3.2 L Chloride 82 L Carbon Dioxide 28 BUN 12 Creatinine 0.95 Glucose 158 H Calcium 8.5 L - ABG Interpretation ABG results: PT/INR, D-dimer PT 12.1 Seconds (9.4-12.1) 12/04/18 02:40 Consult Discharge Plan - Plan Referrals: Yasmine Erwin MD [Primary Care Provider] - (4) Diarrhea Qualifiers: Diarrhea type: presumed infectious Qualified Code(s): R19.7 - Diarrhea, unspecified (5) Afib Qualifiers: Atrial fibrillation type: chronic Qualified Code(s): I48.2 - Chronic atrial fibrillation (6) Colon cancer Qualifiers: Colon location: hepatic flexure Qualified Code(s): C18.3 - Malignant neoplasm of hepatic flexure (7) Diastolic CHF Qualifiers: Heart failure chronicity: chronic Qualified Code(s): I50.32 - Chronic diastolic (congestive) heart failure
[2018-12-06 10:55] VITALS: BP 131/70
--- NOTE | 2018-12-06 13:34 | Discharge Summary ---
<Rashmi Dalal M - Last Filed: 12/06/18 14:21> - NOTES TO OUTPATIENT PROVIDER Notes to Outpatient Provider: home hospice care. fluid restriction of 2L per day Orders not resulted at time of discharge: Pending orders 12/04/18 02:35 Culture,Blood [BC] Stat 12/04/18 06:00 ECG 12 lead ECG [ECG] AM 0600 Date of Encounter: 12/06/18 Time of Encounter: 09:05 - Discharge Diagnosis (1) Hyponatremia Priority: Primary Status: Acute (2) Hypokalemia Priority: Secondary Status: Acute (3) Encephalopathy acute Priority: Secondary Status: Resolved (4) Diarrhea Priority: Secondary Status: Resolved Qualifiers: Diarrhea type: presumed infectious Qualified Code(s): R19.7 - Diarrhea, unspecified (5) Afib Priority: Secondary Status: Chronic Qualifiers: Atrial fibrillation type: chronic Qualified Code(s): I48.2 - Chronic atrial fibrillation (6) Colon cancer Priority: Secondary Status: Acute Qualifiers: Colon location: hepatic flexure Qualified Code(s): C18.3 - Malignant neoplasm of hepatic flexure (7) Diastolic CHF Priority: Secondary Status: Chronic Qualifiers: Heart failure chronicity: chronic Qualified Code(s): I50.32 - Chronic diastolic (congestive) heart failure (8) Acute kidney injury Priority: Secondary Status: Resolved Hospital course: Ms. Reyes is a 88 year old female with past medical history including atrial fibrillation, diastolic heart failure, recurrent adenocarcinoma of the colon, presenting to the ER on 12/03/2018 with altered mental status and concerns of critical lab. The patient has been recently diagnosed with recurrent colon cancer and the patient refused surgery and any further intervention. The patient was critically hyponatremic and hypokalemic he with sodium of 119 and potassium 2.4. She was noted to be increasingly confused and combative. She was admitte d for further management. Started on dopamine drip for hypotension, which was eventually discontinued. The patient has also had nausea, vomiting, diarrhea. Patient received IV fluids with normal saline as well as potassium supplementation. The hyponatremia is likely multifactorial secondary to vomiting and diarrhea diuretic use. Hypokalemia is also secondary to diarrhea. Her mentation gradually improved back to baseline. Palliative care with consultation and the patient transitioned from full code to DNR CC. Hospice care was also discussed and the patient has been accepted to [facility] hospice services. Nephrology was also consulted due to hyponatremia. We continued gentle hydration with improvement in sodium to 129. However overnight, the patient did drink 3 L of water and this morning, her sodium was 119. Gentle hydration with normal saline was restarted in this afternoon her sodium is 122. The patient remained alert and oriented, eating breakfast and conversive. Blood pressures and bradycardia improved since admission and remained stable after dopamine drip discontinued. The patient and family would like to go home this afternoon. Discussed the plan of care with the palliative team. All of her medications will be discontinued and the patient will go home with hospice this afternoon. Discharge discussed with: patient, family, other (palliative care team) - Time Spent with Patient Total time spent providing and/or coordinating discharge services: - Discharge Medications Allergies/Adverse Reactions: Allergy/AdvReac Type Severity Reaction Status Date / Time ammonium lactate Allergy Rash Uncoded 12/03/18 10:23 Date of admission: 12/03/18 23:12 Primary care physician: Yasmine Erwin MD Consults: 12/03/18 18:43 Consult to Nephrology [CONS] Stat Consulting Provider: Kidney Yelena/JOHN/OSIEL/JAH Reason for Consult: Hyponatremia Time Notified: 18:43 Call Completed: Yes 12/04/18 03:47 Consult to Palliative Care [CONS] Routine Comment: Consulting Provider: Palliative Care Yelena Reason for Consult: goals of care counseling Call Completed: No Discharging clinician: Rashmi Dalal Anticipated date of discharge: 12/06/18 - Constitutional Vitals: Temp Pulse Resp BP Pulse Ox 99.0 F 108 15 131/70 95 12/06/18 10:46 12/06/18 10:46 12/06/18 10:46 12/06/18 10:46 12/06/18 10:46 General appearance: Present: A&O X 2, no acute distress Exam: Gen: alert and oriented, no acute distress, eating breakfast, talking with family. Head: normocephalic, atraumatic Eyes: normal conjunctiva, no scleral icterus, EOMI ENT: oral mucosa moist Neck: trachea midline Cardiac: RRR, normal S1, S2 Respiratory: CTA bilaterally, no wheezing Abdomen: soft, nontender, nondistended Extremities: full ROM, normal capillary refill, bilateral radial pulses equal Neuro: awake and alert to person and place. Skin: warm and dry - Patient Status Disposition: Hospice - Home Condition: Fair Functional capacity at discharge: uses cane/walker Overall status at discharge: patient is not back to baseline - Discharge Instructions Instructions: Hospice Care (GEN) Follow Up With: Yasmine Erwin MD [Primary Care Provider] - Additional Instructions: You can stop all of your medications. Fluid restriction of 2L. - Diet and Activity Activity: resume usual activities as tolerated Diet: advance to your usual diet <James Sierra - Last Filed: 12/06/18 18:48> Orders not resulted at time of discharge: Pending orders 12/04/18 02:35 Culture,Blood [BC] Stat Date of Encounter: 12/06/18 - Discharge Diagnosis (1) Hyponatremia Status: Acute (2) Encephalopathy acute Status: Resolved (3) Colon cancer Status: Acute Qualifiers: Colon location: hepatic flexure Qualified Code(s): C18.3 - Malignant neoplasm of hepatic flexure (4) Diarrhea Status: Resolved Qualifiers: Diarrhea type: presumed infectious Qualified Code(s): R19.7 - Diarrhea, unspecified (5) Goals of care, counseling/discussion Status: Acute Hospital course: Ms. Reyes is a 88 year old female - Time Spent with Patient Total time spent providing and/or coordinating discharge services: Date of admission: 12/03/18 23:12 Primary care physician: Yasmine Erwin MD Consults: 12/03/18 18:43 Consult to Nephrology [CONS] Stat Consulting Provider: Kidney Yelena/JOHN/OSIEL/JAH Reason for Consult: Hyponatremia Time Notified: 18:43 Call Completed: Yes 12/04/18 03:47 Consult to Palliative Care [CONS] Routine Comment: Consulting Provider: Palliative Care Yelena Reason for Consult: goals of care counseling Call Completed: No - Constitutional Vitals: Temp Pulse Resp BP Pulse Ox 99.0 F 108 15 131/70 95 12/06/18 10:46 12/06/18 10:46 12/06/18 10:46 12/06/18 10:46 12/06/18 10:46 - Attending Attestation I examined this patient and my medical decision-making was reviewed with the Resident Physician. I agree with the documented findings, disposition and treatment plan as described except to the extent set forth below.
--- NOTE | 2018-12-06 14:01 | Palliative Progress Note ---
<Juan Carlos Raines - Last Filed: 12/06/18 14:09> Date of Encounter: 12/06/18 Time of Encounter: 12:55 - Assessment and plan (1) Goals of care, counseling/discussion Status: Acute Assessment and plan: Case was discussed with the patient's daughter Deepali (DOMINIQUE) and son Juan Carlos at bedside. Patient wishes to be DNRCC, kept comfortable, and allowed to pass away in her own home as her did. DNRCC form was filled out and signed. Patient expressed the desire to return home with [facility]. Patient has been weaned from the Dopamine ggt, Na level has improved, BP remains stable, and supplemental oxygen was discontinued. Patient remains stable and is cleared for transfer home, social human services assistants will arrange transport to home with [facility]. 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 Continue comfort measures only (5) Encephalopathy acute Status: Resolved Assessment and plan: Resolved. Acute metabolic encephalopathy etiology was likely due to multiple electrolyte abnormalities. Do not recommend further blood work. - Time Spent With Patient Total time spent is greater than 50% in coordination of care (as documented) at patient's floor/unit and/or counseling patient: - Subjective Interval history: Patient seen and examined resting comfortably in bed eating breakfast. Patient is alert and conversant this morning. She is off the dopamine drip and supplemental oxygen. Na level has improved. Case was discussed with the patient's daughter Deepali (DOMINIQUE) and son Juan Carlos at bedside. Patient expressed the desire go home with [facility]. - Constitutional Vitals: Abnormal lab results Sodium 122 mEq/L (136-145) L 12/06/18 11:09 Potassium 3.2 mEq/L (3.5-5.1) L 12/06/18 03:27 Chloride 82 mEq/L (98-107) L 12/06/18 03:27 Est GFR (Non-Af Amer) 56 (> 60) L 12/06/18 03:27 Glucose 158 mg/dL (70-105) H 12/06/18 03:27 POC Glucose 103 mg/dL (70-99) H 12/05/18 11:29 Serum Osmolality 255 mOsm/kg (280-300) L 12/03/18 23:25 Calculated Osmolality 251 (280-300) L 12/06/18 03:27 Calcium 8.5 mg/dL (8.6-10.3) L 12/06/18 03:27 Total Bilirubin 1.2 mg/dL (0.3-1.0) H 12/03/18 23:25 AST 53 Units/L (13-39) H 12/03/18 23:25 Serum Total Protein 6.3 g/dL (6.4-8.9) L 12/03/18 23:25 Albumin 3.4 g/dL (3.5-5.7) L 12/03/18 23:25 Urine Osmolality 228 mOsm/kg (300-1090) L 12/04/18 00:00 General appearance: Present: average body habitus, cooperative, no acute distress, obese - Head Head exam: Present: atraumatic, normocephalic - Eye Eye exam: Present: EOMI, sclera anicteric - ENT ENT exam: Present: mucous membranes moist, normal exam - Neck Neck exam: Present: full ROM, normal inspection. Absent: tenderness - Respiratory Respiratory exam: Present: CTAB. Absent: respiratory distress, rhonchi, wheezes - Cardiovascular Cardiovascular exam: Present: +S1, +S2, tachycardia - GI/Abdominal GI/Abdominal exam: Present: normal bowel sounds, soft, tenderness (mild RLQ). Absent: guarding - Extremities Exam Extremities exam: Present: normal inspection. Absent: pedal edema - Back Exam Back exam: Present: normal inspection. Absent: paraspinal tenderness, tenderness - Psychiatric Psychiatric exam: Present: normal affect, normal mood - Skin Skin exam: Present: dry, warm Palliative Quality Palliative Quality: Screen for Code Status: Yes, Screen for Goals of Care: Yes, Screen for Pain: Yes, If Pain Regimen Started, Initiate Bowel Regimen: NA, Screen for Nausea/Vomitting: Yes Code Status: 12/03/18 23:12 Resuscitation Status: Active [RES] Routine Comment: Resuscitation Status: Full Code 12/04/18 10:22 Resuscitation Status: Active [RES] Stat Comment: Resuscitation Status: DNR-Comfort Care - Labs CBC & Chem 7: 12/06/18 11:09 Labs: Laboratory Results - last 24 hr 12/05/18 12/06/18 12/06/18 11:29 03:27 11:09 Sodium 119 L* D 122 L Potassium 3.2 L Chloride 82 L Carbon Dioxide 28 BUN 12 Creatinine 0.95 Est GFR ( Amer) > 60 Est GFR (Non-Af Amer) 56 L BUN/Creatinine Ratio 13 Glucose 158 H POC Glucose 103 H Calculated Osmolality 251 L Calcium 8.5 L - ABG Interpretation ABG results: PT/INR, D-dimer PT 12.1 Seconds (9.4-12.1) 12/04/18 02:40 - Pulse Oximetry Interpretation Digit-Finger O2 Sat by Pulse Oximetry: 95 (On ambient air) Palliative Scale - Palliative Performance Scale How ambulatory is this patient?: Mainly in bed What is patient's level of activity and evidence of disease?: Unable to do any work, Extensive disease How much self-care assistance does patient require?: Mainly assistance How much oral intake does the patient have?: Normal or reduced What is this patient's level of consciousness?: Full or drowsy with or without confusion Palliative Performance Score: 30 % Consult Discharge Plan - Plan Instructions: Hospice Care (GEN) Additional Instructions: You can stop all of your medications. Fluid restriction of 2L. Referrals: Yasmine Erwin MD [Primary Care Provider] - <Sharri Kuhn - Last Filed: 12/06/18 21:41> Date of Encounter: 12/06/18 - Assessment and plan (1) Goals of care, counseling/discussion Status: Acute (2) Encephalopathy acute Status: Resolved (3) Hyponatremia Status: Acute (4) Diarrhea Status: Resolved Qualifiers: Diarrhea type: presumed infectious Qualified Code(s): R19.7 - Diarrhea, unspecified (5) Colon cancer Status: Acute Qualifiers: Colon location: hepatic flexure Qualified Code(s): C18.3 - Malignant neoplasm of hepatic flexure - Time Spent With Patient Total time spent is greater than 50% in coordination of care (as documented) at patient's floor/unit and/or counseling patient: - Constitutional Vitals: Abnormal lab results Sodium 122 mEq/L (136-145) L 12/06/18 11:09 Potassium 3.2 mEq/L (3.5-5.1) L 12/06/18 03:27 Chloride 82 mEq/L (98-107) L 12/06/18 03:27 Est GFR (Non-Af Amer) 56 (> 60) L 12/06/18 03:27 Glucose 158 mg/dL (70-105) H 12/06/18 03:27 POC Glucose 103 mg/dL (70-99) H 12/05/18 11:29 Serum Osmolality 255 mOsm/kg (280-300) L 12/03/18 23:25 Calculated Osmolality 251 (280-300) L 12/06/18 03:27 Calcium 8.5 mg/dL (8.6-10.3) L 12/06/18 03:27 Total Bilirubin 1.2 mg/dL (0.3-1.0) H 12/03/18 23:25 AST 53 Units/L (13-39) H 12/03/18 23:25 Serum Total Protein 6.3 g/dL (6.4-8.9) L 12/03/18 23:25 Albumin 3.4 g/dL (3.5-5.7) L 12/03/18 23:25 Urine Osmolality 228 mOsm/kg (300-1090) L 12/04/18 00:00 - Attending Attestation I performed a history and physical examination of the patient and discussed his management with the resident. I reviewed the residents note and agree with the documented findings and plan of care. Pt today remains alert and oriented to person and place. She was sitting in the chair. Met with pt's son and [id number] at the bedside. Discussed final elements about home hos[ice. Goal remains to return home today. Family requesting no further IVF or blood works. Pt states she is ready to "go to rest home with God". Arrangements made with [facility] for discharge. Primary team agreeable. Palliative Quality Code Status: 12/03/18 23:12 Resuscitation Status: Active [RES] Routine Comment: Resuscitation Status: Full Code 12/04/18 10:22 Resuscitation Status: Active [RES] Stat Comment: Resuscitation Status: DNR-Comfort Care - Labs CBC & Chem 7: 12/06/18 11:09 Labs: Laboratory Results - last 24 hr 12/05/18 12/06/18 12/06/18 11:29 03:27 11:09 Sodium 119 L* D 122 L Potassium 3.2 L Chloride 82 L Carbon Dioxide 28 BUN 12 Creatinine 0.95 Est GFR ( Amer) > 60 Est GFR (Non-Af Amer) 56 L BUN/Creatinine Ratio 13 Glucose 158 H POC Glucose 103 H Calculated Osmolality 251 L Calcium 8.5 L - ABG Interpretation ABG results: PT/INR, D-dimer PT 12.1 Seconds (9.4-12.1) 12/04/18 02:40
--- NOTE | 2018-12-06 14:32 | Physician Discharge Referral ---
Home Health/Hosp Referral Info Transfer to: Hospice Attending Provider: Dr. Sierra Provider in Charge Post Discharge: [facility] - Diagnosis (1) Hyponatremia Priority: Primary Status: Acute (2) Diarrhea Priority: Secondary Status: Resolved (3) Colon cancer Priority: Secondary Status: Acute (4) Acute hypokalemia Priority: Secondary Status: Acute (5) Afib Priority: Secondary Status: Chronic (6) DVT prophylaxis Priority: Secondary Status: Acute (7) Encephalopathy acute Priority: Secondary Status: Resolved (8) Diastolic CHF Priority: Secondary Status: Chronic - Respiratory Orders Smoking Cessation: Smoking cessation has been advised. For more information, call the [place] Tobacco Quit Line at 0-859-JNLV-NOW. - Diet/Nutrition Diet/Nutrition Orders: Regular Diet/Nutrition: List: Okay to eat extra salt. - Activity Activity Orders: Ambulate (with assistance), Chair, Walker - Services Needed Following services are medically necessary services: Nursing, Home Health Aide - Transfer Medications Allergies/Adverse Reactions: Allergy/AdvReac Type Severity Reaction Status Date / Time ammonium lactate Allergy Rash Uncoded 12/03/18 10:23 Certification: Further, I certify that my clinical findings support that this patient is homebound (i.e. absences from home require considerable and taxing effort and are for medical reasons or restorationist services or infrequently or short duration when for other reasons) because: Homebound Reason: Patient requires assistance of a person or device to safely leave home, Absences from home are contraindicated except to recieve medical care, Leaving home requires considerable and taxing effort due to condition Attestation: My signature below is to certify that this patient is under my care and that I, or nurse practitioner, or a physician's secretary administrative assistant working with me, has a [id number] encounter with this patient.
== END 2018-12-06 16:16 | disposition hospice, home (50) | DRG 640 ==
LOC: ICNU 15:39 → EMEROOARM 15:39 → ICNU 22:30 → SUATTDRO 23:12 → 3ANU 12-05 13:31
PROVIDERS: ADMIT Student in an Organized Health Care Education/Training Program; ATTEND Student in an Organized Health Care Education/Training Program